=== PATIENT | female | born 1965 | race Caucasian/White ===

== ENCOUNTER 2021-12-12 15:25 | Inpatient (IN) | payer OTHER, SELFPAY ==
[2021-12-12] VITALS (39 sets, daily range): BP systolic 80–102; BP diastolic 14–63; PULSE 84–123; RESP 13–20; TEMP 36.8–37.9; O2SAT 93–100; BMI 16.5
--- NOTE | ~2021-12-12 | XR_ITS ---
EXAMINATION: XR chest 1V portable 12/12/2021 16:09 INDICATION: Chest pain PROCEDURE: 2 view chest COMPARISON: Comparison to multiple prior studies sequentially, with oldest reviewed study dated 03/2019. FINDINGS: The lungs are clear. The cardiomediastinal silhouette is within normal limits. There are no pleural effusions. There is no pneumothorax suspected. IMPRESSION: 1: NO ACUTE CARDIOPULMONARY DISEASE. Reviewed, dictated and finalized at location B. NSIC INVESTIGATOR
--- NOTE | ~2021-12-12 | XR_ITS ---
XR hip RT 2V w AP pelvis DATE: 12/12/2021 17:34 INDICATION: Right hip pain. No known injury. TECHNIQUE: Portable AP pelvis and AP and lateral right hip views COMPARISON: 12/07/2018 AP pelvis and right hip FINDINGS: Limited examination due to nonstandard positioning, with adduction and flexion of the right hip. The pubic symphysis and sacroiliac joints appear intact. No fracture or dislocation, avascular necrosis or bone destruction of the right hip is evident. The j oint spaces appear symmetric and well preserved. IMPRESSION: No apparent fracture; limited examination due to nonstandard positioning Reviewed, dictated and finalized at location A. F PROCUREMENT OFFICER IMPRESSION: No apparent fracture; limited examination due to nonstandard positi oning
[2021-12-12 16:20] LABS: Hematocrit 42.9 % (37.0-47.0); Hemoglobin 14.5 g/dL (12.0-15.0); Mean Corpuscular HGB Conc 33.8 g/dl (32-36); Mean Corpuscular Hemoglobin 30.9 pg (26-34); Mean Corpuscular Volume 91.3 fl (80-100); Mean Platelet Volume 10.1 fl (7.4-10.4); Platelet Count Result 375 k/mm3 (150-375); Red Cell Distribution Width 13.2 % (11.5-14.5)
[2021-12-12 16:29] LABS: INR 1.1; Prothrombin Time 13.6 Seconds (11.1-14.7)
[2021-12-12 16:30] LABS: Partial Thromboplastin Time 30.7 SECONDS (22.3-36.8)
[2021-12-12 16:32] LABS: Lactic Acid Reflex 2.8 mmol/L (0.7-2.1)
[2021-12-12 16:33] LABS: Add Urine Microscopic? YES; Alanine Aminotransferase 30 U/L (4-35); Albumin Level 4.4 g/dL (3.5-5.1); Alkaline Phosphatase 243 U/L (38-126); Anion Gap 6 mmol/L (8-16); Appearance Urine Cloudy (Clear); Aspartate Amino Transferase 37 U/L (14-36); Bilirubin Urine Negative (Negative); Bilirubin,Total 0.7 mg/dL (0.2-1.3); Blood Urea Nitrogen 14 mg/dL (7-17); Blood Urine Negative (Negative); Calcium 9.9 mg/dL (8.4-10.2); Carbon Dioxide 24 mmol/L (22-30); Chloride 108 mmol/L (98-107); Color Urine Yellow (Yellow); Estimated Glomerular Filt Rate > 60; Glucose 139 mg/dL (65-110); Glucose Urine UA Negative (Negative); Ketones Urine Negative (Negative); Leukocyte Esterase Ur 2+ LEU/UL (Negative); Mucus Urine Few /lpf; Nitrate Urine Positive (Negative); Potassium 3.9 mmol/L (3.4-5.0); Protein Urine 1+ mg/dL (Negative); Sodium 138 mmol/L (137-145); Specific Grav Ur 1.017 (1.001-1.035); Squamous Epithelial Cell Urine Few /hpf (Few); Urobilinogen Urine Negative mg/dL (<2.0); WBC Urine >75 /hpf
[2021-12-12] MEDS: SODIUM CHLORIDE 0.9% IV 1,000 ML 999 ML IV CONT (16:53)
--- NOTE | 2021-12-12 16:56 | ED.LOWEXIN ---
HPI - Extremity Injury (Lower) General Chief Complaint: Extremity Injury, Lower Stated Complaint: Hip Pain, bed bound from MS Time Seen by Provider: 12/12/21 15:34 History of Present Illness HPI Narrative: Patient is a 56-year-old female who presents to the ER with possible left hip pain. Patient found to be afebrile. Patient is chronically bedbound. She has MS. She was supposed to go to a halfway today. Patient is oriented x1-2. Cannot give history as to why she is at the hospital. Daughter arrived reports that patient's right leg was flexed up more than typical today and was complaining of pain when they tried to extend it. No known trauma. Related Data Allergies Allergy/AdvReac Type Severity Reaction Status Date / Time codeine Allergy Intermediate SPACED OUT Verified 12/01/18 14:13 guaifenesin Allergy Mild Verified 12/01/18 14:13 pseudoephedrine Allergy Unknown Verified 12/12/21 15:44 triprolidine Allergy Unknown Verified 12/12/21 15:44 Review of Systems Review of Systems: ROS unobtainable: Yes unobtainable due to mental status [facility] Past Medical History Medical History (Updated 12/12/21 @ 17:19 by Rusty Reeves MD) Anxiety Depression Kidney stones Multiple sclerosis Surgical History Surgical History (Updated 12/12/21 @ 16:59 by Rusty Reeves MD) No pertinent past surgical history Social History Social History (Updated 12/12/21 @ 16:59 by Rusty Reeves MD) Smoking status: Current every day smoker Exam Narrative: GENERAL: Chronically ill-appearing, thin, and in no acute distress. HEAD: Normocephalic, atraumatic. EYES: PERRL and EOMI. ENT: Mucous membranes moist. CHEST: Rales noted left mid and lower lung glasgow.. No respiratory distress. HEART: Tachycardic and regular. Normal peripheral pulses. ABDOMEN: Soft, nontender, nondistended. EXTREMITIES: Patient flexing the upper and lower extremities towards her chest. Arms can be extended at the skin left lower extremity. Mild tenderness over the right hip and without swelling/redness/deformity. SKIN: Warm, dry, no rash. NEURO: Alert and oriented x1-2. Course Course Emergency Course: IV ceftriaxone for infection. Admit to hospitalist service. Patient's daughter reports patient has had declining health since August 2021. Would like only comfort based treatments as patient is a DNR. Vital Signs Vital signs: Vital Signs Pulse Rate 116 H 12/12/21 15:32 Respiratory Rate 18 12/12/21 15:32 Pulse Oximetry 94 12/12/21 15:32 Temperature 100.3 F H 12/12/21 15:34 Pulse Rate 106 H 12/12/21 18:22 Respiratory Rate 17 12/12/21 18:22 Blood Pressure 93/58 L 12/12/21 18:22 Pulse Oximetry 100 12/12/21 18:01 MDM - Extremity Injury (Lower) Lab Data Result diagrams: 12/12/21 16:00 12/12/21 16:00 Labs: Lab Results 12/12/21 12/12/21 12/12/21 Range/Units 15:59 16:00 16:00 WBC 21.0 H (4.5-10.0) K/mm3 RBC 4.70 (4.2-5.4) M/mm3 Hgb 14.5 (12.0-15.0) g/dL Hct 42.9 (37.0-47.0) % MCV 91.3 (80-100) fl MCH 30.9 (26-34) pg MCHC 33.8 (32-36) g/dl RDW 13.2 (11.5-14.5) % Plt Count 375 (150-375) k/mm3 MPV 10.1 (7.4-10.4) fl Immature Gran % (Auto) Not Reportable Neut % (Auto) Not Reportable Lymph % (Auto) Not Reportable Cedar % (Auto) Not Reportable Eos % (Auto) Not Reportable Baso % (Auto) Not Reportable Lymph # (Auto) Not Reportable Cedar # (Auto) Not Reportable Eos # (Auto) Not Reportable Baso # (Auto) Not Reportable Abs Immat Gran (auto) Not Reportable Absolute Neuts (auto) Not Reportable Absolute Nucleated RBC Not Reportable Total Counted 100 Neutrophils % (Manual) 67 (46-73) % Band Neutrophils % 25 H (0-6) % Monocytes % (Manual) 2 L (3-9) % Metamyelocytes % 3 % Myelocytes % 3 % Nucleated RBC % Not Reportable Abs Neuts (Manual) 19.32 H
[2021-12-12 17:06] LABS: Band Neutrophils Percent 25 % (0-6); Metamyelocytes Percent 3 %; Monocytes Absolute Manual 0.42 K/mm3 (0.1-0.90); Monocytes Percent Manual 2 % (3-9); Myelocytes Percent 3 %; Neutrophils Absolute Manual 19.32 K/mm3 (1.7-7.2); Neutrophils Percent Manual 67 % (46-73); Platelet Estimate Adequate (Adequate); Total Cells Counted 100
[2021-12-12 17:07] LABS: Smudge Cells FEW
--- NOTE | 2021-12-12 17:32 | PC.NURSE ---
community outreach coordinator ordered pt room tray @ [phone]
[2021-12-12] MEDS: LACTATED RINGERS 1,000 ML 999 ML IV CONT (17:50)
[2021-12-12 19:17] LABS: Reflex Lactic Acid Yes or No Add Lactic
[2021-12-12] MEDS: SODIUM CHLORIDE 0.9% IV 1,000 ML 125 ML IV CONT (20:22)
--- NOTE | 2021-12-12 20:44 | PM.IMHP ---
H&P: HPI History of Present Illness Date/Time: 12/12/21 20:44 this is a 56-year-old female patient with a history of MS and is typically bedbound. The patient came in to the emergency room with complaints of left hip pain. The patient was supposed to be placed in a retirement today. She is answering some questions without difficulty per the daughters at the bedside. The daughter states that the patient is typically contracted some but is more contracted today than usual. The patient has no known trauma. Her white count is listed as 21.0. The patient has 25% band neutrophils. Her lactic was 2.8 repeat is 3.3. AST 37 alkaline phosphatase 243. C reactive protein 3.0. The patient was found to be positive for UTI. Hip and pelvis x-ray no apparent fracture limited examination due to nonstandard positioning. Chest x-ray was read as no acute Cardiopulmonary disease. The patient was given 3 L of fluid in the emergency room as the Rocephin. Urine cultures are pending. The patient is being admitted to observation status on the date of service of 12/12/2021. Chief Complaint: Weakness Review of Systems Review of Systems: The patient was answering some questions but was not able answer all them and the daughter was at the bedside answering questions as well too. ROS unobtainable: Yes unobtainable due to mental status [facility] Past Medical History Medical History (Updated 12/12/21 @ 23:21 by Shayla Mccallum NP) Anxiety Depression Kidney stones Multiple sclerosis Surgical History Surgical History No pertinent past surgical history Family History Family History Father Dementia Heart disease Social History Social History (Updated 12/12/21 @ 23:16 by Shayla Mccallum NP) Social History: The patient has 5 children. And lives with her but it sounds like she was supposed to go to a retirement today. The patient is typically bed lb and is on disability. 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 Her daughter saira castaneda is her power of watermaster for healthcare. patient is listed as a current smoker Code status DNR Smoking status: Current every day smoker Meds Home Medications and Allergies Home Medications Medication Instructions Recorded Confirmed Type amoxicillin 875 mg PO Q12H 12/12/21 History cholecalciferol (vitamin D3) 1,250 mcg PO WEEKLY 12/12/21 History fingolimod [Gilenya] 0.5 mg PO DAILY 12/12/21 History megestrol 400 mg PO DAILY 12/12/21 History mirtazapine 30 mg PO HS 12/12/21 History Allergies Allergy/AdvReac Type Severity Reaction Status Date / Time codeine Allergy Intermediate SPACED OUT Verified 12/01/18 14:13 guaifenesin Allergy Mild Verified 12/01/18 14:13 pseudoephedrine Allergy Unknown Verified 12/12/21 15:44 triprolidine Allergy Unknown Verified 12/12/21 15:44 Vital Signs Vital Signs - 24 hr 12/12/21 15:32 12/12/21 15:33 12/12/21 15:34 Temperature 37.9 C H Pulse Rate 116 H 115 H 114 H Respiratory Rate 18 18 18 Blood Pressure 102/48 L 102/48 L Pulse Oximetry 94 94 94 12/12/21 15:45 12/12/21 15:46 12/12/21 16:00 Temperature Pulse Rate 114 H 112 H 123 H Respiratory Rate 18 17 19 Blood Pressure 101/15 L 85/19 L Pulse Oximetry 12/12/21 16:01 12/12/21 16:15 12/12/21 16:16 Temperature Pulse Rate 117 H 110 H 110 H Respiratory Rate 19 18 18 Blood Pressure 98/14 L Pulse Oximetry 12/12/21 16:30 12/12/21 16:31 12/12/21 16:45 Temperature Pulse Rate 105 H 104 H 104 H Respiratory Rate 15 19 19 Blood Pressure 97/41 L 99/45 L Pulse Oximetry 12/12/21 16:46 12/12/21 17:00 12/12/21 17:01 Temperature Pulse Rate 101 H 103 H 104 H Respiratory Rate 16 18 18 Blood Pressure 94/18 L Pulse Oximetry 12/12/21 17:15 12/12/21 17:16 12/12/21 17:30 Temperature Pulse Rate 108 H 106 H 105 H Respirat
[2021-12-12 22:28] LABS: Lactic Acid 3.3 mmol/L (0.7-2.1)
[2021-12-13] VITALS (19 sets, daily range): BP systolic 81–96; BP diastolic 44–54; PULSE 69–86; RESP 14–20; TEMP 35.6–36.9; O2SAT 94–100
[2021-12-13] MEDS: SODIUM CHLORIDE 0.9% IV 1,000 ML 125 ML IV CONT ×3 (00:07→18:03)
--- NOTE | 2021-12-13 01:45 | PC.NURSE ---
Left message at phone number for Lur[facility] to call back to complete admission.
--- NOTE | 2021-12-13 04:36 | PC.NURSE ---
This patient, Corry Canela, was admitted to IMU Room 200-01. Patient unable oriented to hospital policies and general routines including ID bracelet, bed and alarms, visiting hours, pain management, procedures, bathroom and other care routines, personal items, smoking policy, room service/diet, and visiting hours due to orientation status. Unable to reach family as of yet.
[2021-12-13 05:03] LABS: Basophils Absolute Auto 0.1 K/mm3 (0.0-0.1); Basophils Percent Auto 0.3 % (0.2-1.2); Eosinophils Absolute Auto 0.1 K/mm3 (0-0.3); Eosinophils Percent Auto 0.4 % (0-4.4); Hematocrit 34.4 % (37.0-47.0); Hemoglobin 10.7 g/dL (12.0-15.0); Immature Granulocyte Absolute 0.06 K/mm3 (0.00-0.031); Immature Granulocyte Percent A 0.4 % (0-0.5); Lymphocytes Absolute Auto 1.63 K/mm3 (0.9-3.2); Lymphocytes Percent Auto 11.1 % (18.3-44.2); Mean Corpuscular HGB Conc 31.1 g/dl (32-36); Mean Corpuscular Hemoglobin 30.8 pg (26-34); Mean Corpuscular Volume 99.1 fl (80-100); Mean Platelet Volume 10.2 fl (7.4-10.4); Monocytes Absolute Auto 0.5 K/mm3 (0.1-0.6); Monocytes Percent Auto 3.5 % (2.6-8.5); Neutrophils Absolute Auto 12.4 K/mm3 (1.3-6.7); Neutrophils Percent Auto 84.3 % (45.5-73.1); Platelet Count Result 271 k/mm3 (150-375); Red Blood Count 3.47 M/mm3 (4.2-5.4); Red Cell Distribution Width 13.5 % (11.5-14.5); White Blood Count 14.7 K/mm3 (4.5-10.0)
[2021-12-13 05:10] LABS: Lactate Dehydrogenase 321 U/L (313-618); Magnesium 1.8 mg/dL (1.6-2.3)
[2021-12-13 05:11] LABS: Lactic Acid Reflex 0.7 mmol/L (0.7-2.1)
[2021-12-13 05:54] LABS: Thyroid Stimulating Hormone Reflex 0.862 uIU/mL (0.465-4.68)
[2021-12-13] MEDS: ENOXAPARIN 40 MG/0.4 ML SYRINGE SUB-Q (09:42)
[2021-12-13] MEDS: EUCERIN CREAM 120 GM JAR 1 APPLIC TOPICAL (09:43)
--- NOTE | 2021-12-13 10:17 | PM.IMPN ---
Progress Note: A&P Assessment and Plan (1) UTI (urinary tract infection): Code(s): N39.0 - Urinary tract infection, site not specified Status: Acute Assessment and Plan: the patient was started on Rocephin. Blood and urine cultures are pending. The patient has leukocytosis. (2) Sepsis: Code(s): A41.9 - Sepsis, unspecified organism Status: Acute (3) Multiple sclerosis: Code(s): G35 - Multiple sclerosis Status: Chronic Assessment and Plan: The patient is typically bed bound but the patient is more weak than normal. The family stated that the we are going to put her in a detention today. I did consult skin care instructor and I ordered PT OT. Continue with home medications. (4) Depression: Code(s): F32.A - Depression, unspecified Status: Chronic Assessment and Plan: Continue with home medications. (5) Anxiety: Code(s): F41.9 - Anxiety disorder, unspecified Status: Chronic Assessment and Plan: Continue with home medications. Additional Plan 12/13/21 BP low this am but labs improved RN requested to repeat VS bolus 500cc NS if repeat pressure still low monitor VS cont Rocephin am labs ordered Time Spent With Patient Time with patient: 25 - 35 minutes Subjective Date/time seen: 12/13/21 10:17 pt without complaints oriented x 2 cooperative Exam Narrative: GEN: NAD, AAOx2, cooperative, eating breakfast HEENT: NCAT, MMM, EOMI Neck: no JVD Heart: S1S2 RRR Lungs: symmetric chest rise, no use of accessory muscles Abd: soft, NT, ND Ext: moves all, no cyanosis, no clubbing, no edema Objective Data Vital Signs Vital Signs: Vital Signs - 24 hr 12/12/21 15:32 12/12/21 15:33 12/12/21 15:34 Temperature 100.3 F H Pulse Rate 116 H 115 H 114 H Respiratory Rate 18 18 18 Blood Pressure 102/48 L 102/48 L Pulse Oximetry 94 94 94 12/12/21 15:45 12/12/21 15:46 12/12/21 16:00 Temperature Pulse Rate 114 H 112 H 123 H Respiratory Rate 18 17 19 Blood Pressure 101/15 L 85/19 L Pulse Oximetry 12/12/21 16:01 12/12/21 16:15 12/12/21 16:16 Temperature Pulse Rate 117 H 110 H 110 H Respiratory Rate 19 18 18 Blood Pressure 98/14 L Pulse Oximetry 12/12/21 16:30 12/12/21 16:31 12/12/21 16:45 Temperature Pulse Rate 105 H 104 H 104 H Respiratory Rate 15 19 19 Blood Pressure 97/41 L 99/45 L Pulse Oximetry 12/12/21 16:46 12/12/21 17:00 12/12/21 17:01 Temperature Pulse Rate 101 H 103 H 104 H Respiratory Rate 16 18 18 Blood Pressure 94/18 L Pulse Oximetry 12/12/21 17:15 12/12/21 17:16 12/12/21 17:30 Temperature Pulse Rate 108 H 106 H 105 H Respiratory Rate 18 17 17 Blood Pressure 96/46 L 91/41 L Pulse Oximetry 12/12/21 17:31 12/12/21 17:45 12/12/21 17:46 Temperature Pulse Rate 103 H 106 H 103 H Respiratory Rate 17 20 17 Blood Pressure 92/41 L Pulse Oximetry 100 100 12/12/21 18:00 12/12/21 18:01 12/12/21 18:15 Temperature Pulse Rate 102 H 100 103 H Respiratory Rate 16 17 15 Blood Pressure 90/47 L Pulse Oximetry 99 100 12/12/21 18:16 12/12/21 18:22 12/12/21 18:23 Temperature Pulse Rate 106 H 106 H 103 H Respiratory Rate 17 17 18 Blood Pressure 80/46 L 93/58 L Pulse Oximetry 12/12/21 18:30 12/12/21 18:31 12/12/21 18:45 Temperature Pulse Rate 105 H 102 H 98 Respiratory Rate 19 15 17 Blood Pressure 91/59 L 99/59 L Pulse Oximetry 12/12/21 18:46 12/12/21 19:00 12/12/21 19:01 Temperature Pulse Rate 99 95 98 Respiratory Rate 15 13 16 Blood Pressure 94/55 L Pulse Oximetry 12/12/21 19:15 12/12/21 19:16 12/12/21 20:20 Temperature 99.1 F Pulse Rate 100 99 95 Respiratory Rate 16 16 15 Blood Pressure 100/57 L 94/63 L Pulse Oximetry 93 95 94 12/12/21 21:56 12/12/21 22:24 01/28/22 22:30 Temperature 98.3 F Pulse Rate 89 88 84 Respiratory Rate 17 16 Blood Pressure 93/53 L Pulse Oximet
[2021-12-13] MEDS: SODIUM CHLORIDE 0.9% IV 500 ML IV CONT (11:10)
[2021-12-13] MEDS: HYDROcodone/acetaminophen (*CRX) 5-325 MG TABLET 1 TAB PO (22:53)
[2021-12-14] VITALS (16 sets, daily range): BP systolic 84–110; BP diastolic 45–76; PULSE 52–78; RESP 12–20; TEMP 36.1–37.4; O2SAT 97–100
[2021-12-14] MEDS: SODIUM CHLORIDE 0.9% IV 1,000 ML 125 ML IV CONT ×3 (02:05→17:45)
[2021-12-14 05:25] LABS: Basophils Percent Auto 0.4 % (0.2-1.2); Eosinophils Absolute Auto 0.1 K/mm3 (0-0.3); Eosinophils Percent Auto 2.3 % (0-4.4); Hematocrit 30.7 % (37.0-47.0); Hemoglobin 9.7 g/dL (12.0-15.0); Immature Granulocyte Absolute 0.02 K/mm3 (0.00-0.031); Immature Granulocyte Percent A 0.4 % (0-0.5); Lymphocytes Absolute Auto 2.13 K/mm3 (0.9-3.2); Lymphocytes Percent Auto 38.1 % (18.3-44.2); Mean Corpuscular HGB Conc 31.6 g/dl (32-36); Mean Corpuscular Hemoglobin 30.6 pg (26-34); Mean Corpuscular Volume 96.8 fl (80-100); Mean Platelet Volume 10.8 fl (7.4-10.4); Monocytes Absolute Auto 0.4 K/mm3 (0.1-0.6); Neutrophils Absolute Auto 2.9 K/mm3 (1.3-6.7); Neutrophils Percent Auto 51.8 % (45.5-73.1); Platelet Count Result 221 k/mm3 (150-375); Red Blood Count 3.17 M/mm3 (4.2-5.4); Red Cell Distribution Width 13.6 % (11.5-14.5); White Blood Count 5.6 K/mm3 (4.5-10.0)
[2021-12-14] MEDS: SODIUM CHLORIDE 0.9% IV 500 ML IV CONT ×2 (05:50→12:09)
[2021-12-14 06:19] LABS: Anion Gap 1 mmol/L (8-16); Blood Urea Nitrogen 12 mg/dL (7-17); CRP 11.4 mg/dL (<1.0); Calcium 8.1 mg/dL (8.4-10.2); Carbon Dioxide 23 mmol/L (22-30); Chloride 113 mmol/L (98-107); Estimated CRCL calculation 71 ml/min; Estimated Glomerular Filt Rate > 60; Glucose 78 mg/dL (65-110); Magnesium 1.8 mg/dL (1.6-2.3); Potassium 3.7 mmol/L (3.4-5.0); Sodium 137 mmol/L (137-145)
--- NOTE | 2021-12-14 10:00 | PM.IMPN ---
Progress Note: A&P Assessment and Plan (1) Multiple drug resistant organism (MDRO) culture positive: Code(s): Z16.24 - Resistance to multiple antibiotics Status: Acute (2) Sepsis: Code(s): A41.9 - Sepsis, unspecified organism Status: Acute (3) Anxiety: Code(s): F41.9 - Anxiety disorder, unspecified Status: Chronic (4) Depression: Code(s): F32.A - Depression, unspecified Status: Chronic (5) Multiple sclerosis: Code(s): G35 - Multiple sclerosis Status: Chronic (6) UTI (urinary tract infection): Code(s): N39.0 - Urinary tract infection, site not specified Status: Acute (7) Bacterial infection due to Morganella morganii: Code(s): A49.8 - Other bacterial infections of unspecified site Status: Acute Additional Plan 12/13/21 BP low this am but labs improved RN requested to repeat VS bolus 500cc NS if repeat pressure still low monitor VS cont Rocephin am labs ordered 12/14/21 BP remains low despite 3L NS MAP <65 midodrine low dose started CHEETAH score + fluid responsive cont Rocephin for MDRO M morganii UTI Day 3 no oral medication available will need to complete treatment given pathogenicity and MDRO of bacteria will treat for 5 days to ensure treatment Subjective Date/time seen: 12/14/21 10:00 doing ok RN bedside Cheetah + IVFs ordered Exam Narrative: GEN: NAD, AAOx3, cooperative HEENT: NCAT, MMM, EOMI Neck: no JVD Lungs: symmetric chest rise, no use of accessory muscles Abd: soft, NT, ND Ext: moves all, no cyanosis, no clubbing, no edema Objective Data Vital Signs Vital Signs: Vital Signs - 24 hr 12/13/21 12:00 12/13/21 13:12 12/13/21 14:00 Temperature 98.0 F Pulse Rate 76 75 78 Respiratory Rate 16 Blood Pressure 89/44 L Pulse Oximetry 97 12/13/21 16:00 12/13/21 16:19 12/13/21 18:00 Temperature 98.3 F Pulse Rate 69 73 86 Respiratory Rate 16 Blood Pressure 84/51 L Pulse Oximetry 98 12/13/21 20:00 12/13/21 22:00 12/14/21 00:00 Temperature 98.5 F 98.1 F Pulse Rate 76 78 74 Respiratory Rate 16 14 Blood Pressure 96/52 L 92/52 L Pulse Oximetry 100 100 12/14/21 00:11 12/14/21 02:00 12/14/21 04:00 Temperature 97.0 F L Pulse Rate 69 69 Respiratory Rate 12 Blood Pressure 84/45 L Pulse Oximetry 98 97 12/14/21 06:00 12/14/21 07:29 Temperature 97.5 F L Pulse Rate 71 62 Respiratory Rate 16 Blood Pressure 88/52 L Pulse Oximetry 97 Intake/Output Intake/Output: Intake & Output 12/11/21 12/12/21 12/13/21 12/14/21 23:59 23:59 23:59 23:59 Intake Total 2150 3180 1300 Balance 2150 3180 1300 Meds/Results Medications: Active Medications Generic Name Dose Route Start Last Admin Trade Name Freq PRN Reason Stop Dose Admin Acetaminophen 650 mg 12/12/21 17:10 Acetaminophen 325 Mg Tablet PO Q4H PRN Mild Pain (1-3) or Fever Hydrocodone Bitart/Acetaminophen 1 tab 12/12/21 17:10 12/13/21 22:53 Hydrocodone/Acetaminophen (*Crx) 5-325 Mg Tablet PO 1 tab Q4H PRN Administration Pain Rated 4-6 Enoxaparin Sodium 40 mg 12/13/21 09:00 12/13/21 09:42 Enoxaparin 40 Mg/0.4 Ml Syringe SUB-Q 40 mg DAILY JOCELYN Administration Sodium Chloride 1,000 mls @ 125 mls/hr 12/12/21 17:10 12/14/21 02:05 Normal Saline Iv IV CONT 125 mls/hr .Q8H JOCELYN Administration Ceftriaxone Sodium/Dextrose 1 gm in 50 mls @ 100 mls/hr 12/13/21 18:00 12/13/21 18:30 Rocephin 1 Gm/D5w 50 Ml IVPB Infused QPM JOCELYN Infusion Multi-Ingred Cream/Lotion/Oil/Oint 1 applic 12/13/21 09:00 12/13/21 09:43 Eucerin Cream 120 Gm Jar TOPICAL 1 applic DAILY JOCELYN Administration Ondansetron HCl 4 mg 12/12/21 17:10 Ondansetron Inj 4 Mg/2 Ml Vial IV PUSH Q4H PRN Nausea Radiology Results: ITS Impressions Chest X-Ray 12/12/21 16:17 IMPRESSION: 1: NO ACUTE CARDIOPULMONARY DISEASE. Hip/Pelvis X-Ray
[2021-12-14] MEDS: ENOXAPARIN 40 MG/0.4 ML SYRINGE SUB-Q (10:11)
[2021-12-14] MEDS: EUCERIN CREAM 120 GM JAR 1 APPLIC TOPICAL (10:11)
[2021-12-14] MEDS: MIDODRINE HCL 2.5 MG TABLET PO (17:44)
[2021-12-15] VITALS (17 sets, daily range): BP systolic 92–122; BP diastolic 46–87; PULSE 49–79; RESP 16–20; TEMP 35.6–36.8; O2SAT 97–100; BMI 17.3
[2021-12-15] MEDS: HYDROcodone/acetaminophen (*CRX) 5-325 MG TABLET 1 TAB PO (00:15)
[2021-12-15] MEDS: SODIUM CHLORIDE 0.9% IV 1,000 ML 125 ML IV CONT ×3 (00:18→16:36)
[2021-12-15] MEDS: EUCERIN CREAM 120 GM JAR 1 APPLIC TOPICAL (09:04)
[2021-12-15] MEDS: ENOXAPARIN 40 MG/0.4 ML SYRINGE SUB-Q (09:04)
[2021-12-15] MEDS: MIDODRINE HCL 2.5 MG TABLET PO ×2 (09:04→16:31)
--- NOTE | 2021-12-15 18:28 | PM.IMPN ---
Progress Note: A&P Assessment and Plan (1) Multiple drug resistant organism (MDRO) culture positive: Code(s): Z16.24 - Resistance to multiple antibiotics Status: Acute (2) Sepsis: Code(s): A41.9 - Sepsis, unspecified organism Status: Acute (3) Anxiety: Code(s): F41.9 - Anxiety disorder, unspecified Status: Chronic Assessment and Plan: Continue with home medications. (4) Depression: Code(s): F32.A - Depression, unspecified Status: Chronic Assessment and Plan: Continue with home medications. (5) Multiple sclerosis: Code(s): G35 - Multiple sclerosis Status: Chronic Assessment and Plan: The patient is typically bed bound but the patient is more weak than normal. The family stated that the we are going to put her in a care home today. I did consult care assistant and I ordered PT OT. Continue with home medications. (6) UTI (urinary tract infection): Code(s): N39.0 - Urinary tract infection, site not specified Status: Acute Assessment and Plan: the patient was started on Rocephin. Blood and urine cultures are pending. The patient has leukocytosis. (7) Bacterial infection due to Morganella morganii: Code(s): A49.8 - Other bacterial infections of unspecified site Status: Acute Additional Plan 12/13/21 BP low this am but labs improved RN requested to repeat VS bolus 500cc NS if repeat pressure still low monitor VS cont Rocephin am labs ordered 12/14/21 BP remains low despite 3L NS MAP <65 midodrine low dose started CHEETAH score + fluid responsive cont Rocephin for MDRO M morganii UTI Day 3 no oral medication available will need to complete treatment given pathogenicity and MDRO of bacteria will treat for 7 days to ensure treatment 12/15/21 Patient continues to clinically improve Currently on day 4 of 7 Rocephin treatment 7 day course as patient arrived to the hospital septic hypotensive with complicated multidrug resistant UTI without PO treatment option cont midodrine decrease IVFs to 75cc/ hr PO intake and bp improving anticipate dc of NS possibly tomorrow cont supportive care cont home meds when brought in by daughter Subjective Date/time seen: 12/15/21 18:28 Patient looks significantly improved sitting up in a chair eating today without complaints Spoke with rn case management regarding discharge to shelter facility with midline and ongoing Rocephin to ensure total eradication of multi drug-resistant organism. She states that the shelter facility will be unable to administer Rocephin IV but they would be able to do this I a.m. if this would be appropriate. I advised her that I have not previously sent to patient with IV to IM Rocephin for prolonged treatment course, however, I will defer this to oncoming hospitalist based on their knowledge, preferences, and experiences. Exam Narrative: GEN: NAD, AAOx3, cooperative sitting up in a chair eating her lunch HEENT: NCAT, MMM, EOMI Neck: no JVD Lungs: symmetric chest rise, no use of accessory muscles Abd: soft, NT, ND Ext: moves all, no cyanosis, no clubbing, no edema Objective Data Vital Signs Vital Signs: Vital Signs - 24 hr 12/14/21 20:00 12/14/21 22:00 12/14/21 23:24 Temperature 98.0 F Pulse Rate 71 69 65 Respiratory Rate 20 Blood Pressure 110/76 Pulse Oximetry 97 12/14/21 23:52 12/15/21 00:00 12/15/21 02:00 Temperature 97.9 F Pulse Rate 62 58 L 62 Respiratory Rate 20 Blood Pressure 105/74 Pulse Oximetry 97 12/15/21 03:02 12/15/21 04:00 12/15/21 06:00 Temperature 97.8 F Pulse Rate 62 49 L 57 L Respiratory Rate 18 Blood Pressure 109/76 Pulse Oximetry 97 12/15/21 08:00 12/15/21 08:30 12/15/21 10:00 Temperature 98.3 F Pulse Rate 54 L 61 79 Respiratory Rate 18 Blood Pressure 122/67 Pulse Oximetry 98 12/15/21 12:00 12/15/21 12:46 12/15/21 14:00
[2021-12-15] MEDS: MIRTAZAPINE 30 MG TABLET PO (21:14)
--- NOTE | 2021-12-15 22:54 | PHAR ---
VERIFIED HOME MED: *USE FROM HOME* Fingolimod [Gilenya] 0.5 mg Capsule TAKE ONE CAPSULE BY MOUTH ONCE DAILY
[2021-12-16] VITALS (13 sets, daily range): BP systolic 88–109; BP diastolic 44–95; PULSE 53–70; RESP 16–18; TEMP 35.9–36.6; O2SAT 97–99
[2021-12-16] MEDS: SODIUM CHLORIDE 0.9% IV 1,000 ML 75 ML IV CONT (04:06)
[2021-12-16 05:01] LABS: Basophils Percent Auto 0.5 % (0.2-1.2); Eosinophils Absolute Auto 0.2 K/mm3 (0-0.3); Eosinophils Percent Auto 3.2 % (0-4.4); Hematocrit 35.2 % (37.0-47.0); Hemoglobin 11.2 g/dL (12.0-15.0); Immature Granulocyte Absolute 0.02 K/mm3 (0.00-0.031); Immature Granulocyte Percent A 0.3 % (0-0.5); Lymphocytes Percent Auto 42.1 % (18.3-44.2); Mean Corpuscular HGB Conc 31.8 g/dl (32-36); Mean Corpuscular Hemoglobin 30.6 pg (26-34); Mean Corpuscular Volume 96.2 fl (80-100); Mean Platelet Volume 10.9 fl (7.4-10.4); Monocytes Absolute Auto 0.4 K/mm3 (0.1-0.6); Neutrophils Absolute Auto 2.9 K/mm3 (1.3-6.7); Neutrophils Percent Auto 46.9 % (45.5-73.1); Platelet Count Result 300 k/mm3 (150-375); Red Blood Count 3.66 M/mm3 (4.2-5.4); Red Cell Distribution Width 13.5 % (11.5-14.5); White Blood Count 6.2 K/mm3 (4.5-10.0)
[2021-12-16 05:23] LABS: Alanine Aminotransferase 128 U/L (4-35); Albumin Level 2.7 g/dL (3.5-5.1); Alkaline Phosphatase 238 U/L (38-126); Anion Gap 4 mmol/L (8-16); Aspartate Amino Transferase 102 U/L (14-36); Bilirubin,Total 0.2 mg/dL (0.2-1.3); Blood Urea Nitrogen 7 mg/dL (7-17); Calcium 8.4 mg/dL (8.4-10.2); Carbon Dioxide 24 mmol/L (22-30); Chloride 113 mmol/L (98-107); Estimated CRCL calculation 71 ml/min; Estimated Glomerular Filt Rate > 60; Glucose 115 mg/dL (65-110); Phosphorus 3.6 mg/dL (2.5-4.5); Potassium 3.7 mmol/L (3.4-5.0); Sodium 141 mmol/L (137-145)
[2021-12-16] MEDS: MIDODRINE HCL 2.5 MG TABLET PO (08:31)
[2021-12-16] MEDS: ENOXAPARIN 40 MG/0.4 ML SYRINGE SUB-Q (08:31)
[2021-12-16] MEDS: MEGESTROL ACETATE (*CHEMO) ORAL SUSP 40 MG/ML SYR 400 MG PO (08:32)
[2021-12-16] MEDS: EUCERIN CREAM 120 GM JAR 1 APPLIC TOPICAL (08:34)
--- NOTE | 2021-12-16 11:54 | PCOTNOTE ---
Attempted to see Patient for A.M. treatment session. Patient was very difficult to keep aroused, stated, so sleepy/drowsy. Therapist took BP, supine 88/44, HR 56, O2 98%. RN notified and aware.
[2021-12-16] MEDS: LIDOCAINE HCL 1% LOCAL INJ 2 ML AMPUL 5 ML INFILTRATE (13:35)
--- NOTE | 2021-12-16 15:31 | PM.IMPN ---
Progress Note: A&P Assessment and Plan (1) Multiple drug resistant organism (MDRO) culture positive: Code(s): Z16.24 - Resistance to multiple antibiotics Status: Acute (2) Sepsis: Code(s): A41.9 - Sepsis, unspecified organism Status: Acute (3) Anxiety: Code(s): F41.9 - Anxiety disorder, unspecified Status: Chronic Assessment and Plan: Continue with home medications. (4) Depression: Code(s): F32.A - Depression, unspecified Status: Chronic Assessment and Plan: Continue with home medications. (5) Multiple sclerosis: Code(s): G35 - Multiple sclerosis Status: Chronic Assessment and Plan: The patient is typically bed bound but the patient is more weak than normal. The family stated that the we are going to put her in a mcc today. I did consult care tech and I ordered PT OT. Continue with home medications. (6) UTI (urinary tract infection): Code(s): N39.0 - Urinary tract infection, site not specified Status: Acute Assessment and Plan: the patient was started on Rocephin. Blood and urine cultures are pending. The patient has leukocytosis. (7) Bacterial infection due to Morganella morganii: Code(s): A49.8 - Other bacterial infections of unspecified site Status: Acute Additional Plan 12/13/21 BP low this am but labs improved RN requested to repeat VS bolus 500cc NS if repeat pressure still low monitor VS cont Rocephin am labs ordered 12/14/21 BP remains low despite 3L NS MAP <65 midodrine low dose started CHEETAH score + fluid responsive cont Rocephin for MDRO M morganii UTI Day 3 no oral medication available will need to complete treatment given pathogenicity and MDRO of bacteria will treat for 7 days to ensure treatment 12/15/21 Patient continues to clinically improve Currently on day 4 of 7 Rocephin treatment 7 day course as patient arrived to the hospital septic hypotensive with complicated multidrug resistant UTI without PO treatment option cont midodrine decrease IVFs to 75cc/ hr PO intake and bp improving anticipate dc of NS possibly tomorrow cont supportive care cont home meds when brought in by daughter Subjective Date/time seen: 12/16/21 15:31 S:Patient looks significantly improved sitting up in a chair eating today without complaints Spoke with registered nurse [facility] case manager regarding discharge to [facility] facility with midline and ongoing Rocephin to ensure total eradication of multi drug-resistant organism. Review of Systems Review of Systems: ROS unobtainable: Yes unobtainable due to mental status ENT: Reports Normal hearing present Neurologic: Reports Normal hearing present Exam Narrative: GEN: NAD, AAOx3, cooperative sitting up in a chair eating her lunch HEENT: NCAT, MMM, EOMI Neck: no JVD Lungs: symmetric chest rise, no use of accessory muscles Abd: soft, NT, ND Ext: moves all, no cyanosis, no clubbing, no edema Const: General: cooperative, comfortable, no acute distress, awake, ill appearing and tired appearing Nutritional Appearance: average body habitus and thin Orientation/consciousness: oriented to person Limitations: no limitations HENMT: Head: normal to inspection, No palpable skull fracture present, normocephalic and atraumatic Ears: hearing grossly normal bilaterally General nose exam: Normal external nose present Eyes: EOM: EOMs intact bilaterally Neck: Neck: normal visual inspection Chest: Chest palpation & inspection: normal inspection of the chest Resp: Effort & Inspection: normal respiratory effort Auscultation: clear to auscultation bilaterally Percussion: percussion normal Cardio: Peripheral pulses: Peripheral pulses 2+ throughout GI: Inspection: normal to inspection Auscultation: normal bowel sounds Rectal Exam: deferred Skin: General skin exam: normal color Hair: normal Other: dry patches of skin to the bottom of he
--- NOTE | 2021-12-16 15:31 | PM.DS ---
DS: Admitting Diagnosis Discharge Date 12/16/2021 Admitting Diagnosis (1) UTI (urinary tract infection): Code(s): N39.0 - Urinary tract infection, site not specified Status: Acute Assessment and Plan: the patient was started on Rocephin. Blood and urine cultures are pending. The patient has leukocytosis. (2) Multiple sclerosis: Code(s): G35 - Multiple sclerosis Status: Chronic Assessment and Plan: The patient is typically bed bound but the patient is more weak than normal. The family stated that the we are going to put her in a custodial today. I did consult home care rn and I ordered PT OT. Continue with home medications. (3) Depression: Code(s): F32.A - Depression, unspecified Status: Chronic Assessment and Plan: Continue with home medications. (4) Anxiety: Code(s): F41.9 - Anxiety disorder, unspecified Status: Chronic Assessment and Plan: DS: Discharge Diagnosis Discharge Diagnosis (1) Multiple drug resistant organism (MDRO) culture positive: Code(s): Z16.24 - Resistance to multiple antibiotics Status: Acute (2) Sepsis: Code(s): A41.9 - Sepsis, unspecified organism Status: Acute (3) Anxiety: Code(s): F41.9 - Anxiety disorder, unspecified Status: Chronic Assessment and Plan: Continue with home medications. (4) Depression: Code(s): F32.A - Depression, unspecified Status: Chronic Assessment and Plan: Continue with home medications. (5) Multiple sclerosis: Code(s): G35 - Multiple sclerosis Status: Chronic Assessment and Plan: The patient is typically bed bound but the patient is more weak than normal. The family stated that the we are going to put her in a custodial today. I did consult home care rn and I ordered PT OT. Continue with home medications. (6) UTI (urinary tract infection): Code(s): N39.0 - Urinary tract infection, site not specified Status: Acute Assessment and Plan: the patient was started on Rocephin. Blood and urine cultures are pending. The patient has leukocytosis. (7) Bacterial infection due to Morganella morganii: Code(s): A49.8 - Other bacterial infections of unspecified site Status: Acute DS: Summary Hospital Course Reason for hospitalization: Weakness. Hospital Course: this is a 56-year-old female patient with a history of MS and is typically bedbound. The patient came in to the emergency room with complaints of left hip pain. The patient was supposed to be placed in a custodial today. She is answering some questions without difficulty per the daughters at the bedside. The daughter states that the patient is typically contracted some but is more contracted today than usual. The patient has no known trauma. Her white count is listed as 21.0. The patient has 25% band neutrophils. Her lactic was 2.8 repeat is 3.3. AST 37 alkaline phosphatase 243. C reactive protein 3.0. The patient was found to be positive for UTI. Hip and pelvis x-ray no apparent fracture limited examination due to nonstandard positioning. Chest x-ray was read as no acute Cardiopulmonary disease. The patient was given 3 L of fluid in the emergency room as the Rocephin. Urine cultures are pending. The patient is being admitted to observation status on the date of service of 12/12/2021. On rocephon, Patient continues to clinically improve. She received 5 of 7 Rocephin treatment in the hospital. She was discharged to receive 2 days of IV antibiotics in the custodial. Urine culture grew Morganella morganii sensitive to rocephin. Time Spent with Patient Time attestation: Total time spent providing and/or coordinating discharge services: Exam Narrative: GEN: NAD, AAOx3, cooperative sitting up in a chair eating her lunch HEENT: NCAT, MMM, EOMI Neck: no JVD Lungs: symmetric chest rise, no use of accessor
[2021-12-16 16:00] LABS: EDCOVIDSCREEN Negative (Negative)
== END 2021-12-16 17:35 | DRG 872 ==
LOC: ANHED 17:19 → ANHIMU 18:44
PROVIDERS: Internal Medicine; Nurse Practitioner; Admitting Provider Family Medicine; Emergency Provider Emergency Medicine; PCP Family Medicine; Visit Provider Hospitalist
DX: A41.9 Sepsis, unspecified organism (principal); N39.0 Urinary tract infection, site not specified; Z16.24 Resistance to multiple antibiotics; Z20.822 Contact with and (suspected) exposure to COVID-19; B96.89 Other specified bacterial agents as the cause of diseases classified elsewhere; G35 Multiple sclerosis; F17.200 Nicotine dependence, unspecified, uncomplicated; F32.A Depression, unspecified; F41.9 Anxiety disorder, unspecified; Z66 Do not resuscitate; Z74.01 Bed confinement status; Z79.899 Other long term (current) drug therapy
CPT/HCPCS: 36415; 36569; 71045; 73502; 80048; 80053; 81001; 82728; 83605; 83615; 83735; 84100; 84443; 85025; 85610; 85730; 86140; 87040; 87077; 87086; 87186; 87426; 96361; 96365; 96372; 96375; 97110; 97162; 97165; 97530; 99285; A9270; C1751; C9803; G0378; J0131; J0696; J1650; J7030; J7040; J7120

== ENCOUNTER 2022-05-12 11:39 | Emergency (ER) | payer OTHER, SELFPAY ==
[2022-05-12 11:40] VITALS: BP 120/57; PULSE 73; RESP 20; O2SAT 99
--- NOTE | 2022-05-12 12:24 | ED.GENADULT ---
HPI - General Adult General Chief complaint: Unspecified Stated complaint: altered loc after marijuana use Time Seen by Provider: 05/12/22 12:19 History of Present Illness HPI narrative: 56-year-old female with history of MS requiring her to live in a nursing facility here for evaluation of appearing intoxicated. Patient states that she took 4 hits of a THC pen this morning brought in by family member. Staff evaluated patient and found that she was somewhat intoxicated appearing, and sent her to the emergency department. Patient states that she has used marijuana in the past and states that she always feels this way after using it. She denies any headaches, confusion, shortness of breath, cough, further complaints and states that she is at her baseline. Denies other drug use. Related Data Home Medications Medication Instructions Recorded Confirmed fingolimod 0.5 mg capsule ([employer]) 0.5 mg PO DAILY 12/12/21 12/13/21 megestrol 400 mg/10 mL (10 mL) 400 mg PO DAILY 12/12/21 12/13/21 oral suspension mirtazapine 30 mg tablet 30 mg PO HS 12/12/21 12/13/21 Allergies Allergy/AdvReac Type Severity Reaction Status Date / Time codeine Allergy Intermediate SPACED OUT Verified 05/12/22 11:55 guaifenesin Allergy Mild Unknown Verified 05/12/22 11:55 pseudoephedrine Allergy Unknown Unknown Verified 05/12/22 11:55 triprolidine Allergy Unknown Unknown Verified 05/12/22 11:55 peanut Allergy Unknown Verified 05/12/22 11:55 tree nut Allergy Unknown Verified 05/12/22 11:55 Review of Systems Review of Systems: Gen.: Denies fevers or chills Eyes: Denies eye pain or visual change ENT: Denies congestion Respiratory: Denies shortness of breath or cough CV: Denies chest pain or palpitations GI: Denies abdominal pain nausea, emesis or diarrhea denies burning, urgency, frequency or hematuria Musculoskeletal: Denies back pain or muscle pain Neuro: Denies numbness, tingling, weakness or focal weakness Skin: Denies rash Except as documented, all other systems reviewed and negative [facility] Past Medical History Medical History Anxiety Depression Kidney stones Multiple sclerosis Surgical History Surgical History No pertinent past surgical history Family History Family History (System 02/20/22 @ 09:44 by Dale Morrison) Father Dementia Heart disease Other Bipolar disorder maternal aunt Social History Social History (System 02/20/22 @ 09:44 by Dale Morrison) Social History: The patient has 5 children. And lives with her but it sounds like she was supposed to go to a prison today. The patient is typically bed lb and is on disability. 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 Her daughter saira castaneda is her power of attorney at law for healthcare. patient is listed as a current smoker Code status DNR Smoking packs per day: 1 Smoking cigarettes per day: 20.0 Years smoked: 42 Smoking pack-years: 42.00 Smoking status: Current every day smoker Tobacco type: cigarettes Alcohol intake: never Substance use: current Substance use type: marijuana Spiritual care concerns: No Exam Narrative: APPEARANCE: Alert and oriented x4. Well appearing, no pain in distress, well-nourished. Head: Normocephalic and atraumatic. EYES: PERRLA/EOMI, conjunctivae clear NOSE: No nasal drainage EARS: External ear normal in appearance THROAT: Oropharynx is clear. Mucous membranes are moist. NECK: Supple. No adenopathy, no masses. RESPIRATORY: Airway patent, respirations nonlabored. Clear to auscultation bilaterally, no rales, rhonchi, wheezing. CARDIOVASCULAR: Regular rate and rhythm without murmurs, rubs, or gallops. ABDOMINAL: Normoactive bowel sounds. Soft, nontender, nondistended. No rebound tenderness or guarding. MUSCULOSKELETAL: Extremities are warm and well-perfused. Moves all
[2022-05-12 12:49] VITALS: BP 109/64; PULSE 71; RESP 20; O2SAT 99
== END 2022-05-12 13:10 ==
LOC: ANHED 12:35
PROVIDERS: Emergency Provider Emergency Medicine; PCP Family Medicine
DX: G35 Multiple sclerosis (principal); F41.9 Anxiety disorder, unspecified; F32.A Depression, unspecified; Z87.442 Personal history of urinary calculi; Z66 Do not resuscitate; F17.210 Nicotine dependence, cigarettes, uncomplicated
CPT/HCPCS: 99282

== ENCOUNTER 2022-05-21 21:07 | Observation (INO) | payer OTHER, SELFPAY ==
--- NOTE | ~2022-05-21 | CT_ITS ---
EXAMINATION: CTA chest PE protocol DATE: 05/23/2022 15:25 CDT INDICATION: Known DVT. Pulmonary embolism. Covid positive. TECHNIQUE: Computed tomographic angiography (CTA) of the chest was performed with 100 mL Omnipaque-35 0 intravenous contrast. The dose-length product was 264.08 mGy-cm. Maximum intensity projection 3D-re constructions of the aorta and other arteries were constructed by the technologist on a separate work station. COMPARISON: Venous Doppler dated 05/22/[address] abdomen dated 05/21/2022. FINDINGS: There is a 9 mm left lower lobe nodule, image 86. There is dependent atelectasis. No endobr onchial lesions. There is pulmonary embolism involving multiple left lower lobe segmental and subsegm ental pulmonary arteries as well as the right upper lobe segmental and right lower lobe segmental and subsegmental pulmonary arteries. No thoracic lymphadenopathy. No evidence for aortic aneurysm or dis section. Small hiatal hernia. No endobronchial lesions. IMPRESSION: 1. Bilateral pulmonary embolism, moderate thrombus burden. 2: Peripheral nodular density left lower lobe measuring 9 mm which may represent focal atelectasis/in flammatory change, pulmonary infarction or pulmonary nodule. Recommend follow-up CT in 3 months to as sess for resolution. Reviewed, dictated and finalized at location A. IMPRESSION: 1. Bilateral pulmonary embolism, moderate thrombus burden. 2: Peripheral nodular density left lower lobe measuring 9 mm which may represen t focal atelectasis/inflammatory change, pulmonary infarction or pulmonary nodu le. Recommend follow-up CT in 3 months to assess for resolution.
--- NOTE | ~2022-05-21 | US_ITS ---
EXAMINATION: US pelvic complete DATE: 05/23/2022 11:13 INDICATION: Endometrial fluid TECHNIQUE: Multiple transabdominal sonographic images of the pelvis were obtained. COMPARISON: CT dated 05/21/2022 FINDINGS: The uterus measures 6.5 x 4.9 x 3.6 cm. The endometrial complex measures 2-3 mm in thickness on eith er side of a 2.9 x 1.9 x 3.3 cm anechoic endometrial fluid collection yielding a corrected endometria l complex thickness of 4-6 mm which is at the upper limits of normal for postmenopausal state. The ri ght ovary measures 2.1 x 1.9 x 1.9 cm. The left ovary measures 2.0 x 1.6 x 1.2 cm. Vascular flow iden tified in both ovaries on color Doppler. There is no free fluid in the pelvis. Black catheter in the partially decompressed bladder. IMPRESSION: 1. Borderline thickening of the endometrial complex which measures approximate 4-6 mm after subtracti on of an internal 2.9 x 1.9 x 3.3 cm anechoic endometrial fluid collection. No definitive obstructing lesion identified and would recommend KNIFE FINISHER consultation with consideration of hysteroscopy for fur ther evaluation. Reviewed, dictated and finalized at location A. IMPRESSION: 1. Borderline thickening of the endometrial complex which measures approximate 4-6 mm after subtraction of an internal 2.9 x 1.9 x 3.3 cm anechoic endometrial fluid collection. No definitive obstructing lesion identified and would recomm end KNIFE FINISHER consultation with consideration of hysteroscopy for further evaluati on.
--- NOTE | ~2022-05-21 | CT_ITS ---
EXAMINATION: CT abdomen pelvis w con DATE: 05/21/2022 22:44 INDICATION: Lower abdominal pain TECHNIQUE: Computed tomography (CT) of the abdomen and pelvis was performed with 100 CC Omnipaque 300 intravenous contrast. Automated exposure control and iterative reconstruction technique were employe d. Exam dose: 304.55 mGy-cm total exam DLP. COMPARISON: 10/25/2018 CT abdomen pelvis FINDINGS: There is mild bilateral lower lobe dependent discoid atelectasis. Normal heart size. No pericardial or pleural effusion. Incidentally noted are bilateral lower lobe pulmonary emboli. The liver, gallbladder, bile ducts, spleen, pancreas, pancreatic duct, and adrenal glands and kidneys are unremarkable. No urinary tract calculus or hydroureteronephrosis is evident. There is atherosclerotic calcification but normal caliber of the abdominal aorta. No intraperitoneal or retroperitoneal or pelvic mass lesion or adenopathy or ascites. There is a Black catheter within the evacuated urinary bladder. Bladder wall thickness appears promin ent and there is pericystic fat infiltration suggesting cystitis. Recommend correlation with urinalys is. There is prominent fluid distention of the endometrial cavity, measuring up to 2.4 cm AP dimension in the uterine fundus. Gynecologic consult is recommended to exclude endometrial or uterine cervical ne oplasm.. The adnexal areas are unremarkable. No bowel obstruction or intraperitoneal free air is detected. Normal appendix. [place] umbilical hernia containing fat and unobstructed small bowel. IMPRESSION: Bilateral pulmonary emboli Bladder wall thickening and pericystic fat stranding suggesting cystitis Abnormal fluid accumulation in the endometrial cavity measuring up to 2.4 cm AP dimension similar rec [facility] gynecological consult to exclude endometrial or cervical cancer Dr. Fish telephoned the report on 05/21/2022 at 2258 hours to emergency room physician Dr. Alvarez Reviewed, dictated and finalized at [facility]. Reviewed, dictated and finalized at location A. IMPRESSION: Bilateral pulmonary emboli Bladder wall thickening and pericystic fat stranding suggesting cystitis Abnormal fluid accumulation in the endometrial cavity measuring up to 2.4 cm AP dimension similar recommend gynecological consult to exclude endometrial or ce rvical cancer Dr. Fish telephoned the report on 05/21/2022 at 2258 hours to emergency room phys aly Alvarez
--- NOTE | ~2022-05-21 | US_ITS ---
EXAMINATION:US venous doppler LE BI INDICATION:Calf pain TECHNIQUE: Multiple grayscale, color flow and Doppler images of the right and left lower extremity de ep venous systems were obtained and reviewed. COMPARISON:No prior studies for comparison. FINDINGS: The left common femoral, superficial femoral and popliteal veins demonstrate normal respira tory variation, augmentation and compressibility. Color flow is also seen within the posterior tibia l, peroneal, greater saphenous and profunda veins. There is deep venous thrombosis of the right femoral, popliteal and posterior tibial vein. The remain phill of the right lower extremity veins are patent. IMPRESSION: 1: Deep venous thrombosis of the right femoral, popliteal and posterior tibial vein. Reviewed, dictated and finalized at location A.
[2022-05-21 21:11] VITALS: BP 114/58; PULSE 84; RESP 15; TEMP 36.7; O2SAT 95
[2022-05-21 21:18] VITALS: BP 113/53; PULSE 87; RESP 17
[2022-05-21 21:38] LABS: Basophils Percent Auto 0.2 % (0.2-1.2); Eosinophils Absolute Auto 0.1 K/mm3 (0-0.3); Eosinophils Percent Auto 2.4 % (0-4.4); Hematocrit 36.5 % (37.0-47.0); Hemoglobin 11.4 g/dL (12.0-15.0); Immature Granulocyte Absolute 0.09 K/mm3 (0.00-0.031); Immature Granulocyte Percent A 1.9 % (0-0.5); Lymphocytes Absolute Auto 0.83 K/mm3 (0.9-3.2); Lymphocytes Percent Auto 17.9 % (18.3-44.2); Mean Corpuscular HGB Conc 31.2 g/dl (32-36); Mean Corpuscular Volume 89.7 fl (80-100); Mean Platelet Volume 9.5 fl (7.4-10.4); Monocytes Absolute Auto 0.5 K/mm3 (0.1-0.6); Monocytes Percent Auto 9.9 % (2.6-8.5); Neutrophils Absolute Auto 3.1 K/mm3 (1.3-6.7); Neutrophils Percent Auto 67.7 % (45.5-73.1); Platelet Count Result 305 k/mm3 (150-375); Red Blood Count 4.07 M/mm3 (4.2-5.4); Red Cell Distribution Width 16.6 % (11.5-14.5); White Blood Count 4.6 K/mm3 (4.5-10.0)
[2022-05-21 21:51] LABS: Lactic Acid Reflex 1.4 mmol/L (0.7-2.0)
[2022-05-21 21:52] LABS: Alanine Aminotransferase 20 U/L (6-35); Albumin Level 3.7 g/dL (3.5-5.1); Alkaline Phosphatase 204 U/L (38-126); Anion Gap 7 mmol/L (8-16); Aspartate Amino Transferase 29 U/L (14-36); Bilirubin,Total 0.1 mg/dL (0.2-1.3); Blood Urea Nitrogen 18 mg/dL (7-17); Calcium 8.9 mg/dL (8.4-10.2); Carbon Dioxide 24 mmol/L (22-30); Chloride 107 mmol/L (98-107); Estimated Glomerular Filt Rate > 60; Glucose 134 mg/dL (65-110); Lipase 148 U/L (23-300); Sodium 138 mmol/L (137-145)
[2022-05-21 22:14] LABS: Appearance Urine Cloudy (Clear); Bilirubin Urine Negative (Negative); Blood Urine Negative (Negative); Color Urine Yellow (Yellow); Glucose Urine UA Negative (Negative); Ketones Urine Negative (Negative); Leukocyte Esterase Ur 2+ LEU/UL (Negative); Nitrate Urine Positive (Negative); Protein Urine 2+ mg/dL (Negative); Specific Grav Ur 1.015 (1.001-1.035); Urobilinogen Urine 0.2 mg/dL (<2.0); pH Urine 8.5 (5.0-9.0)
[2022-05-21 22:24] LABS: Add Urine Microscopic? YES; Amorphous Sediment Urine Few; Mucus Urine Few /lpf; RBC Urine 21-50 /hpf (0-2); WBC Urine >75 /hpf
[2022-05-21] MEDS: SODIUM CHLORIDE 0.9% IV 1,000 ML 999 ML IV CONT (22:56)
[2022-05-21 23:24] LABS: Prothrombin Time 12.3 Seconds (11.1-14.7)
[2022-05-21 23:25] LABS: Partial Thromboplastin Time 28.2 SECONDS (22.3-36.8)
--- NOTE | 2022-05-21 23:25 | ED.GENADULT ---
HPI - General Adult General Chief complaint: Abdominal Pain Stated complaint: abd pain & botello cath issues Time Seen by Provider: 05/21/22 21:08 Source: RN notes reviewed History of Present Illness HPI narrative: Patient presents emergency department from [facility] via EMS for decreased urine output. Patient has a chronic Botello catheter and per daughter has had decreased urine drainage for the past week. Patient also has been complaining of some lower abdominal pain with this decreased drainage. Patient is unsure when the last time Botello catheter was changed. States she has a history of MS and does not have a current neurologist. She denies any fevers or chills chest pain shortness of breath denies any nausea or vomiting. States that the urine at that has been draining has been dark in color states she does have a history of frequent UTIs as well as kidney stones Related Data Home Medications Medication Instructions Recorded Confirmed fingolimod 0.5 mg capsule ([employer]) 0.5 mg PO DAILY 12/12/21 12/13/21 megestrol 400 mg/10 mL (10 mL) 400 mg PO DAILY 12/12/21 12/13/21 oral suspension mirtazapine 30 mg tablet 30 mg PO HS 12/12/21 12/13/21 Allergies Allergy/AdvReac Type Severity Reaction Status Date / Time codeine Allergy Intermediate SPACED OUT Verified 05/12/22 11:55 guaifenesin Allergy Mild Unknown Verified 05/12/22 11:55 pseudoephedrine Allergy Unknown Unknown Verified 05/12/22 11:55 triprolidine Allergy Unknown Unknown Verified 05/12/22 11:55 peanut Allergy Unknown Verified 05/12/22 11:55 tree nut Allergy Unknown Verified 05/12/22 11:55 Review of Systems Review of Systems: Gen.: Denies fevers or chills ENT: Denies congestion Respiratory: Denies shortness of breath or cough CV: Denies chest pain or palpitations GI: Ports lower abdominal pain denies nausea, emesis or diarrhea see HPI Musculoskeletal: Denies back pain or muscle pain Neuro: Reports chronic weakness from multiple sclerosis Skin: Denies rash Except as documented, all other systems reviewed and negative [facility] Past Medical History Medical History Anxiety Depression Kidney stones Multiple sclerosis Surgical History Surgical History No pertinent past surgical history Family History Family History (System 02/20/22 @ 09:44 by Dale Morrison) Father Dementia Heart disease Other Bipolar disorder maternal aunt Social History Social History Social History: The patient has 5 children. And lives with her but it sounds like she was supposed to go to a mcc today. The patient is typically bed lb and is on disability. 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 Her daughter saira castaneda is her power of accountancy professor for healthcare. patient is listed as a current smoker Code status DNR Smoking packs per day: 1 Smoking cigarettes per day: 20.0 Years smoked: 42 Smoking pack-years: 42.00 Smoking status: Current every day smoker Tobacco type: cigarettes Alcohol intake: never Substance use: current Substance use type: marijuana Spiritual care concerns: No Exam Narrative: APPEARANCE: No acute distress, nontoxic, resting in bed EYES: EOMI HEENT: Normocephalic, atraumatic, OMM RESPIRATORY: No respiratory distress Clear to auscultation bilaterally with no rhonchi wheezing or rales. CARDIOVASCULAR: Regular rate and rhythm without murmurs rubs or gallops. ABDOMINAL: Soft, nondistended tender palpation right lower quadrant left lower quadrant no rebound or guarding : Chronic indwelling Botello catheter present with minimal output MUSCULOSKELETAl: No clubbing, cyanosis or edema. 3+ edema of the right lower extremity dorsalis pedis pulse 2+ 2+ edema of the left lower extremity NEURO: Awake and alert. Following commands, speech normal, chroni
--- NOTE | 2022-05-21 23:51 | PC.NURSE ---
called lab to add on trop 1 baseline for second attempt, talked to Maggie @[id number] - XO
[2022-05-22] VITALS (8 sets, daily range): BP systolic 108–145; BP diastolic 58–76; PULSE 77–94; RESP 16–18; TEMP 36.7–36.8; O2SAT 97–98; BMI 25.0
--- NOTE | 2022-05-22 00:01 | ECG_ITS ---
Measurements Intervals [place] Rate: 78 P: 37 [place]: 133 QRS: 53 QRSD: 88 T: 20 QT: 363 QTc: 415 Interpretive Statements SINUS RHYTHM BORDERLINE ST-T WAVE ABNORMALITY- ANTEROLAT/INF LEADS BORDERLINE ECG Electronically Signed On 05-22-2022 7:49:13 CDT by Wander Ken D.O.
[2022-05-22 00:04] LABS: D Dimer 3.69 ug/mL (<0.48)
[2022-05-22 00:11] LABS: Troponin I < 0.012 ng/mL (0.000-0.034)
[2022-05-22 00:47] LABS: SARS-CoV-2 RNA PCR Positive
[2022-05-22] MEDS: ENOXAPARIN 80 MG/0.8 ML SYRINGE 66 MG SUB-Q (01:18)
--- NOTE | 2022-05-22 01:31 | PC.NURSE ---
0125-Rn called daughter, Lurdes, per pt request to give update about labs, COVID +, and CTA. notified that visitors would not be allowed on the floor. 0126-report called to TRISHA Julien
--- NOTE | 2022-05-22 02:06 | ADMGEN ---
This patient, Corry Canela, was admitted to Medical Room 346-01. Patient/family oriented to hospital policies and general routines including ID bracelet, bed and alarms, visiting hours, pain management, procedures, bathroom and other care routines, personal items, smoking policy, room service/diet, and visiting hours. Information on how to activate the Rapid Response Team has been discussed. Patient/Family are encouraged to report perceived risks to care and to ask questions if they do not understand what they are told or what they should do.
[2022-05-22] MEDS: SODIUM CHLORIDE 0.9% IV 1,000 ML 80 ML IV CONT (03:13)
[2022-05-22] MEDS: ERGOCALCIFEROL 50,000 UNIT CAPSULE 50000 UNITS PO (08:44)
[2022-05-22] MEDS: DOCUSATE SODIUM 100 MG CAPSULE PO ×2 (08:44→21:15)
--- NOTE | 2022-05-22 11:46 | PC.NURSE ---
Spoke with Dr Bailon re: ER consult order for EMPLOYEE OPERATIONS EXAMINER. states he is aware of CT abdm results. He prefers to see patient when she gets out of the hospital.
--- NOTE | 2022-05-22 12:49 | PM.IMHP ---
H&P: HPI History of Present Illness Date/Time: 05/22/22 12:49 Chief Complaint: Abdominal pain, low urine in botello Narrative: Corry Canela is a 56 yo male with history of multiple sclerosis, depression and anxiety. She presented to the ED, from [facility] via EMS, for decreased urine output and abdominal pain for the past week. She has a chronic botello catheter for urinary retention and is unsure when it was last changed. She also reports associated shortness of breath at rest for several weeks. Additionally, she reports c/o BLE swelling, right worse than left, with associated leg pain. Reportedly, she was increased on her lasix due to leg swelling. She is wheelchair bound from her MS. She denies c/o fever, chills, cough sputum, hemoptysis, nausea, vomiting, appetite changes, flank pain, headache, sore throat, loss of taste or smell. In the ED, her vitals were stable and she was afebrile. Lab work is significant for d-dimer 3.69 and UA with 2+ leukocytes, positive nitrites and >75 WBCs. Her CBC and CMP was otherwise unremarkable. CT abd/pelvis was obtained, which demonstrated bilateral PEs, bladder wall thickening, pericystic fat stranding, 2.4 cm fluid collection within the endometrium, and umbilical hernia containing fat and unobstructed small bowel. Her COVID19 PCR test was positive. She reports no known sick contacts or travel, however, she does reside in [facility] as already stated. She has been received the 2-dose COVID19 vaccine, but did not receive a booster due to her MS. She was treated with Rocephin 1 gram IV, 1L NS fluids and Lovenox 1 mg/kg Q12 hours. Review of Systems Review of Systems: All systems reviewed & are unremarkable except as noted in HPI and below PMFSH Past Medical History Medical History Anxiety Depression Kidney stones Multiple sclerosis Surgical History Surgical History No pertinent past surgical history Family History Family History Father Dementia Heart disease Other Bipolar disorder maternal aunt Social History Social History Social History: The patient has 5 children. And lives with her but it sounds like she was supposed to go to a retirement today. The patient is typically bed lb and is on disability. 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 Her daughter saira castaneda is her power of hot dipper for healthcare. patient is listed as a current smoker Code status DNR Smoking packs per day: 1 Smoking cigarettes per day: 20.0 Years smoked: 42 Smoking pack-years: 42.00 Smoking status: Current every day smoker Tobacco type: cigarettes Alcohol intake: never Substance use: never Substance use type: marijuana Spiritual care concerns: No Meds Home Medications and Allergies Home Medications Medication Instructions Recorded Confirmed Type fingolimod 0.5 mg capsule ([employer]) 0.5 mg PO DAILY 12/12/21 05/22/22 History albuterol sulfate 90 mcg/actuation 2 puff inhalation QID PRN 05/22/22 05/22/22 History aerosol inhaler Shortness Of Breath Or Wheezing diphenhydramine HCl 25 mg capsule 25 mg PO TID PRN Itching 05/22/22 05/22/22 History (Benadryl) docusate sodium 100 mg capsule 100 mg PO BID 05/22/22 05/22/22 History (Colace) ergocalciferol (vitamin D2) 1,250 1,250 mcg PO WEEKLY 05/22/22 05/22/22 History mcg (50,000 unit) capsule furosemide 40 mg tablet 40 mg PO DAILY 05/22/22 05/22/22 History meloxicam 15 mg tablet 15 mg PO DAILY 05/22/22 05/22/22 History potassium chloride 10 mEq 10 meq PO DAILY 05/22/22 05/22/22 History capsule,extended release Allergies Allergy/AdvReac Type Severity Reaction Status Date / Time guaifenesin Allergy Mild Unknown Verified 05/12/22 11:55 pseudoephedrine Allergy Unknown Unknown Verifie
[2022-05-22] MEDS: ENOXAPARIN 80 MG/0.8 ML SYRINGE 65 MG SUB-Q (13:57)
--- NOTE | 2022-05-22 20:12 | PC.NURSE ---
called to inquire about pt personal wheelchair. Patients states that wheelchair was transferred here along with her. [facility] was called to verify its location. On staff, TRISHA Torres, confirmed that wheelchair is at the facility in patients room. made aware.
[2022-05-23] VITALS (7 sets, daily range): BP systolic 122–133; BP diastolic 55–68; PULSE 81–93; RESP 16–18; TEMP 35.8–36.6; O2SAT 16–96
[2022-05-23] MEDS: ENOXAPARIN 80 MG/0.8 ML SYRINGE 65 MG SUB-Q ×2 (01:26→13:25)
[2022-05-23 05:59] LABS: Basophils Percent Auto 0.3 % (0.2-1.2); Eosinophils Percent Auto 0.3 % (0-4.4); Hematocrit 35.7 % (37.0-47.0); Hemoglobin 11.7 g/dL (12.0-15.0); Immature Granulocyte Absolute 0.06 K/mm3 (0.00-0.031); Immature Granulocyte Percent A 0.9 % (0-0.5); Lymphocytes Absolute Auto 0.82 K/mm3 (0.9-3.2); Mean Corpuscular HGB Conc 32.8 g/dl (32-36); Mean Corpuscular Hemoglobin 28.3 pg (26-34); Mean Corpuscular Volume 86.4 fl (80-100); Mean Platelet Volume 9.4 fl (7.4-10.4); Monocytes Absolute Auto 0.5 K/mm3 (0.1-0.6); Neutrophils Absolute Auto 5.4 K/mm3 (1.3-6.7); Neutrophils Percent Auto 79.5 % (45.5-73.1); Platelet Count Result 321 k/mm3 (150-375); Red Blood Count 4.13 M/mm3 (4.2-5.4); Red Cell Distribution Width 16.2 % (11.5-14.5); White Blood Count 6.8 K/mm3 (4.5-10.0)
[2022-05-23 06:18] LABS: Anion Gap 7 mmol/L (8-16); Blood Urea Nitrogen 8 mg/dL (7-17); CRP 1.2 mg/dL (<1.0); Calcium 9.1 mg/dL (8.4-10.2); Carbon Dioxide 22 mmol/L (22-30); Chloride 107 mmol/L (98-107); Estimated CRCL calculation 81 ml/min; Estimated Glomerular Filt Rate > 60; Glucose 117 mg/dL (65-110); Potassium 4.1 mmol/L (3.4-5.0); Sodium 136 mmol/L (137-145)
[2022-05-23 09:57] LABS: Carcinoembryonic Antigen 2.5 ng/mL (0.0-3.0)
--- NOTE | 2022-05-23 10:14 | PM.IMPN ---
Progress Note: A&P Assessment and Plan (1) Pulmonary embolism: Code(s): I26.99 - Other pulmonary embolism without acute cor pulmonale Status: Acute Assessment and Plan: Bilateral PEs noted on CT scan, Patient is immobile and COVID19+. Continue therapeutic lovenox 1 mg/kg BID Transition to DOAC prior to discharge. She will likely need long-term therapy given bilateral PEs and immobility. Care coordination consulted for Xarelto pricing. Patient is from [facility], but reports she plans to go home at some point. LE venous doppler with DVT R femoral, popliteal and posterior tibialis Monitor H/H and platelets. CTA chest for PEs- moderate thrombus burden with segmental & subsegmental LLL, RUL segmental, and RLL segmental and subsegmental pulmonary arteries. Incidental 9 mm LLL peripheral nodule noted. Repeat CT in 3 months recommended. (2) COVID-19: Code(s): U07.1 - COVID-19 Status: Acute Assessment and Plan: COVID19 PCR+. H/O of prior vaccine administration but no booster. She c/o shortness of breath but this is more likely secondary to PEs. No supplemental O2 needs at this time. Place in COVID19 isolation precautions. Monitor respiratory status. No indication for Remdesivir and systemic steroids since she has adequate O2 sats on room air at this time On Rocephin for UTI. No COVID19 specific antibiotics needed at this time. (3) UTI (urinary tract infection): Qualifiers: Encounter type: initial encounter Indwelling urinary catheter type: indwelling urethral catheter Urinary tract infection type: catheter-associated UTI Qualified Code(s): T83.511A - Infection and inflammatory reaction due to indwelling urethral catheter, initial encounter; N39.0 - Urinary tract infection, site not specified Code(s): N39.0 - Urinary tract infection, site not specified Status: Acute Assessment and Plan: UA +nitrites, 2+ leukocytes and >75 WBC. She has a chronic botello catheter with c/o lower abdominal pain on ED presentation. Continue Rocephin 1 gram IV Q24 hours. Day 3 of antibiotics Transition to oral antibiotics pending urine culture results. She will need 10-14 days of abx for complicated UTI (4) Fluid in endometrial cavity: Code(s): N85.9 - Noninflammatory disorder of uterus, unspecified Status: Acute Assessment and Plan: Noted on CT scan. OBGYN consulted and reports will see outpatient for further evaluation. No vaginal bleeding or abnormal discharge. LMP in 40s . She has not had a pelvic exam since that time. Check CEA, CA-125 and Pelvic US shows endometrial thickening 4-6 mm. Patient needs OBGYN follow up. (5) Multiple sclerosis: Code(s): G35 - Multiple sclerosis Status: Chronic Assessment and Plan: Continue Gilenya at home dose. We discussed establishing a relationship with a Neurologist to assist with management. Wheelchair bound. Fall precautions. Plan Disposition: Return to SNF Estimated LOS: 2 days CODE STATUS: DNR/DNI Time Spent With Patient Time with patient: 15 - 25 minutes Subjective Date/time seen: 05/23/22 10:14 Patient found sitting up in bed. She denies c/o shortness of breath, hemoptysis, chest pain, palpitations or LE paresthesia. SpO2 stable on room air. Review of Systems Review of Systems: All systems reviewed & are unremarkable except as noted in HPI and below Exam Narrative: General: No acute distress.? Frail adult female sitting up in bed. Mental Status/Psych: Awake, alert and oriented to person and place with clear speech. Neutral mood and flat affect. Pleasant and cooperate. Skin: Fair, warm, dry and intact without rashes or lesions. No open wounds. Fair turgor.? HEENT: Normocephalic. Conjunctivae are clear. Sclera is non-icteric. EOM intact. PERRL. Grossly normal hearing. Oral mucosa pink and dry. Tongue midline. Oropharynx within normal limi
[2022-05-23] MEDS: SODIUM CHLORIDE 0.9% IV 1,000 ML 80 ML IV CONT (10:18)
[2022-05-23] MEDS: DOCUSATE SODIUM 100 MG CAPSULE PO (21:18)
[2022-05-24] VITALS: PULSE 89
[2022-05-24] MEDS: RIVAROXABAN 15 MG TABLET PO ×2 (00:51→09:13)
[2022-05-24 04:00] VITALS: PULSE 77
[2022-05-24 05:25] VITALS: BP 113/48; PULSE 82; RESP 20; TEMP 36.8; O2SAT 96
[2022-05-24 06:00] LABS: Basophils Percent Auto 0.3 % (0.2-1.2); Eosinophils Absolute Auto 0.1 K/mm3 (0-0.3); Hematocrit 38.2 % (37.0-47.0); Immature Granulocyte Absolute 0.05 K/mm3 (0.00-0.031); Immature Granulocyte Percent A 0.8 % (0-0.5); Lymphocytes Absolute Auto 1.15 K/mm3 (0.9-3.2); Lymphocytes Percent Auto 18.7 % (18.3-44.2); Mean Corpuscular HGB Conc 31.4 g/dl (32-36); Mean Corpuscular Hemoglobin 28.5 pg (26-34); Mean Corpuscular Volume 90.7 fl (80-100); Mean Platelet Volume 9.1 fl (7.4-10.4); Monocytes Absolute Auto 0.5 K/mm3 (0.1-0.6); Monocytes Percent Auto 8.6 % (2.6-8.5); Neutrophils Absolute Auto 4.4 K/mm3 (1.3-6.7); Neutrophils Percent Auto 70.6 % (45.5-73.1); Platelet Count Result 308 k/mm3 (150-375); Red Blood Count 4.21 M/mm3 (4.2-5.4); Red Cell Distribution Width 16.4 % (11.5-14.5); White Blood Count 6.2 K/mm3 (4.5-10.0)
[2022-05-24 06:11] LABS: Anion Gap 5 mmol/L (8-16); Blood Urea Nitrogen 9 mg/dL (7-17); Calcium 9.1 mg/dL (8.4-10.2); Carbon Dioxide 25 mmol/L (22-30); Chloride 107 mmol/L (98-107); Estimated CRCL calculation 60 ml/min; Estimated Glomerular Filt Rate > 60; Glucose 101 mg/dL (65-110); Potassium 4.1 mmol/L (3.4-5.0); Sodium 137 mmol/L (137-145)
[2022-05-24 08:05] VITALS: PULSE 80
[2022-05-24] MEDS: DOCUSATE SODIUM 100 MG CAPSULE PO (09:13)
[2022-05-24] MEDS: SACCHAROMYCES BOULARDII 250 MG CAPSULE PO (09:13)
[2022-05-24] MEDS: CEFDINIR 300 MG CAPSULE PO (09:13)
--- NOTE | 2022-05-24 10:55 | PM.DS ---
DS: Admitting Diagnosis Discharge Date 05/24/2022 1307 Admitting Diagnosis Bilateral pulmonary embolism COVID19 positive Acute cystitis Endometrial fluid DS: Discharge Diagnosis Discharge Diagnosis (1) Pulmonary embolism: Code(s): I26.99 - Other pulmonary embolism without acute cor pulmonale Status: Acute Assessment and Plan: Bilateral PEs noted on CT scan, Patient is immobile and COVID19+. Treated with lovenox 1 mg/kg BID starting 05/21/22. Transitioned to Xarelto 15 mg BID x 21 days on 05/24/22. Start Xarelto 15 mg with supper following previous dosing on 06/13/22. LE venous doppler with DVT R femoral, popliteal and posterior tibialis CTA chest for PEs- moderate thrombus burden with segmental & subsegmental LLL, RUL segmental, and RLL segmental and subsegmental pulmonary arteries. Incidental 9 mm LLL peripheral nodule noted. Repeat CT in 3 months recommended. No s/s acute bleeding. SpO2>90% on room air. (2) COVID-19: Code(s): U07.1 - COVID-19 Status: Acute Assessment and Plan: COVID19 PCR+. H/O of prior vaccine administration but no booster. She c/o shortness of breath but this is more likely secondary to PEs. No supplemental O2 needs at this time. Place in COVID19 isolation precautions. No indication for Remdesivir systemic steroids, or antibiotics (3) UTI (urinary tract infection): Qualifiers: Encounter type: initial encounter Indwelling urinary catheter type: indwelling urethral catheter Urinary tract infection type: catheter-associated UTI Qualified Code(s): T83.511A - Infection and inflammatory reaction due to indwelling urethral catheter, initial encounter; N39.0 - Urinary tract infection, site not specified Code(s): N39.0 - Urinary tract infection, site not specified Status: Acute Assessment and Plan: UA +nitrites, 2+ leukocytes and >75 WBC. She has a chronic botello catheter with c/o lower abdominal pain on ED presentation. Botello catheter was changed with immediate return of urine. Old catheter reportedly incorrectly placed, incorrectly labeled (labeled 30Fr, but was actually 10Fr) and required good pericare. CT abdomen & pelvis shows bladder wall thickening and concerning for cystitis. Started on Rocephin 1 gram IV Q24 hours on 05/21/22 -05/23/22, transitioned to cefdinir 300 mg BID on 05/24/22 to complete 10 day course (stop 05/30/22) for complicated UTI. (4) Fluid in endometrial cavity: Code(s): N85.9 - Noninflammatory disorder of uterus, unspecified Status: Acute Assessment and Plan: Noted on CT scan 2.4 cm AP dimension in the uterine fundus. Pelvic US shows 2.9 x 1.9 x 3.3 cm anechoic endometrial fluid collection with corrected endometrial complex thickness 4-6 mm. OBGYN consulted and will see outpatient for further evaluation. No vaginal bleeding or abnormal discharge. CEA 2.5, CA-125 pending Outpatient OBGYN follow up. Daughter will call Wednesday for appointment. (5) Multiple sclerosis: Code(s): G35 - Multiple sclerosis Status: Chronic Assessment and Plan: Continue Gilenya at home dose. No reported drug interaction with Xarelto. Wheelchair bound. DS: Summary Hospital Course Reason for hospitalization: Low urine output Hospital Course: Corry Canela is a 56 yo male with history of multiple sclerosis, depression and anxiety. She presented to the ED, from [facility] via EMS, for decreased urine output and abdominal pain for one week prior to admission. She has a chronic botello catheter for urinary retention and is unsure when it was last changed. Of note, it was changed in the ED on 05/21/22. She also reports associated shortness of breath at rest for several weeks. Additionally, she reports c/o BLE swelling, right worse than left, with associated leg pain. Reportedly, she was increased on her lasix due to leg swelling. She is wheelchair bound from her MS. She denies c/o fever, c
[2022-05-24 12:04] VITALS: PULSE 95
[2022-05-24 14:00] VITALS: BP 105/36; PULSE 92; RESP 18; TEMP 35.7; O2SAT 97
[2022-05-26 03:20] LABS: CA-125 14 U/mL (<35)
== END 2022-05-24 16:25 ==
LOC: ANHED 05-22 01:19 → ANH3MED 05-22 01:54
PROVIDERS: Nurse Practitioner Family; Admitting Provider Internal Medicine; Emergency Provider Emergency Medicine; PCP Family Medicine; Visit Provider Internal Medicine
DX: U07.1 COVID-19 (principal); T83.511A Infection and inflammatory reaction due to indwelling urethral catheter, initial encounter; Y84.6 Urinary catheterization as the cause of abnormal reaction of the patient, or of later complication, without mention of misadventure at the time of the procedure; N39.0 Urinary tract infection, site not specified; I26.99 Other pulmonary embolism without acute cor pulmonale; I82.411 Acute embolism and thrombosis of right femoral vein; I82.431 Acute embolism and thrombosis of right popliteal vein; I82.441 Acute embolism and thrombosis of right tibial vein; N85.9 Noninflammatory disorder of uterus, unspecified; R06.02 Shortness of breath; G35 Multiple sclerosis; F32.A Depression, unspecified; F41.9 Anxiety disorder, unspecified; F17.210 Nicotine dependence, cigarettes, uncomplicated; F12.90 Cannabis use, unspecified, uncomplicated
CPT/HCPCS: 36415; 71275; 74177; 76856; 80048; 80053; 81001; 82378; 83605; 83690; 84484; 85025; 85380; 85610; 85730; 86140; 86304; 87077; 87086; 87186; 93005; 93970; 96361; 96365; 96366; 96372; 96376; 99285; A9270; C9803; G0378; J0696; J1650; J7030; Q9967; U0003; U0005

== ENCOUNTER 2022-09-15 23:46 | Observation (INO) | payer OTHER, SELFPAY ==
--- NOTE | ~2022-09-15 | XR_ITS ---
EXAMINATION: XR chest 2V DATE: 09/16/2022 00:19 INDICATION: Weakness. TECHNIQUE: Frontal and lateral views of the chest were obtained. COMPARISON: Chest single view 12/12/2021, chest CT 05/23/2022 FINDINGS: There is no pneumonia, pleural effusion, or pneumothorax. The heart size is normal. IMPRESSION: 1. No acute cardiopulmonary disease. Reviewed, dictated and finalized at location A.
[2022-09-15 23:49] VITALS: BP 102/59; PULSE 95; RESP 14; TEMP 36.4; O2SAT 98
--- NOTE | 2022-09-15 23:49 | ECG_ITS ---
Measurements Intervals [place] Rate: 93 P: 83 MA: 147 QRS: 52 QRSD: 89 T: 243 QT: 369 QTc: 460 Interpretive Statements SINUS RHYTHM ST-T WAVE ABNORMALITY IN ANTEROLAT/INF LEADS- CONSIDER ISCHEMIA BASELINE ARTIFACT- I, II, III, AVR, AVL, AVF ABNORMAL ECG COMPARED TO ECG 05/22/2022 00:01:09 ST-T WAVE ABNORMALITY IN ANTEROLAT/INF LEADS- CONSIDER ISCHEMIA NOW PRESENT Electronically Signed On 09-16-2022 6:53:50 CDT by Wander Ken D.O.
[2022-09-16] VITALS (24 sets, daily range): BP systolic 96–118; BP diastolic 41–72; PULSE 76–92; RESP 12–22; TEMP 36.1–36.9; O2SAT 94–100; BMI 24.3
[2022-09-16 00:05] LABS: Basophils Percent Auto 0.2 % (0.2-1.2); Eosinophils Percent Auto 0.6 % (0-4.4); Hemoglobin 13.1 g/dL (12.0-15.0); Immature Granulocyte Absolute 0.02 K/mm3 (0.00-0.031); Immature Granulocyte Percent A 0.3 % (0-0.5); Lymphocytes Absolute Auto 0.68 K/mm3 (0.9-3.2); Lymphocytes Percent Auto 10.4 % (18.3-44.2); Mean Corpuscular Hemoglobin 27.2 pg (26-34); Mean Corpuscular Volume 85.1 fl (80-100); Mean Platelet Volume 9.6 fl (7.4-10.4); Monocytes Absolute Auto 0.6 K/mm3 (0.1-0.6); Monocytes Percent Auto 8.4 % (2.6-8.5); Neutrophils Absolute Auto 5.2 K/mm3 (1.3-6.7); Neutrophils Percent Auto 80.1 % (45.5-73.1); Platelet Count Result 380 k/mm3 (150-375); Red Blood Count 4.82 M/mm3 (4.2-5.4); White Blood Count 6.5 K/mm3 (4.5-10.0)
[2022-09-16 00:31] LABS: Alanine Aminotransferase 47 U/L (6-35); Albumin Level 4.4 g/dL (3.5-5.1); Alkaline Phosphatase 309 U/L (38-126); Anion Gap 14 mmol/L (8-16); Aspartate Amino Transferase 63 U/L (14-36); Bilirubin,Total 0.6 mg/dL (0.2-1.3); Blood Urea Nitrogen 24 mg/dL (7-17); Calcium 9.6 mg/dL (8.4-10.2); Carbon Dioxide 37 mmol/L (22-30); Chloride 86 mmol/L (98-107); Estimated Glomerular Filt Rate > 60; Glucose 120 mg/dL (65-110); Potassium 2.3 mmol/L (3.4-5.0); Sodium 137 mmol/L (137-145)
[2022-09-16] MEDS: POTASSIUM CHLORIDE INJ 40 MEQ in SODIUM CHLORIDE 0.9% IV 500 ML 130 MEQ IVPB ×2 (01:00→10:58)
[2022-09-16] MEDS: POTASSIUM CHLORIDE 20 MEQ TABLET 40 MEQ PO ×2 (01:00→18:44)
--- NOTE | 2022-09-16 01:18 | ED.RECABL ---
HPI - Recheck/Abnormal Lab/Rx General Chief Complaint: Recheck/Abnormal Lab/Rx Stated Complaint: abd normal labs Time Seen by Provider: 09/16/22 00:42 History of Present Illness HPI narrative: Patient is a 56-year-old female who presents ER with abnormal outpatient labs. Is found patient was hypokalemic. Recheck your shows potassium of 2.3. Patient is supposed to be on potassium replacement at home and also takes Lasix. She denies any muscle weakness or cramping. No loss of consciousness or falls. No additional concerns. Related Data Home Medications Medication Instructions Recorded Confirmed fingolimod 0.5 mg capsule ([employer]) 0.5 mg PO DAILY 12/12/21 09/16/22 albuterol sulfate 90 mcg/actuation 2 puff inhalation QID PRN 05/22/22 09/16/22 aerosol inhaler Shortness Of Breath Or Wheezing diphenhydramine HCl 25 mg capsule 25 mg PO TID PRN Itching 05/22/22 09/16/22 (Benadryl) docusate sodium 100 mg capsule 100 mg PO BID 05/22/22 09/16/22 (Colace) ergocalciferol (vitamin D2) 1,250 1,250 mcg PO WEEKLY 05/22/22 09/16/22 mcg (50,000 unit) capsule furosemide 40 mg tablet 40 mg PO DAILY 05/22/22 09/16/22 potassium chloride 10 mEq 20 meq PO DAILY 05/22/22 09/16/22 capsule,extended release metolazone 2.5 mg tablet 2.5 mg PO DAILY 09/16/22 09/16/22 Allergies Allergy/AdvReac Type Severity Reaction Status Date / Time guaifenesin Allergy Mild Unknown Verified 05/12/22 11:55 pseudoephedrine Allergy Unknown Unknown Verified 05/12/22 11:55 triprolidine Allergy Unknown Unknown Verified 05/12/22 11:55 peanut Allergy Unknown Verified 05/12/22 11:55 tree nut Allergy Unknown Verified 05/12/22 11:55 codeine AdvReac Intermediate SPACED OUT Verified 05/22/22 02:38 Review of Systems Review of Systems: ROS unobtainable: Yes unobtainable due to mental status Constitutional: Constitutional: Denies chills and Denies fever(s) Cardiovascular: Cardiovascular: Denies chest pain and Denies rapid heart rate Respiratory: Respiratory: Denies cough, Denies dyspnea and Denies wheezing Gastrointestinal: Gastrointestinal: Denies abdominal pain, Denies nausea and Denies vomiting PMFSH Past Medical History Medical History Anxiety Depression Kidney stones Multiple sclerosis Surgical History Surgical History No pertinent past surgical history Family History Family History Father Dementia Heart disease Other Bipolar disorder maternal aunt Social History Social History Social History: The patient has 5 children. And lives with her but it sounds like she was supposed to go to a custodial today. The patient is typically bed lb and is on disability. 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 Her daughter saira castaneda is her power of sports attorney for healthcare. patient is listed as a current smoker Code status DNR Smoking packs per day: 1 Smoking cigarettes per day: 20.0 Years smoked: 42 Smoking pack-years: 42.00 Smoking status: Former smoker Tobacco type: cigarettes Alcohol intake: never Substance use: former Substance use type: marijuana Has the Lack of Transportation Kept You From Medical Appointments or From Getting Medications?: No Within the Past 12 Months, Were You Worried Whether Your Food Would Run Out Before You Got Money to Buy More?: Never True What is Your Housing Situation Today?: I Have Housing Are You Worried That in the Next 2 Months, You May Not Have Your Own Housing to Live In?: No Do You Have Trouble Paying Your Heating Or Electricity Bill?: No Do You Have Trouble Paying For Medicines?: No Are You Currently Unemployed and Looking for Work?: No Highest Level of Education Completed: High School Diploma/GED Do You Have Trouble With Childcare
--- NOTE | 2022-09-16 03:07 | PC.NURSE ---
Assumed pt care from TRISHA Meyers
[2022-09-16 03:16] LABS: Add Urine Microscopic? YES; Appearance Urine Slightly Cloudy (Clear); Bilirubin Urine Negative (Negative); Blood Urine Trace-intact (Negative); Color Urine Yellow (Yellow); Glucose Urine UA Negative (Negative); Ketones Urine Negative (Negative); Leukocyte Esterase Ur 2+ LEU/UL (Negative); Nitrate Urine Positive (Negative); Protein Urine Negative (Negative); Urobilinogen Urine 0.2 mg/dL (<2.0); pH Urine 6.5 (5.0-9.0)
[2022-09-16 03:29] LABS: Mucus Urine Rare /lpf; Squamous Epithelial Cell Urine Many /hpf (Few); WBC Urine >75 /hpf
--- NOTE | 2022-09-16 04:09 | PM.IMHP ---
H&P: HPI History of Present Illness Date/Time: 09/16/22 04:09 Chief Complaint: ABNORMAL LAB WORK Narrative: This is a 56-year-old female with past medical history significant for anxiety, depression, MS. patient resides at assisted living facility she was brought to the emergency room after she had abnormal lab work with a low potassium level. Patient denies any nausea, vomiting, diarrhea, abdominal pain, chest pain, shortness of breath, leg swelling, fevers, rigors, chills. States that she has been in her usual state of health, no dizziness, no lightheadedness, no syncope, no near syncope. preliminary workup was significant for a repeat potassium level at 2.3 chloride 86 bicarb 37. patient received KCl in the emergency room she has been admitted for further evaluation management and treatment. EKG was reported as: SINUS RHYTHM ST DEVIATION AND MODERATE T-WAVE ABNORMALITY, CONSIDER ANTEROLATERAL ISCHEMIA [-0.1+ mV T WAVE IN V3-V6] ST DEVIATION AND MODERATE T-WAVE ABNORMALITY, CONSIDER INFERIOR ISCHEMIA [-0.1+ mV T WAVE IN II/aVF] COMPARED TO ECG 05/22/2022 00:01:09 NO SIGNIFICANT CHANGES Review of Systems Review of Systems: abnormal lab work. Constitutional: Constitutional: Denies chills, Denies fatigue, Denies fever(s), Denies malaise, Denies poor appetite and Denies weakness Eyes: Eyes: Denies change in vision ENT: Denies dysphagia, Denies vertigo, Denies dizziness and Denies odynophagia Cardiovascular: Cardiovascular: Denies chest pain, Denies irregular heart rhythm, Denies leg ulcers, Denies leg edema, Denies lightheadedness and Denies palpitations Respiratory: Respiratory: Denies chest congestion and Denies cough Gastrointestinal: Gastrointestinal: Denies abdominal pain, Denies dyspepsia, Denies heartburn, Denies diarrhea, Denies nausea and Denies vomiting Genitourinary: Genitourinary: Denies dysuria Musculoskeletal: Musculoskeletal: Denies joint swelling Integumentary/Breasts: Skin/Breast: Denies rash Neurologic: Denies focal weakness and Denies Sensory deficit (Neuro) Psychiatric: Psychiatric: Reports no additional psychiatric complaints and Reports as per HPI Endocrine: Endocrine: Denies cold intolerance, Denies flushing, Denies heat intolerance, Denies polyphagia, Denies polydipsia and Denies palpitations Hematologic/Lymphatic: Hematologic/Lymphatic: Reports no additional hematologic/lymphatic complaints and Reports as per HPI Allergic/Immunologic: Allergic/Immunologic: Reports no additional allergic/immunologic complaints and Reports as per HPI PMFSH Past Medical History Medical History Anxiety Depression Kidney stones Multiple sclerosis Surgical History Surgical History No pertinent past surgical history Family History Family History Father Dementia Heart disease Other Bipolar disorder maternal aunt Social History Social History Social History: The patient has 5 children. And lives with her but it sounds like she was supposed to go to a fpc today. The patient is typically bed lb and is on disability. 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 Her daughter saira castaneda is her power of personal injury attorney for healthcare. patient is listed as a current smoker Code status DNR Smoking packs per day: 1 Smoking cigarettes per day: 20.0 Years smoked: 42 Smoking pack-years: 42.00 Smoking status: Former smoker Tobacco type: cigarettes Alcohol intake: never Substance use: former Substance use type: marijuana Has the Lack of Transportation Kept You From Medical Appointments or From Getting Medications?: No Within the Past 12 Months, Were You Worried Whether Your Food Would Run Out Before You Got Money to Buy More?: Never True What is
[2022-09-16 04:17] LABS: SARS-CoV-2 RNA PCR Negative
[2022-09-16 06:01] LABS: Anion Gap 15 mmol/L (8-16); Blood Urea Nitrogen 20 mg/dL (7-17); Calcium 9.3 mg/dL (8.4-10.2); Carbon Dioxide 36 mmol/L (22-30); Chloride 90 mmol/L (98-107); Estimated CRCL calculation 60 ml/min; Estimated Glomerular Filt Rate > 60; Glucose 135 mg/dL (65-110); Potassium 2.9 mmol/L (3.4-5.0); Sodium 141 mmol/L (137-145)
--- NOTE | 2022-09-16 13:16 | PM.IMPN ---
Progress Note: A&P Assessment and Plan (1) Acute hypokalemia: Code(s): E87.6 - Hypokalemia Status: Acute Assessment and Plan: replace as needed holding Lasix holding metolazone continue to monitor (2) Multiple sclerosis: Code(s): G35 - Multiple sclerosis Status: Chronic Assessment and Plan: appears to be in remission continue to monitor (3) UTI (urinary tract infection): Code(s): N39.0 - Urinary tract infection, site not specified Status: Acute Assessment and Plan: continue ceftriaxone cultures in progress Subjective Date/time seen: 09/16/22 13:16 Interval history: This is a 56-year-old female with past medical history significant for anxiety, depression,? MS. patient resides at assisted living facility she was brought to the emergency room after she had abnormal lab work with a low potassium level.? Patient denies any nausea, vomiting, diarrhea, abdominal pain, chest pain, shortness of breath, leg swelling, fevers, rigors, chills.? States that she has been in her usual state of health, no dizziness, no lightheadedness, no syncope, no near syncope. preliminary workup was significant for a repeat potassium level at 2.3 chloride 86 bicarb 37. patient received KCl in the emergency room she has been admitted for further evaluation management and treatment. ? EKG was reported as: SINUS RHYTHM ST DEVIATION AND MODERATE T-WAVE ABNORMALITY, CONSIDER ANTEROLATERAL ISCHEMIA [-0.1+ mV T WAVE IN V3-V6] ST DEVIATION AND MODERATE T-WAVE ABNORMALITY, CONSIDER INFERIOR ISCHEMIA [-0.1+ mV T WAVE IN II/aVF] COMPARED TO ECG 05/22/2022 00:01:09 NO SIGNIFICANT CHANGES 09/16/2022: NO NEW COMPALINTS. NO FEVER, CHILLS. SOB, CEHST PAIN. SHE DENIES ANY URINARY SYMPTOMS. Review of Systems Review of Systems: All systems reviewed & are unremarkable except as noted in HPI and below Exam Narrative: GENERAL: Chronically ill-appearing, well-nourished, and in no acute distress. HEAD: Normocephalic, atraumatic. EYES: PERRL and EOMI. CHEST: Clear to auscultation.? No respiratory distress. HEART: Regular rate and rhythm.? Normal peripheral pulses. ABDOMEN: Soft, nontender, nondistended. EXTREMITIES: Normal range of motion.? No edema. SKIN: Warm, dry, no rash. NEURO: Alert and oriented X3, lower extermity weakness PSYCH: Normal mood and affect. Objective Data Vital Signs Vital Signs: Vital Signs - 24 hr 09/15/22 23:49 09/16/22 00:53 09/16/22 01:30 Temperature 97.6 F Pulse Rate 95 85 80 Respiratory Rate 14 22 H 13 Blood Pressure 102/59 L 96/58 L Pulse Oximetry 98 99 100 Oxygen Delivery Room Air Room Air 09/16/22 01:31 09/16/22 01:45 09/16/22 01:46 Temperature Pulse Rate 80 81 82 Respiratory Rate 14 12 13 Blood Pressure 112/67 118/68 Pulse Oximetry 100 100 100 Oxygen Delivery 09/16/22 02:00 09/16/22 02:01 09/16/22 02:15 Temperature Pulse Rate 81 79 79 Respiratory Rate 14 14 14 Blood Pressure 104/50 L Pulse Oximetry Oxygen Delivery 09/16/22 02:16 09/16/22 02:30 09/16/22 02:31 Temperature 98.3 F Pulse Rate 79 85 81 Respiratory Rate 13 14 13 Blood Pressure 104/55 L 105/59 L Pulse Oximetry 100 Oxygen Delivery 09/16/22 03:01 09/16/22 03:16 09/16/22 03:29 Temperature Pulse Rate 80 76 77 Respiratory Rate 13 13 12 Blood Pressure 107/41 L 105/46 L 105/46 L Pulse Oximetry Oxygen Delivery 09/16/22 04:03 09/16/22 03:55 09/16/22 04:00 Temperature 97.8 F Pulse Rate 80 79 Respiratory Rate 16 Blood Pressure 110/68 Pulse Oximetry 99 Oxygen Delivery Room Air 09/16/22 08:00 09/16/22 10:42 Temperature 96.9 F L Pulse Rate 87 Respiratory Rate 14 Blood Pressure 98/70 L Pulse Oximetry 100 Oxygen Delivery Room Air Intake/Output Intake/Output: Intake & Output 09/13/22 09/14/22 09/15/22 09/16/22 23:59 23:59 23:59 23:59 Intake Total 1010 Output Total 100 Balance 910 Meds/Res
--- NOTE | 2022-09-16 13:24 | PC.NURSE ---
On 09/16/22, the student, [Areli Ruano], provided care and completed [facility] documentation on this patient. I have reviewed the student's documentation and agree with the findings.
[2022-09-16 17:42] LABS: Potassium 3.2 mmol/L (3.4-5.0)
[2022-09-16] MEDS: diphenhydrAMINE HCl CAP 25 MG CAPSULE PO (22:38)
[2022-09-17] VITALS (11 sets, daily range): BP systolic 95–112; BP diastolic 44–72; PULSE 68–79; RESP 12–18; TEMP 35.8–36.6; O2SAT 97–100
[2022-09-17 06:06] LABS: Basophils Percent Auto 0.2 % (0.2-1.2); Eosinophils Percent Auto 0.5 % (0-4.4); Hematocrit 37.6 % (37.0-47.0); Hemoglobin 11.6 g/dL (12.0-15.0); Immature Granulocyte Absolute 0.03 K/mm3 (0.00-0.031); Immature Granulocyte Percent A 0.7 % (0-0.5); Lymphocytes Absolute Auto 0.78 K/mm3 (0.9-3.2); Lymphocytes Percent Auto 18.8 % (18.3-44.2); Mean Corpuscular HGB Conc 30.9 g/dl (32-36); Mean Corpuscular Hemoglobin 26.7 pg (26-34); Mean Corpuscular Volume 86.4 fl (80-100); Mean Platelet Volume 10.1 fl (7.4-10.4); Monocytes Absolute Auto 0.5 K/mm3 (0.1-0.6); Monocytes Percent Auto 11.4 % (2.6-8.5); Neutrophils Absolute Auto 2.8 K/mm3 (1.3-6.7); Neutrophils Percent Auto 68.4 % (45.5-73.1); Platelet Count Result 306 k/mm3 (150-375); Red Blood Count 4.35 M/mm3 (4.2-5.4); Red Cell Distribution Width 15.1 % (11.5-14.5); White Blood Count 4.1 K/mm3 (4.5-10.0)
[2022-09-17 06:16] LABS: Alanine Aminotransferase 34 U/L (6-35); Albumin Level 3.8 g/dL (3.5-5.1); Alkaline Phosphatase 242 U/L (38-126); Anion Gap 7 mmol/L (8-16); Aspartate Amino Transferase 39 U/L (14-36); Bilirubin,Total 0.3 mg/dL (0.2-1.3); Blood Urea Nitrogen 16 mg/dL (7-17); Carbon Dioxide 33 mmol/L (22-30); Chloride 98 mmol/L (98-107); Estimated CRCL calculation 69 ml/min; Estimated Glomerular Filt Rate > 60; Glucose 105 mg/dL (65-110); Magnesium 1.9 mg/dL (1.6-2.3); Potassium 3.7 mmol/L (3.4-5.0); Sodium 138 mmol/L (137-145)
[2022-09-17] MEDS: ENOXAPARIN 40 MG/0.4 ML SYRINGE SUB-Q (09:39)
--- NOTE | 2022-09-17 13:12 | PM.IMPN ---
Progress Note: A&P Assessment and Plan (1) Acute hypokalemia: Code(s): E87.6 - Hypokalemia Status: Acute Assessment and Plan: replace as needed holding Lasix holding metolazone continue to monitor Potassium normalized today (2) Multiple sclerosis: Code(s): G35 - Multiple sclerosis Status: Chronic Assessment and Plan: On treatment continue to monitor (3) UTI (urinary tract infection): Code(s): N39.0 - Urinary tract infection, site not specified Status: Acute Assessment and Plan: continue ceftriaxone discussed with microbiology. Urine culture is growing Gram-negative bacilli 100,000 colonies. Not identified yet that and have since to be back until tomorrow. Continue ceftriaxone and await the sensitivity for discharge planning Subjective Date/time seen: 09/17/22 13:12 Interval history: This is a 56-year-old female with past medical history significant for anxiety, depression,? MS. patient resides at assisted living facility she was brought to the emergency room after she had abnormal lab work with a low potassium level.? Patient denies any nausea, vomiting, diarrhea, abdominal pain, chest pain, shortness of breath, leg swelling, fevers, rigors, chills.? States that she has been in her usual state of health, no dizziness, no lightheadedness, no syncope, no near syncope. preliminary workup was significant for a repeat potassium level at 2.3 chloride 86 bicarb 37. patient received KCl in the emergency room she has been admitted for further evaluation management and treatment. ? EKG was reported as: SINUS RHYTHM ST DEVIATION AND MODERATE T-WAVE ABNORMALITY, CONSIDER ANTEROLATERAL ISCHEMIA [-0.1+ mV T WAVE IN V3-V6] ST DEVIATION AND MODERATE T-WAVE ABNORMALITY, CONSIDER INFERIOR ISCHEMIA [-0.1+ mV T WAVE IN II/aVF] COMPARED TO ECG 05/22/2022 00:01:09 NO SIGNIFICANT CHANGES 09/16/2022: NO NEW COMPALINTS. NO FEVER, CHILLS. SOB, CEHST PAIN. SHE DENIES ANY URINARY SYMPTOMS. 09/17/2022: No overnight events. Wants to go back home. Denies any chest pain or shortness of breath. Denies any abdominal pain nausea vomiting or diarrhea. Review of Systems Review of Systems: All systems reviewed & are unremarkable except as noted in HPI and below Exam Narrative: GENERAL: Chronically ill-appearing, well-nourished, and in no acute distress. HEAD: Normocephalic, atraumatic. EYES: PERRL and EOMI. CHEST: Clear to auscultation.? No respiratory distress. HEART: Regular rate and rhythm.? Normal peripheral pulses. ABDOMEN: Soft, nontender, nondistended. EXTREMITIES: Normal range of motion.? No edema. SKIN: Warm, dry, no rash. NEURO: Alert and oriented X3, lower extermity weakness PSYCH: Normal mood and affect. Objective Data Vital Signs Vital Signs: Vital Signs - 24 hr 09/16/22 13:20 09/16/22 15:34 09/16/22 16:00 Temperature 97.1 F L Pulse Rate 92 92 Respiratory Rate 14 Blood Pressure 104/72 Pulse Oximetry 100 94 Oxygen Delivery Room Air 09/16/22 18:30 09/16/22 20:00 09/16/22 20:30 Temperature 97.7 F 98.5 F Pulse Rate 92 87 Respiratory Rate 16 16 Blood Pressure 103/51 L 104/45 L Pulse Oximetry 99 97 Oxygen Delivery Room Air 09/16/22 20:00 09/17/22 00:00 09/17/22 04:00 Temperature Pulse Rate 88 76 68 Respiratory Rate Blood Pressure Pulse Oximetry Oxygen Delivery 09/17/22 05:42 09/17/22 09:30 09/17/22 10:54 Temperature 97.8 F Pulse Rate 71 Respiratory Rate 12 Blood Pressure 95/44 L Pulse Oximetry 97 Oxygen Delivery Room Air Room Air 09/17/22 08:00 Temperature Pulse Rate 71 Respiratory Rate Blood Pressure Pulse Oximetry Oxygen Delivery Intake/Output Intake/Output: Intake & Output 09/14/22 09/15/22 09/16/22 09/17/22 23:59 23:59 23:59 23:59 Intake Total 1250 830 Output Total 100 Balance 1150 830 Meds/Results Medications: Active Medications Generic Name Dose Rout
--- NOTE | 2022-09-17 14:49 | PC.NURSE ---
On 09/17/22, the student, [Marly Love], provided care and completed [facility] documentation on this patient. I have reviewed the student's documentation and agree with the findings.
[2022-09-17] MEDS: diphenhydrAMINE HCl CAP 25 MG CAPSULE PO (20:55)
[2022-09-18] VITALS (7 sets, daily range): BP systolic 102–111; BP diastolic 48–56; PULSE 68–84; RESP 16–18; TEMP 36–36.6; O2SAT 97–100
[2022-09-18 05:49] LABS: Basophils Percent Auto 0.2 % (0.2-1.2); Eosinophils Absolute Auto 0.1 K/mm3 (0-0.3); Hematocrit 37.5 % (37.0-47.0); Hemoglobin 11.9 g/dL (12.0-15.0); Immature Granulocyte Absolute 0.04 K/mm3 (0.00-0.031); Immature Granulocyte Percent A 0.8 % (0-0.5); Mean Corpuscular HGB Conc 31.7 g/dl (32-36); Mean Corpuscular Hemoglobin 26.7 pg (26-34); Mean Corpuscular Volume 84.1 fl (80-100); Mean Platelet Volume 9.7 fl (7.4-10.4); Monocytes Absolute Auto 0.5 K/mm3 (0.1-0.6); Monocytes Percent Auto 9.2 % (2.6-8.5); Neutrophils Absolute Auto 3.6 K/mm3 (1.3-6.7); Neutrophils Percent Auto 70.8 % (45.5-73.1); Platelet Count Result 322 k/mm3 (150-375); Red Blood Count 4.46 M/mm3 (4.2-5.4); Red Cell Distribution Width 14.8 % (11.5-14.5)
[2022-09-18 06:02] LABS: Alanine Aminotransferase 33 U/L (6-35); Albumin Level 3.9 g/dL (3.5-5.1); Alkaline Phosphatase 236 U/L (38-126); Anion Gap 14 mmol/L (8-16); Aspartate Amino Transferase 39 U/L (14-36); Bilirubin,Total 0.2 mg/dL (0.2-1.3); Blood Urea Nitrogen 11 mg/dL (7-17); Calcium 8.8 mg/dL (8.4-10.2); Carbon Dioxide 27 mmol/L (22-30); Chloride 95 mmol/L (98-107); Estimated CRCL calculation 81 ml/min; Estimated Glomerular Filt Rate > 60; Glucose 112 mg/dL (65-110); Magnesium 1.9 mg/dL (1.6-2.3); Potassium 3.7 mmol/L (3.4-5.0); Sodium 136 mmol/L (137-145)
[2022-09-18] MEDS: ENOXAPARIN 40 MG/0.4 ML SYRINGE SUB-Q (08:25)
[2022-09-18] MEDS: ERTAPENEM SODIUM 0.5 GM in SODIUM CHLORIDE 0.9% IV 50 ML IVPB (11:46)
[2022-09-18 13:13] LABS: EDCOVIDSCREEN Negative (Negative)
--- NOTE | 2022-09-18 13:15 | PC.NURSE ---
On 09/18/22, the student, [Marly Love], provided care and completed [facility] documentation on this patient. I have reviewed the student's documentation and agree with the findings.
--- NOTE | 2022-09-18 14:10 | PM.DS ---
DS: Admitting Diagnosis Discharge Date 09/18/2022 Admitting Diagnosis hypokalemia DS: Discharge Diagnosis Discharge Diagnosis (1) Acute hypokalemia: Code(s): E87.6 - Hypokalemia Status: Acute (2) Multiple sclerosis: Code(s): G35 - Multiple sclerosis Status: Chronic (3) UTI (urinary tract infection): Code(s): N39.0 - Urinary tract infection, site not specified Status: Acute DS: Summary Hospital Course Hospital Course: # acute hypokalemia: ?replace as needed ?holding Lasix And metolazone. Upon speaking with the daughter looks like she has been on this medication since the diagnosis of DVT for her leg swelling. ? Potassium normalized with replacement and holding Lasix and metolazone without requiring any supplementation. Hold Lasix metolazone at discharge as leg swelling likely related to venous insufficiency then volume overload. Compression stockings ordered for discharge # multiple sclerosis: ? On treatment ?continue to monitor # urinary tract infection: Initially treated with ceftriaxone. Urine culture grew Gram-negative bacilli 100,000 colonies. It came back as E coli ESBL. Will switch to Bactrim which sensitive for 7 days course. 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 Unsure if it was stopped. Order rate at discharge further management on Xarelto per PCP Time Spent with Patient Time attestation: Total time spent providing and/or coordinating discharge services: 45 minutes Exam Narrative: GENERAL: Chronically ill-appearing, well-nourished, and in no acute distress. HEAD: Normocephalic, atraumatic. EYES: PERRL and EOMI. CHEST: Clear to auscultation.? No respiratory distress. HEART: Regular rate and rhythm.? Normal peripheral pulses. ABDOMEN: Soft, nontender, nondistended. EXTREMITIES: Normal range of motion.? No edema. SKIN: Warm, dry, no rash. NEURO: Alert and oriented X3, lower extermity weakness PSYCH: Normal mood and affect. DS: Data Data Completed and Pending Labs on day of discharge: Labs from last 24 hours 09/18/22 09/18/22 09/18/22 12:54 05:23 05:23 WBC 5.0 RBC 4.46 Hgb 11.9 L Hct 37.5 MCV 84.1 MCH 26.7 MCHC 31.7 L RDW 14.8 H Plt Count 322 MPV 9.7 Immature Gran % (Auto) 0.8 H Neut % (Auto) 70.8 Lymph % (Auto) 18.0 L Nye % (Auto) 9.2 H Eos % (Auto) 1.0 Baso % (Auto) 0.2 Lymph # (Auto) 0.90 Nye # (Auto) 0.5 Eos # (Auto) 0.1 Baso # (Auto) 0.0 Abs Immat Gran (auto) 0.04 H Absolute Neuts (auto) 3.6 Absolute Nucleated RBC 0.0 Nucleated RBC % 0.0 Sodium 136 L Potassium 3.7 Chloride 95 L Carbon Dioxide 27 Anion Gap 14 BUN 11 D Creatinine 0.50 L Estim Creat Clear Calc 81 Estimated GFR > 60 Glucose 112 H Calcium 8.8 Magnesium 1.9 Total Bilirubin 0.2 AST 39 H ALT 33 Alkaline Phosphatase 236 H Total Protein 7.0 Albumin 3.9 SARS-CoV-2 IgG/IgM Ag?Rapid Negative Imaging Radiologist's impression: ITS Impressions Chest X-Ray 09/16/22 06:52 IMPRESSION: 1. No acute cardiopulmonary disease. Discharge Plan Discharge Attending physician on discharge: Bari Badillo Discharging Clinician: Bari Badillo Anticipated Discharge Date/Time: 09/18/22 11:49 Patient Disposition[facility] Activity: as tolerated Diet: regular Discharge Instructions: compression socks bilateral lower extremities knee high/thigh high please verify if she is supposed to be on xarelto. fu with PCP in 1 week. call for appointment Patient Instructions: Antibiotic Form Stand Alone Forms: General Discharge Information, Fdc Discharge Follow-up/Referrals: Jose,MD Ajith [Primary Care Provider] - 1 Week Discharge Medications: New sulfamethoxazole-trimethoprim [Faraz
--- NOTE | 2022-10-14 13:42 | PC.NURSE ---
LATE ENTRY This note is being entered to document information to the patient's record. The following information was omitted on [09/16/22], by [Dr. Reeves]. OSMAN for straight cath for urine collection.
== END 2022-09-18 19:17 ==
LOC: ANHED 09-16 02:16 → ANH2MED 09-16 03:03
PROVIDERS: Admitting Provider Internal Medicine; Emergency Provider Emergency Medicine; PCP Internal Medicine; Visit Provider Internal Medicine
DX: E87.6 Hypokalemia (principal); G35 Multiple sclerosis; N39.0 Urinary tract infection, site not specified; B96.29 Other Escherichia coli [E. coli] as the cause of diseases classified elsewhere; F41.9 Anxiety disorder, unspecified; F32.A Depression, unspecified; Z20.822 Contact with and (suspected) exposure to COVID-19; R94.31 Abnormal electrocardiogram [ECG] [EKG]; Z96.0 Presence of urogenital implants; Z79.1 Long term (current) use of non-steroidal anti-inflammatories (NSAID); Z79.51 Long term (current) use of inhaled steroids; Z79.899 Other long term (current) drug therapy; Z87.442 Personal history of urinary calculi; Z87.891 Personal history of nicotine dependence
CPT/HCPCS: 36415; 51701; 71046; 80048; 80053; 81001; 83735; 84132; 85025; 87077; 87086; 87186; 87426; 93005; 96365; 96366; 96367; 96368; 96372; 96376; 99285; A9270; C9803; G0378; J0696; J1335; J1650; J3480; J7040; U0003; U0005

== ENCOUNTER 2024-03-31 19:37 | Emergency (ER) | payer OTHER, SELFPAY ==
[2024-03-31] VITALS (16 sets, daily range): BP systolic 95–132; BP diastolic 45–81; PULSE 72–98; RESP 12–20; TEMP 36.8; O2SAT 93–97
--- NOTE | ~2024-03-31 | XR_ITS ---
EXAMINATION: XR chest 1V portable DATE: 03/31/2024 19:51 INDICATION: Fever. TECHNIQUE: A single frontal view of the chest was obtained. COMPARISON: Chest 2 views 09/16/2022 FINDINGS: There is mild atelectasis at left lung base. No pleural effusion or pneumothorax. The heart size is normal. IMPRESSION: 1. Mild atelectasis at left lung base. Reviewed, dictated and finalized at location E.
--- NOTE | 2024-03-31 19:42 | ED.FEVER ---
HPI - Fever General Chief Complaint: Fever <Ann Guevara MD - Last Filed: 03/31/24 22:03> Stated Complaint: fever, general weakness <Ann Guevara MD - Last Filed: 03/31/24 22:03> Time Seen by Provider: 03/31/24 19:40 <Ann Guevara MD - Last Filed: 03/31/24 22:03> Source: patient and EMS <Ann Guevara MD - Last Filed: 03/31/24 22:03> Mode of arrival: EMS <Ann Guevara MD - Last Filed: 03/31/24 22:03> Limitations: clinical condition <Ann Guevara MD - Last Filed: 03/31/24 22:03> History of Present Illness HPI Narrative: 58 YEARS OLD WHITE FEMALE WHO HISTORY WAS MS, CAME BY AMBULANCE FROM [facility] WITH HEAD AND NASAL CONGESTION STARTED YESTERDAY, TODAY RUNNING FEVER. PATIENT RECEIVED TYLENOL 2 HOURS PRIOR TO ARRIVAL TO THE EMERGENCY ROOM. PATIENT IS ASYMPTOMATIC SHE DENIES ANY NASAL CONGESTION, COUGHING, SNEEZING, SORE THROAT, ABDOMINAL PAIN, CHEST PAIN, SHORTNESS OF BREATH OR BACK PAIN. PATIENT STARTED COUGHING DURING MY EXAMINATION, SHE REPORTED THAT BEEN COUGHING LIKE THIS OFTEN ON FOR YEARS FOR NO SPECIFIC REASON. <Ann Guevara MD - Last Filed: 03/31/24 22:03> Related Data Home Medications: Home Medications Medication Instructions Recorded Confirmed fingolimod 0.5 mg capsule (Gilenya) 0.5 mg PO DAILY 12/12/21 09/16/22 albuterol sulfate 90 mcg/actuation 2 puff inhalation QID PRN 05/22/22 09/16/22 aerosol inhaler Shortness Of Breath Or Wheezing diphenhydramine HCl 25 mg capsule 25 mg PO TID PRN Itching 05/22/22 09/16/22 (Benadryl) docusate sodium 100 mg capsule 100 mg PO BID 05/22/22 09/16/22 (Colace) ergocalciferol (vitamin D2) 1,250 1,250 mcg PO WEEKLY 05/22/22 09/16/22 mcg (50,000 unit) capsule <Ann Guevara MD - Last Filed: 03/31/24 22:03> Allergies/Adverse Reactions: Allergies Allergy/AdvReac Type Severity Reaction Status Date / Time guaifenesin Allergy Mild Unknown Verified 05/12/22 11:55 pseudoephedrine Allergy Unknown Unknown Verified 05/12/22 11:55 triprolidine Allergy Unknown Unknown Verified 05/12/22 11:55 peanut Allergy Unknown Verified 05/12/22 11:55 tree nut Allergy Unknown Verified 05/12/22 11:55 codeine AdvReac Intermediate SPACED OUT Verified 05/22/22 02:38 <Ann Guevara MD - Last Filed: 03/31/24 22:03> Review of Systems Review of Systems: All systems reviewed & are unremarkable except as noted in HPI and below <Ann Guevara MD - Last Filed: 03/31/24 22:03> PMFSH Past Medical History Medical History: Medical History Anxiety Depression Kidney stones Multiple sclerosis <Ann Guevara MD - Last Filed: 03/31/24 22:03> Surgical History Surgical History: Surgical History No pertinent past surgical history <Ann Guevara MD - Last Filed: 03/31/24 22:03> Family History Family History: Family History Father Dementia Heart disease Other Bipolar disorder maternal aunt <Ann Guevara MD - Last Filed: 03/31/24 22:03> Social History Social History: Social History Social History: The patient has 5 children. And lives with her but it sounds like she was supposed to go to a detention today. The patient is typically bed lb and is on disability. 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 Her daughter saira castaneda is her power of real estate associate attorney for healthcare. patient is listed as a current smoker Code status DNR Smoking packs per day: 1 Smoking cigarettes per day: 20.0 Years smoked: 42 Smoking pack-years: 42.00 Smoking status: Former smoker Tobacco type: cigarettes Alcohol intake: never Substance use: former Substance use type: marijuana Lack of Transportation: No Lack of Food: Never True Current Housing: I Have Housing Concerned Abou
[2024-03-31] MEDS: SODIUM CHLORIDE 0.9% IV 1,000 ML 999 ML IV CONT (19:46)
[2024-03-31 20:41] LABS: Eosinophils Percent Auto 0.3 % (0-4.4); Hemoglobin 11.2 g/dL (12.0-15.0); Immature Granulocyte Absolute 0.02 K/mm3 (0.00-0.031); Immature Granulocyte Percent A 0.6 % (0-0.5); Lymphocytes Absolute Auto 0.28 K/mm3 (0.9-3.2); Lymphocytes Percent Auto 8.5 % (18.3-44.2); Mean Corpuscular HGB Conc 31.1 g/dl (32-36); Mean Corpuscular Hemoglobin 26.1 pg (26-34); Mean Corpuscular Volume 83.9 fl (80-100); Mean Platelet Volume 9.5 fl (7.4-10.4); Monocytes Absolute Auto 0.4 K/mm3 (0.1-0.6); Monocytes Percent Auto 11.8 % (2.6-8.5); Neutrophils Absolute Auto 2.6 K/mm3 (1.3-6.7); Neutrophils Percent Auto 78.8 % (45.5-73.1); Platelet Count Result 257 k/mm3 (150-375); Red Blood Count 4.29 M/mm3 (4.2-5.4); Red Cell Distribution Width 14.8 % (11.5-14.5); White Blood Count 3.3 K/mm3 (4.5-10.0)
[2024-03-31 20:51] LABS: INR 2.5; Prothrombin Time 28.9 Seconds (11.1-14.7)
[2024-03-31 20:52] LABS: Lactic Acid Reflex 0.7 mmol/L (0.7-2.0)
[2024-03-31 20:52] LABS: Partial Thromboplastin Time 61.8 Seconds (22.3-36.8)
[2024-03-31 20:53] LABS: Alanine Aminotransferase 21 U/L (6-35); Alkaline Phosphatase 283 U/L (38-126); Anion Gap 7 mmol/L (4-12); Aspartate Amino Transferase 34 U/L (14-36); Bilirubin,Total 0.6 mg/dL (0.2-1.3); Blood Urea Nitrogen 11 mg/dL (7-17); CRP 4.2 mg/dL (<1.0); Calcium 8.8 mg/dL (8.4-10.2); Carbon Dioxide 22 mmol/L (22-30); Chloride 105 mmol/L (98-107); Estimated CRCL calculation 67 ml/min; Estimated Glomerular Filt Rate > 60; Glucose 106 mg/dL (65-110); Sodium 134 mmol/L (137-145)
[2024-03-31 21:23] LABS: Influenza A QL RT-PCR Negative (Negative); Influenza B QL RT-PCR Negative (Negative); RSV RNA, RT-PCR Negative (Negative); SARS-CoV-2 RNA PCR Negative (Negative)
[2024-03-31 23:32] LABS: Appearance Urine Turbid (Clear); Bacteria Urine 4+ /hpf; Bilirubin Urine Negative (Negative); Blood Urine 2+ (Negative); Color Urine Yellow (Yellow); Glucose Urine UA Negative (Negative); Ketones Urine Negative (Negative); Leukocyte Esterase Ur 3+ LEU/UL (Negative); Need Manual Microscopic Reviewed; Nitrate Urine Positive (Negative); Protein Urine 1+ mg/dL (Negative); Specific Grav Ur 1.014 (1.001-1.035); Squamous Epithelial Cell Urine Occasional /hpf (Few); Urobilinogen Urine 0.2 mg/dL (<2.0); WBC Urine >100 /hpf (0-3); pH Urine 5.5 (5.0-9.0)
[2024-03-31 23:33] LABS: Add Urine Microscopic? YES
[2024-04-01 00:02] VITALS: BP 112/54; PULSE 72; RESP 14; O2SAT 97
[2024-04-01 00:17] VITALS: BP 112/53; PULSE 72; RESP 14; TEMP 37.3; O2SAT 97
[2024-04-01 00:47] VITALS: BP 113/49; PULSE 73; RESP 16; O2SAT 97
== END 2024-04-01 00:59 ==
PROVIDERS: Emergency Provider Emergency Medicine; PCP Internal Medicine
DX: N39.0 Urinary tract infection, site not specified (principal); F41.8 Other specified anxiety disorders; G35 Multiple sclerosis; Z87.891 Personal history of nicotine dependence
CPT/HCPCS: 36415; 71045; 80053; 81001; 83605; 85025; 85610; 85730; 86140; 87040; 87077; 87086; 87088; 87186; 87637; 96361; 96365; 99284; J0696; J7030

== ENCOUNTER 2024-05-08 08:29 | Inpatient (IN) | payer OTHER, SELFPAY ==
[2024-05-08] VITALS (82 sets, daily range): BP systolic 48–156; BP diastolic 18–94; PULSE 105–148; RESP 14–31; TEMP 34.6–38; O2SAT 85–100
--- NOTE | 2024-05-08 | ECHO_ITS ---
Patient Info Name: Corry Canela Age: 58 years : 1965 Gender: Female Ht: 60 in Wt: 157 lbs BSA: 1.76 m2 HR: 111 bpm BP: 91 / 43 mmHg Heart Rhythm: Tachycardia Technical Quality: Fair Exam Date: 05/08/2024 2:58 PM Exam Location: Echo Lab Patient Status: Inpatient Admit Date: 05/08/2024 Staff Ordering Physician: Cullen Herzog MD Rn First Assistant: Billie Chung RDCS Attending Provider: Ernesto Arias MD Exam Type: CA echo doppler color flow Study Info Indications - Cardiac arrest Complete two-dimensional, color flow and Doppler transthoracic echocardiogram is performed. Summary 1. Complete two-dimensional, color flow and Doppler transthoracic echocardiogram is performed. 2. Normal left and right ventricular size and systolic function. 3. Mild tricuspid insufficiency velocities indicate estimated RV systolic pressure of 42 mmHg. 4. No significant valvular dysfunction. Left Ventricle Left ventricular chamber dimension is normal. Left ventricular systolic function is normal, estimated at 65-70%. The left ventricular diastolic function is grade I diastolic dysfunction. Right Ventricle Right ventricular chamber dimension is normal. Left Atria Left atrial chamber dimension is normal. Right Atria Right atrial chamber dimension is normal. Aortic Valve The aortic valve is normal. Pulmonic Valve The pulmonic valve is normal. Mitral Valve The mitral valve has normal leaflets. Tricuspid Valve The tricuspid valve leaflets are normal. There is mild tricuspid valve regurgitation. Mild pulmonary hypertension, estimated pulmonary arterial systolic pressure is 43 mmHg. Pericardium/Pleural The pericardium appears normal. Aorta The prox ascending aorta size is normal. Left Ventricular Outflow Tract Name Value Normal LVOT 2D LVOT Diameter 2.0 cm LVOT Doppler LVOT Peak Gradient 3 mmHg LVOT Mean Gradient 2 mmHg LVOT VTI 14 cm LVOT VTI/AV VTI Ratio 0.6 LVOT Stroke Volume 41 ml LVOT CO 4.4 l/min LVOT CI 2.5 l/min/m2 Pulmonic Valve Name Value Normal RVOT Doppler RVOT Peak Gradient 1 mmHg PV Doppler PV Peak Gradient 5 mmHg Mitral Valve Name Value Normal MV Doppler MV Decel Cotton 552 cm/s2 MV PHT 38 ms MV Area (PHT) 5.8 cm2 4.0-5.0 MV Diastolic Function --------
--- NOTE | ~2024-05-08 | XR_ITS ---
EXAMINATION: XR chest ET placement DATE: 05/08/2024 10:47 INDICATION: Intubation. TECHNIQUE: A single frontal view of the chest was obtained. COMPARISON: Chest single view 03/31/2024 FINDINGS: There is a diffuse reticulonodular pattern in the lungs. No pleural effusion or pneumothora x. The heart size is normal. The endotracheal tube tip is 4.7 cm above the mayda. The nasogastric tu be tip is beyond the inferior margin of the radiograph, but at least to the stomach. IMPRESSION: 1. Diffuse reticulonodular pattern in the lungs, consistent with pneumonia. Reviewed, dictated and finalized at location A.
--- NOTE | ~2024-05-08 | XR_ITS ---
Portable chest x-ray Comparison: 05/09/2024 Clinical History: Respiratory failure Findings: Endotracheal tube and NG tube are in satisfactory use. Extensive hazy pulmonary disease bi laterally is significantly worsened from prior exam. Probable small left pleural effusion and left lo wer lobe atelectatic change. Minimal right pleural effusion. Cardiomediastinal silhouette is stable. Bones and soft tissues are unremarkable. Impression: Significant worsening bilateral airspace disease is compatible with worsening pulmonary edema, with m inimal pleural effusions and left lower lobe atelectatic change. Support tubes, as above. Reviewed, dictated and finalized at location M. Impression: Significant worsening bilateral airspace disease is compatible with worsening p ulmonary edema, with minimal pleural effusions and left lower lobe atelectatic change. Support tubes, as above.
--- NOTE | ~2024-05-08 | CT_ITS ---
EXAMINATION: CTA chest PE abdomen pel DATE: 05/08/2024 10:34 INDICATION: Respiratory distress. Cardiac arrest. Cardiopulmonary resuscitation. TECHNIQUE: Computed tomography angiography (CTA) of the chest was performed with 75 mL Omnipaque-350 intravenous contrast timed to evaluate the pulmonary arteries. Coronal maximum intensity projection 3 D-reconstructions were created by the technologist. Computed tomography (CT) of the abdomen and pelvi s was performed with intravenous contrast. Automated exposure control and iterative reconstruction te chnique were employed. The dose-length product was 1204.51 mGy-cm. COMPARISON: Chest CT 05/23/2022 FINDINGS: CTA chest: The lungs demonstrate dependent airspace opacities. There are tree-in-bud opacities and ce ntrilobular nodules in all lobes with a posterior lung predominance. No pleural effusion. The heart s ize is normal. No pericardial effusion. There is mild bilateral hilar lymphadenopathy, likely reactiv e. There is no pulmonary embolus. There are fractures of right fourth and fifth ribs anteriorly. Ther e are fractures of left fourth and fifth ribs anteriorly. There is mild thoracic spondylosis. The end otracheal tube tip is in expected position. CT abdomen and pelvis: The liver, gallbladder, spleen, pancreas, adrenal glands, and kidneys are norm al. A Balck catheter is in the vagina. The appendix is normal. There are no dilated loops of bowel. T here are no pathologically enlarged lymph nodes. There is no free intraperitoneal fluid. There is mil d lumbar spondylosis. The nasogastric tube tip is in the stomach. IMPRESSION: 1. No pulmonary embolus. 2. Widespread bilateral pneumonia. 3. Fractures of the bilateral fourth and fifth ribs. 4. Black catheter in abnormal position in the vagina. Reviewed, dictated and finalized at location A.
--- NOTE | ~2024-05-08 | CT_ITS ---
EXAMINATION: CT brain wo con DATE: 05/08/2024 10:31 INDICATION: Cardiac arrest. TECHNIQUE: Computed tomography (CT) of the head was performed without intravenous contrast. The mA wa s adjusted according to patient size. Iterative reconstruction technique was employed. The dose-lengt h product was 681.00 mGy-cm. COMPARISON: Head CT 01/02/2019 FINDINGS: There is brain volume loss. There are scattered areas of low attenuation in the cerebral wh ite matter. There is no intracranial hemorrhage, acute infarction, or abnormal intracranial mass lesi on. The ventricles are normal in size. There is mucosal thickening in the paranasal sinuses. The mast oid air cells are normal. IMPRESSION: 1. Stable moderate nonspecific cerebral white matter disease, which likely represents chronic small v essel ischemic disease. Reviewed, dictated and finalized at location A. IMPRESSION: 1. Stable moderate nonspecific cerebral white matter disease, which likely repr esents chronic small vessel ischemic disease.
--- NOTE | ~2024-05-08 | XR_ITS ---
Portable chest x-ray Comparison: 05/08/2024 Clinical History: Respiratory failure Findings: Endotracheal tube and NG tube are in place. There is hazy right basilar airspace disease. Cardiomediastinal silhouette is stable. Bones and soft tissues are unremarkable. Impression: Hazy right basilar airspace disease. Correlate for pneumonia. Support tubes, as above. Reviewed, dictated and finalized at location . Impression: Hazy right basilar airspace disease. Correlate for pneumonia. Support tubes, as above.
--- NOTE | ~2024-05-08 | CT_ITS ---
EXAMINATION: CT chest abdomen pelvis wo con DATE: 05/09/2024 08:55 INDICATION: Lactic acidosis TECHNIQUE: Computed tomography (CT) of the chest, abdomen, and pelvis was performed without intraveno us contrast. Automated exposure control and iterative reconstruction technique were employed. The dos e-length product was 996.90 mGy-cm. COMPARISON: 05/08/2024 FINDINGS: CHEST CT: Endotracheal tube tip 1.3 cm above the mayda. There is narrowing of the more caudal trachea and main stem bronchi with concave posterior margins likely related to expiratory phase of imaging. Groundglas s and tree-in-bud opacities along side more dependent consolidation in the bilateral lower lobes and with mild patchy dependent consolidation the bilateral upper lobes consistent with pneumonia. No defi nitive pleural effusion. Heart size is normal. No pericardial effusion. Thoracic aorta is normal in c aliber. No pathologically enlarged thoracic lymphadenopathy. Moderate thoracic spondylosis. ABDOMEN/PELVIS CT: Nasogastric tube tip in the distal body the stomach. There is contrast enhancement of the bilateral k idneys with excreted contrast in the bilateral renal collecting systems, ureters and in the bladder r elated to contrast enhanced study from one day prior which suggests renal insufficiency. There is new moderate bilateral perinephric stranding. Heterogeneous increased density within the dilated gallbla dder without pericholecystic inflammatory stranding which suggests presence of underlying gallbladder sludge or cholelithiasis. Liver, spleen, pancreas and bilateral adrenal glands are normal. 1.6 x 1.1 cm rim calcified aneurysm along the splenic artery. Bowels including the appendix are normal. No abn ormal bowel wall thickening or obstruction. Black catheter within the partially decompressed contrast containing bladder. The uterus and bilateral adnexa are unremarkable. No free intraperitoneal gas or fluid. No pathologically enlarged abdominal or pelvic lymphadenopathy. Mild degenerative skeletal ch anges in the lumbar spine and pelvis. IMPRESSION: 1. Consolidation groundglass and tree-in-bud opacities in the bilateral dependent lungs persist with endobronchial spread of disease most likely either pneumonia or aspiration. 2. Bilateral renal nephrograms with significant residual intravenous contrast from contrast enhanced CT from over 22 hours prior suggesting renal insufficiency. There is also new moderate nonspecific bi lateral perinephric stranding. 3. Heterogeneous pattern of vicariously excreted contrast in the otherwise normal-appearing gallbladd er suggesting underlying gallbladder sludge or gallstones. 4. 1.6 x 1.1 cm rim calcified splenic artery aneurysm. Reviewed, dictated and finalized at location B. IMPRESSION: 1. Consolidation groundglass and tree-in-bud opacities in the bilateral depende nt lungs persist with endobronchial spread of disease most likely either pneumo rosaura or aspiration. 2. Bilateral renal nephrograms with significant residual intravenous contrast f rom contrast enhanced CT from over 22 hours prior suggesting renal insufficienc y. There is also new moderate nonspecific bilateral perinephric stranding. 3. Heterogeneous pattern of vicariously excreted contrast in the otherwise norm al-appearing gallbladder suggesting underlying gallbladder sludge or gallstones . 4. 1.6 x 1.1 cm rim calcified splenic artery aneurysm.
--- NOTE | ~2024-05-08 | XR_ITS ---
EXAMINATION: XR abdomen gastric tube insert DATE: 05/08/2024 10:47 INDICATION: Nasogastric tube placement. TECHNIQUE: A supine view of the abdomen was obtained. COMPARISON: None. FINDINGS: The lower abdomen is excluded. There are no dilated loops of bowel. The nasogastric tube ti p is in the stomach. IMPRESSION: 1. Nasogastric tube tip in the stomach. Reviewed, dictated and finalized at location A.
--- NOTE | ~2024-05-08 | CT_ITS ---
EXAMINATION: CT brain wo con DATE: 05/09/2024 08:55 INDICATION: Altered mental status TECHNIQUE: Computed tomography (CT) of the head was performed without intravenous contrast. Sagittal and coronal reconstructions were performed. The mA was adjusted according to patient size. Iterative reconstruction technique was employed. The dose-length product was 681.00 mGy-cm. COMPARISON: head CT dated 05/08/2024 FINDINGS: There is increased density along the dura and increased density within the temporal bones of the left and right lateral ventricles,. Interpretation of which is compensated by residual intravenous contra st from the contrast enhanced CT one day prior with contrast enhancement clearly seen at the bilatera l kidneys on the immediately subsequent CT of the chest, abdomen or pelvis. Favor that much of this i s related to contrast. There is however a region of increased density along the right side of the ten torium where there is now increased density but increased thickening which is more suspicious for sub dural hemorrhage. In addition there are few foci of increased density along the gyri in the right tem poral occipital region suspicious for subarachnoid hemorrhage. There is diffuse cerebral edema with e ffacement of the previously diffusely mildly enlarged sulci as well as some decrease in size of the p reviously diffuse mildly enlarged ventricles. There is effacement of the basal cisterns as well as br ainstem herniation with effacement of the CSF at the foramen magnum and level of the ring of C1. Ther e is mild decrease in the degree of walters-white matter differentiation in the bilateral anterior front al and temporal lobes. Orbits are normal. Mastoid air cells and middle ear cavities are clear. There is moderate mucosal thickening scattered throughout the paranasal sinuses. IMPRESSION: 1. Marked diffuse cerebral edema of indeterminate etiology with decrease in size of the ventricles, e ffacement of the sulci basal cisterns and brainstem herniation with effacement of CSF at the level of the foramen magnum and ring of C1. 2. Suggestion of a few foci of subarachnoid hemorrhage at the right temporal occipital region and sma ll subdural hematoma along the right side of the tentorium. Interpretation is however resulting incre ased density of the vessels, dura and choroid plexus in the ventricles. This and the diffuse cerebral edema with brainstem herniation were discussed with Dr. Vazquez at 9:02 AM. Reviewed, dictated and finalized at location B. IMPRESSION: 1. Marked diffuse cerebral edema of indeterminate etiology with decrease in siz e of the ventricles, effacement of the sulci basal cisterns and brainstem herni ation with effacement of CSF at the level of the foramen magnum and ring of C1. 2. Suggestion of a few foci of subarachnoid hemorrhage at the right temporal oc cipital region and small subdural hematoma along the right side of the tentoriu m. Interpretation is however resulting increased density of the vessels, dura a nd choroid plexus in the ventricles. This and the diffuse cerebral edema with b rainstem herniation were discussed with Dr. Vazquez at 9:02 AM.
--- NOTE | 2024-05-08 08:30 | PC.NURSE ---
1MG EPI GIVEN L TIB IO
--- NOTE | 2024-05-08 08:31 | PC.NURSE ---
PEA ON MONITOR, NO PALPABLE PULSE OR DOPPLER PULSE NOTED. DR CORRIGAN INTUBATED WITH 7.5ETT 21@LIP. +BREATH SOUNDS AND COLOR CHANGE NOTED
--- NOTE | 2024-05-08 08:33 | PC.NURSE ---
#2 EPI GIVEN IO
[2024-05-08] MEDS: SODIUM CHLORIDE 0.9% IV 1,000 ML 999 ML IV CONT ×4 (08:34→10:11)
--- NOTE | 2024-05-08 08:34 | PC.NURSE ---
NA HCO3 1AMP GIVEN 20G L WRIST INITIATED NS 1L WIDE OPEN
--- NOTE | 2024-05-08 08:35 | PC.NURSE ---
PEA WITH NO PULSE DURING FEMORAL CHECK
--- NOTE | 2024-05-08 08:36 | PC.NURSE ---
1AMP EPI GIVEN IVP
--- NOTE | 2024-05-08 08:37 | PC.NURSE ---
+CARDIAC WALL MOTION NOTED WHEN DR CORRIGAN CHECKED
--- NOTE | 2024-05-08 08:39 | PC.NURSE ---
1AMP EPI GIVEN IVP
--- NOTE | 2024-05-08 08:40 | PC.NURSE ---
PEA NOTED. +CARDIAC WALL MOTION
--- NOTE | 2024-05-08 08:41 | PC.NURSE ---
PT SHOCKED PER DR CORRIGAN
--- NOTE | 2024-05-08 08:42 | PC.NURSE ---
ROSC OBTAINED. SPONTANEOUS FEMORAL PULSE PALPATED AND +CARDIAC WALL MOTION NOTED
[2024-05-08] MEDS: NOREPINEPHRINE 8 MG/D5W 250 ML 8 MG/250 ML BAG 28.13 MG IV CONT (08:49)
--- NOTE | 2024-05-08 09:28 | ED.GENADULT ---
HPI - General Adult General Chief complaint: Cardiac Arrest/CPR Stated complaint: CARDIAC ARREST History of Present Illness HPI narrative: 58-year-old female presented to the emergency department and cardiac arrest. Patient was recently at [facility] and diagnosed with RSV. Patient's oxygen was stable while at [facility]. Patient was discharged back to her long-term. Patient states the long-term due to complications from MS. Patient began having worsening hypoxia today and ultimately EMS was called. While in route to the emergency department patient had cardiac arrest and CPR was started. Related Data Home Medications Medication Instructions Recorded Confirmed fingolimod 0.5 mg capsule (GilenFraudMetrix) 0.5 mg PO DAILY 12/12/21 05/08/24 albuterol sulfate 90 mcg/actuation 2 puff inhalation Q6H PRN 05/22/22 05/08/24 aerosol inhaler Shortness Of Breath Or Wheezing diphenhydramine HCl 25 mg capsule 25 mg PO Q4H PRN Itching 05/22/22 05/08/24 (Benadryl) docusate sodium 100 mg capsule 100 mg PO BID 05/22/22 05/08/24 (Colace) ergocalciferol (vitamin D2) 1,250 1,250 mcg PO WEEKLY 05/22/22 05/08/24 mcg (50,000 unit) capsule atorvastatin 20 mg tablet 20 mg PO HS 05/08/24 05/08/24 benzonatate 200 mg capsule 200 mg PO TID PRN Cough 05/08/24 05/08/24 cetirizine 10 mg capsule 10 mg PO DAILY 05/08/24 05/08/24 gabapentin 100 mg capsule 100 mg PO BID PRN nerve pain 05/08/24 05/08/24 melatonin 5 mg tablet 5 mg PO HS 05/08/24 05/08/24 trazodone 50 mg tablet 50 mg PO HS 05/08/24 05/08/24 Allergies Allergy/AdvReac Type Severity Reaction Status Date / Time guaifenesin Allergy Mild Unknown Verified 05/08/24 09:25 pseudoephedrine Allergy Unknown Unknown Verified 05/08/24 09:25 triprolidine Allergy Unknown Unknown Verified 05/08/24 09:25 peanut Allergy Unknown Verified 05/08/24 09:25 tree nut Allergy Unknown Verified 05/08/24 09:25 codeine AdvReac Intermediate SPACED OUT Verified 05/08/24 09:25 Review of Systems Review of Systems: All systems reviewed & are unremarkable except as noted in HPI and below PMFSH Past Medical History Medical History Anxiety Depression Kidney stones Multiple sclerosis Surgical History Surgical History No pertinent past surgical history Family History Family History Father Dementia Heart disease Other Bipolar disorder maternal aunt Social History Social History Social History: The patient has 5 children. She lives at a long-term. The patient is bed and WC bound. Her daughter saira castaneda is her power of commercial attorney for healthcare. Code status Full Smoking packs per day: 1 Smoking cigarettes per day: 20.0 Years smoked: 42 Smoking pack-years: 42.00 Smoking status: Former smoker Alcohol intake: never Substance use: former Substance use type: marijuana Lack of Transportation: No Lack of Food: Never True Current Housing: I Have Housing Concerned About Future Housing: No Difficulty Paying Gas/Electric Bills: No Difficulty Paying for Meds: No Currently Unemployed: No Education: High School Diploma/GED Difficulty w/ Childcare or Family Care: No Spiritual care concerns: No Exam Narrative: APPEARANCE: Full arrest HEAD: normocephalic, atraumatic. EYES: Fixed NOSE: Normal no drainage EARS:TMS clear with good light reflex. THROAT: Pharynx clear, no exudate. NECK: Supple. No adenopathy, no masses. RESPIRATORY: Ventilated lung sounds CARDIOVASCULAR: Regular rate and rhythm without murmurs rubs or gallops. ABDOMINAL: Soft, nontender, nondistended, normal bowel sounds MUSCULOSKELETAL: No spontaneous movement, lower extremity edema NEURO: Unresponsive SKIN: Warm, dry. Normal Color Course Course Emergenc
[2024-05-08 09:33] LABS: Hematocrit 42.8 % (37.0-47.0); Hemoglobin 12.4 g/dL (12.0-15.0); Mean Corpuscular Hemoglobin 25.9 pg (26-34); Mean Corpuscular Volume 89.4 fl (80-100); Mean Platelet Volume 11.3 fl (7.4-10.4); Platelet Count Result 296 k/mm3 (150-375); Red Blood Count 4.79 M/mm3 (4.2-5.4); Red Cell Distribution Width 16.5 % (11.5-14.5); White Blood Count 12.1 K/mm3 (4.5-10.0)
[2024-05-08 09:36] LABS: Prothrombin Time 52.5 Seconds (11.1-14.7)
[2024-05-08 09:38] LABS: Partial Thromboplastin Time 68.1 Seconds (22.3-36.8)
[2024-05-08 09:40] LABS: Lactic Acid Reflex 11.9 mmol/L (0.7-2.0)
[2024-05-08 09:46] LABS: INR 5.8
[2024-05-08 09:48] LABS: Alanine Aminotransferase 286 U/L (6-35); Albumin Level 3.5 g/dL (3.5-5.1); Alkaline Phosphatase 151 U/L (38-126); Anion Gap 20 mmol/L (4-12); Bilirubin,Total 0.7 mg/dL (0.2-1.3); Blood Urea Nitrogen 51 mg/dL (7-17); Carbon Dioxide 16 mmol/L (22-30); Chloride 117 mmol/L (98-107); Estimated Glomerular Filt Rate 20; Glucose 129 mg/dL (65-110); Potassium 4.3 mmol/L (3.4-5.0); Sodium 153 mmol/L (137-145)
--- NOTE | 2024-05-08 09:50 | PCRCNOTE ---
RT attempted to obtain ABG. Flash was shown but blood stopped pumping. RT attempted multiple times. Dr. Lev jerome.
[2024-05-08 09:54] LABS: Troponin I 0.082 ng/mL (0.000-0.034)
[2024-05-08 09:55] LABS: Band Neutrophils Percent 7 % (0-6); Basophils Absolute Manual 0.12 K/mm3 (0.0-0.1); Basophils Percent Manual 1 % (0-1); Eosinophils Absolute Manual 0.12 K/mm3 (0.02-0.50); Eosinophils Percent Manual 1 % (0-4); Large Platelets Present; Lymphocytes Absolute Manual 4.35 K/mm3 (1.1-4.5); Monocytes Absolute Manual 0.84 K/mm3 (0.1-0.90); Monocytes Percent Manual 7 % (3-9); Neutrophils Absolute Manual 6.65 K/mm3 (1.7-7.2); Neutrophils Percent Manual 48 % (46-73); Platelet Estimate Adequate (Adequate); Total Cells Counted 100
[2024-05-08 09:56] LABS: Atypical Lymphocytes Present; Giant Platelets Present; Schistocytes None Seen
--- NOTE | 2024-05-08 10:04 | PCRCNOTE ---
ABG late due to patient is a hard stick.
[2024-05-08 10:06] LABS: Aspartate Amino Transferase 981 U/L (14-36)
[2024-05-08 10:07] LABS: Alveolar/Arterial O2 Gradient 315.4 mmHg; Base Excess ABG -15.9 mEq/l (+/-2.0); Carboxyhemoglobin 0.3 % THb (0-2.0); Fractional Inspired Oxygen 100 %; HCO3 ABG 12.6 mEq/l (22.0-26.0); Methemoglobin ABG 0.5 %THb (0-1.5); Oxygen Content ABG 15.4 %vol (16.0-22.0); Oxygen Saturation ABG 99.6 % (95.0-100.0); Oxyhemoglobin 98.6 % THb (90.0-100.0); PCO2 ABG 39.7 mmHg (35.0-45.0); PO2 ABG 357.9 mmHg (80.0-100.0); PO2 FiO2 Ratio Arterial Blood 3.58 %; Reduced Hemoglobin 0.6 %THb (0-5.0); Total Hemoglobin 10.4 g/dL (12.0-18.0)
[2024-05-08 10:08] LABS: Arterial Blood Gas PEEP 5 cmH2O; Arterial Blood Gas Tidal Volume 400 ml; Arterial Blood Gas Vent Mode CMV; Arterial Blood Gas Ventilator rate 14 /MIN; Device VENTILATOR; Modified Allen's Test Pass; Site Drawn RIGHT RADIAL; pH ABG 7.118 (7.350-7.450)
[2024-05-08] MEDS: ACETAMINOPHEN 650 MG SUPPOSITORY RECTAL (10:48)
[2024-05-08] MEDS: SODIUM BICARBONATE 8.4% 50 MEQ/50 ML SYRINGE IV PUSH ×3 (10:50→20:52)
[2024-05-08 11:39] LABS: MRSA (PCR) NOT DETECTED (NOT DETECTE)
--- NOTE | 2024-05-08 11:44 | WPDCNINT ---
Assessment and Plan Assessment and plan (1) Cardiac arrest: Code(s): I46.9 - Cardiac arrest, cause unspecified Status: Acute Assessment and Plan: PE a cardiac arrest likely appears to be respiratory in etiology as patient was hypoxic and short of breath prior to the event. Required 5 rounds of CPR and epinephrine x 5 for ROSC Information obtained from ED physician as EMS report not available CTA negative for PE Check echo Supportive care including treatment for sepsis shock and acidosis as above Moderate TTM for encephalopathy (2) Acute respiratory failure: Code(s): J96.00 - Acute respiratory failure, unspecified whether with hypoxia or hypercapnia Status: Acute Assessment and Plan: Acute Respiratory failure secondary to cardiac arrest and ammonia which is likely aspiration CT scan negative for PE ABG and vent settings reviewed Patient given bicarb and repeat ABG ordered Continue full mechanical ventilation support to prevent hypoxemia/hypercarbia and end organ damage. (3) Shock: Code(s): R57.9 - Shock, unspecified Status: Acute Assessment and Plan: Likely multifactorial shock secondary to sepsis and possible cardiogenic component after cardiac arrest Patient appears to have bilateral lower lobe pneumonia on the CT scan which could be aspiration. Urinalysis also pending as patient has history of UTIs. Continue Levophed titration IV fluids with bicarb Start vasopressin infusion and stress dose hydrocortisone Blood sputum and urine cultures Empiric vancomycin and meropenem Patient has received 3 IV fluid bolus Monitor lactic acid level (4) Acute kidney injury: Code(s): N17.9 - Acute kidney failure, unspecified Status: Acute Assessment and Plan: Likely secondary to sepsis and shock Check CK and urine electrolytes CT abdomen does not show any kidney stone obstruction or hydronephrosis Monitor urine output electrolytes and creatinine IV bicarb for metabolic acidosis Black catheter was replaced after review of CT scan (5) Upper GI bleed: Code(s): K92.2 - Gastrointestinal hemorrhage, unspecified Status: Acute Assessment and Plan: Bloody suction from gastric tube Could be aspirated blood versus upper GI bleed IV Protonix q.12 hours Monitor hemoglobin Hold anticoagulation Treat coagulopathy (6) Encephalopathy: Code(s): G93.40 - Encephalopathy, unspecified Status: Acute Assessment and Plan: ? Anoxic brain injury Head CT negative Moderate TTM with goal temperature less than 36 C in light of shock, PEA arrest, coagulopathy, upper GI bleed Hold sedatives for now Check TSH (7) Pneumonia: Code(s): J18.9 - Pneumonia, unspecified organism Status: Acute Assessment and Plan: See above (8) Sepsis: Code(s): A41.9 - Sepsis, unspecified organism Status: Resolved Assessment and Plan: See above (9) Elevated troponin: Code(s): R79.89 - Other specified abnormal findings of blood chemistry Status: Acute Assessment and Plan: Likely secondary to sepsis, cardiac arrest, CPR Check EKG (10) Elevated liver enzymes: Code(s): R74.8 - Abnormal levels of other serum enzymes Status: Acute Assessment and Plan: Likely secondary to shock Monitor LFTs CT scan of abdomen pelvis reviewed (11) Metabolic acidosis: Code(s): E87.20 - Acidosis, unspecified Status: Acute Assessment and Plan: Patient received 2 amps of IV push bicarb in the ER IV fluids with bicarb Repeat ABG ordered (12) History of pulmonary embolism: Code(s): Z86.711 - Personal history of pulmonary embolism Status: Acute Assessment and Plan: Patient on Xarelto had intermediate and currently appears coagulopathic. Hold further anticoagulation at this time CTA negative for PE (13) Rib fractures: Code(s): S22.49XA - Multiple fractures of ribs, unspeci
[2024-05-08 11:46] LABS: Influenza A QL RT-PCR Negative (Negative); Influenza B QL RT-PCR Negative (Negative); RSV RNA, RT-PCR Positive (Negative); SARS-CoV-2 RNA PCR Negative (Negative)
--- NOTE | 2024-05-08 11:46 | PC.NURSE ---
0849: Norepinephrine started at 15mcg/min per EDP 0851: Norepinephrine titrated to 20mcg/min per EDP 0857: Norepinephrine titrated to 22mcg/min 0920: Norepinephrine titrated to 26mcg/min per EDP 0930: Norepinephrine titrated to 30mcg/min per EDP
--- NOTE | 2024-05-08 11:54 | ECG_ITS ---
Test Date: 2024-05-08 09:14:55 Measurements Intervals [place] Rate: 131 P: 50 ND: 120 QRS: 24 QRSD: 89 T: -73 QT: 245 QTc: 363 Interpretive Statements SINUS TACH[address] DEVIATION AND MODERATE T-WAVE ABNORMALITY, CONSIDER ANTEROLATERAL ISCHEMIA [-0.1+ mV T WAVE IN V3-V6] ST DEVIATION AND MODERATE T-WAVE ABNORMALITY, CONSIDER INFERIOR ISCHEMIA [-0.1+ mV T WAVE IN II/aVF] ABNORMAL ECG No previous ECG available for comparison Electronically Signed On 05-08-2024 15:52:20 CDT by Jeffy Childress M.D.
[2024-05-08 11:55] LABS: Alveolar/Arterial O2 Gradient 171.9 mmHg; Base Excess ABG -12.7 mEq/l (+/-2.0); Fractional Inspired Oxygen 40 %; HCO3 ABG 14.6 mEq/l (22.0-26.0); Oxygen Content ABG 14.6 %vol (16.0-22.0); Oxygen Saturation ABG 89.8 % (95.0-100.0); Oxyhemoglobin 88.4 % THb (90.0-100.0); PCO2 ABG 38.5 mmHg (35.0-45.0); PO2 FiO2 Ratio Arterial Blood 1.73 %; Total Hemoglobin 11.7 g/dL (12.0-18.0)
[2024-05-08 11:57] LABS: Arterial Blood Gas PEEP 5 cmH2O; Arterial Blood Gas Tidal Volume 400 ml; Arterial Blood Gas Vent Mode CMV; Arterial Blood Gas Ventilator rate 14 /MIN; Device VENTILATOR; Modified Allen's Test Pass; Site Drawn RIGHT RADIAL; pH ABG 7.196 (7.350-7.450)
[2024-05-08 12:07] LABS: Procalcitonin 2.2 ng/mL
[2024-05-08 12:13] LABS: Fibrinogen 732 mg/dl (215-510)
--- NOTE | 2024-05-08 12:13 | PCCCNOTE ---
Pt arrived to ER with EMS performing CPR. No family present. Pt from [facility]. Call placed to [facility] and they stated they have called and spoke with dtr Lurdes. Call placed to Lurdes and she was in route to [place]. Lurdes arrived with brother. She and her brother declined need for wood finisher services at this time. ER provider spoke with family to update on condition. Additional family to arrive including pt's mother.
--- NOTE | 2024-05-08 12:25 | ADMGEN ---
This patient, Corry Canela, was admitted to Intensive Care Unit-3. Patient/family oriented to hospital policies and general routines including ID bracelet, bed and alarms, visiting hours, pain management, procedures, bathroom and other care routines, personal items, smoking policy, room service/diet, and visiting hours. Information on how to activate the Rapid Response Team has been discussed. Patient/Family are encouraged to report perceived risks to care and to ask questions if they do not understand what they are told or what they should do.
[2024-05-08 12:28] LABS: Reflex Lactic Acid Yes or No Add Lactic
[2024-05-08 12:28] LABS: Creatinine Urine 32.5 mg/dL
[2024-05-08 12:31] LABS: Appearance Urine Turbid (Clear); Bacteria Urine 1+ /hpf; Bilirubin Urine Negative (Negative); Blood Urine 3+ (Negative); Color Urine Dark Yellow (Yellow); Glucose Urine UA 1+ mg/dL (Negative); Ketones Urine Negative (Negative); Leukocyte Esterase Ur Trace LEU/UL (Negative); Mucus Urine Present /lpf; Need Manual Microscopic Reviewed; Nitrate Urine Negative (Negative); Non Pathogenic Casts >20; Protein Urine 4+ mg/dL (Negative); RBC Urine 51-100 /hpf (0-2); Sodium Urine Random 53 meq/L; Squamous Epithelial Cell Urine Occasional /hpf (Few); WBC Urine 51-100 /hpf (0-3); pH Urine 7.5 (5.0-9.0)
[2024-05-08 12:31] LABS: Creatine Kinase 6414 U/L (30-135)
[2024-05-08 12:57] LABS: Ammonia < 9 umol/L (9-30)
[2024-05-08 12:59] LABS: Specific Grav Ur 1.038 (1.001-1.035)
[2024-05-08] MEDS: VASOPRESSIN INJ 100 UNITS in DEXTROSE 5% 95 ML IV CONT (13:00)
[2024-05-08 13:01] LABS: Add Urine Microscopic? YES
--- NOTE | 2024-05-08 13:05 | WPDPROCEDUR ---
Procedures Central Line Placement Right Femoral: Central Line Date: 05/08/24 Central Line Time: 12:30 Discussed w/ the patient/family/POA,the placement of a central venous catheter, including its clinical necessity/indication & associated potential risks, benifits and alternatives.: Yes The patient/family/POA understand(s) and acknowledge(s) the need to proceed with central venous catheter insertion as an important element of the patient's clinical management.: Yes Consent: I have discussed with the patient and/or surrogate, the non-emergent placement of a central venous catheter, including its clinical necessity/indication and associated potential risks and complications. The patient and/or surrogate understand(s) and acknowledge(s) the need to proceed with central venous catheter insertion as an important element of the patient's clinical management. Time Out Performed: Yes Patient Position: supine Patient placed on monitor/pulse ox: Yes Provider Prep: mask, sterile gown, sterile gloves, Max. sterile barrier precautions, cap and hand hygiene with conventional soap/water or alcohol based hand rub Central line prep: Povidone-Iodine 1% Sterile US Technique with sterile gel/sterile probe covers: Yes Central line lumen inserted: triple Length (cm): 16 Depth of Insertion (cm): 16 Post Procedure: sutured in place, good blood return, all ports aspirated, flushed, capped, transparent dressing and aseptic technique maintained throughout procedure Patient tolerated procedure: well Complications: none
--- NOTE | 2024-05-08 13:12 | PM.CNCAR ---
Assessment and Plan Assessment and plan (1) Cardiac arrest: Code(s): I46.9 - Cardiac arrest, cause unspecified Status: Acute (2) Encephalopathy: Code(s): G93.40 - Encephalopathy, unspecified Status: Acute Plan This is a 58-year-old woman who apparently has acute cardio respiratory arrest because of severe pneumonia apparently was elsewhere recently with a diagnosis of RSV. Her initial arrest rhythm of pulseless electrical activity is ominous. She will be supported aggressively with pressors and hypothermia protocol. Prognosis in this setting appears to be quite poor. At this point there is no role for or reason for emergency coronary angiography as I do not believe this was primarily a cardiac event Jeffy Childress MD [facility] History of Present Illness History of Present Illness Consult date/time: 05/08/24 13:12 Reason For Visit: Cardiac Arrest Pneumonia Narrative: This is a 58-year-old woman I am seeing at the request of the hospitalist because of cardiac arrest in the field for which she has been resuscitated and admitted to the ICU. She is unknown to me prior to this consultation and the history is obtained by reviewing her chart patient is unresponsive and on mechanical ventilator support obviously incapable of providing any additional history. Apparently she has a debilitated patient with multiple sclerosis and lives in a jail. She was apparently recently hospitalized elsewhere with pneumonia with RSV virus according to the staff. She was reporting respiratory difficulty and was transported here by ambulance this morning. Apparently during transport he arrested with pulseless electrical activity. I do not have any rhythm strips or EKGs of that event for my review directly. She was resuscitated according to ACLS protocol obviously intubated and brought to the emergency room. Immediately after resuscitation her EKG shows is marked sinus tachycardia with diffuse ST segment depression. The laboratory data shows significant lactic acidosis and renal insufficiency with a creatinine of 2.5 which looks like was previously normal. She is hypotensive with systolic blood pressure in the high 70s despite pressors. She is not sedated and unresponsive hypothermia protocol is about to be started. CT of the chest demonstrates diffuse bilateral pneumonia Review of Systems Review of Systems: ROS unobtainable: Yes unobtainable due to endotracheal tube and unobtainable due to mental status PMFSH Past Medical History Medical History Anxiety Depression Kidney stones Multiple sclerosis Surgical History Surgical History No pertinent past surgical history Family History Family History Father Dementia Heart disease Other Bipolar disorder maternal aunt Social History Social History Social History: The patient has 5 children. And lives with her but it sounds like she was supposed to go to a jail today. The patient is typically bed lb and is on disability. 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 Her daughter saira castaneda is her power of all source intelligence for healthcare. patient is listed as a current smoker Code status DNR Smoking packs per day: 1 Smoking cigarettes per day: 20.0 Years smoked: 42 Smoking pack-years: 42.00 Smoking status: Former smoker Alcohol intake: never Substance use: former Substance use type: marijuana Lack of Transportation: No Lack of Food: Never True Current Housing: I Have Housing Concerned About Future Housing: No Difficulty Paying Gas/Electric Bills: No Difficulty Paying for Meds: No Currently Unemployed: No Education: High School Diploma/GED Difficulty w/ Childcare or Family Care: No Spiritual care concerns: No
[2024-05-08] MEDS: SODIUM BICARBONATE 8.4% 150 MEQ in WATER, STERILE FOR INJECTION 950 ML 100 MEQ IV CONT ×2 (13:35→23:58)
[2024-05-08] MEDS: HYDROCORTISONE SODIUM SUCCINATE 100 MG/2 ML VIAL IV PUSH ×2 (13:35→20:54)
[2024-05-08 13:40] LABS: Hematocrit 39.5 % (37.0-47.0); Hemoglobin 11.6 g/dL (12.0-15.0); Mean Corpuscular HGB Conc 29.4 g/dl (32-36); Mean Corpuscular Hemoglobin 25.7 pg (26-34); Mean Corpuscular Volume 87.4 fl (80-100); Mean Platelet Volume 11.1 fl (7.4-10.4); Platelet Count Result 252 k/mm3 (150-375); Red Blood Count 4.52 M/mm3 (4.2-5.4); Red Cell Distribution Width 16.5 % (11.5-14.5); White Blood Count 16.4 K/mm3 (4.5-10.0)
[2024-05-08 13:50] LABS: Anion Gap 17 mmol/L (4-12); Blood Urea Nitrogen 44 mg/dL (7-17); Calcium 6.7 mg/dL (8.4-10.2); Carbon Dioxide 14 mmol/L (22-30); Chloride 118 mmol/L (98-107); Estimated CRCL calculation 20 ml/min; Estimated Glomerular Filt Rate 21; Glucose 89 mg/dL (65-110); Sodium 149 mmol/L (137-145)
[2024-05-08 13:57] LABS: Lactic Acid Reflex 8.4 mmol/L (0.7-2.0)
[2024-05-08 14:07] LABS: Troponin I 0.547 ng/mL (0.000-0.034)
[2024-05-08] MEDS: MEROPENEM 500 MG/NS 100 ML 500 MG/100 ML BAG 200 MG IVPB ×2 (14:43→19:59)
--- NOTE | 2024-05-08 15:03 | PM.IMHP ---
H&P: HPI History of Present Illness Date/Time: 05/08/24 15:03 Chief Complaint: Cardiac arrest Narrative: 58yo female with MS with weakness and is bedbound, hx of PE, anxiety and depression brought in from the half-way for cardiac arrest. Patient intubated so unable to provide hx. Dtr (POA) in the room to provide some hx. Patient was feeling ill recently and presented to an outside hospital ([facility]) on 05/04 where she was diagnosed with RSV. CXR was clear and remained on room air. She was able to return to the half-way. Over the next fdew days, she developed fevers and increasing shortness of breath. Today, she developed hypoxia with SOB and EMS was contacted. In route, patient had a cardiac arrest in the ambulance. She was down for about 15-20 minutes. She received bicarb and 5 rounds of epinephrine before ROSC was obtained. She was intubated. CT brain showing no acute findings. CTA Ch/A/P showing no PE but widespread bilateral PNA. Rib fractures noted. Black in vagina. WBC 12K, INR 5.8, sodium 153, Chl 117, bicarb 16 with AG 20, BUN 51 and Cr 2.5. She has normal renal function at baseline. Lactic acid 11.9. TCK 6400. AST/ALT elevated. RSV positive here. MRSA negative. UA noted and reflexed to a UCx. She has hx of ESBL UTI. BCx collected. She ws given IV fluid, IV abx and started on pressors. She was admitted to the ICU for further care. She was started on temperature guided cooling. Review of Systems Review of Systems: ROS unobtainable: Yes unobtainable due to mental status PMFSH Past Medical History Medical History Anxiety Depression Kidney stones Multiple sclerosis Surgical History Surgical History No pertinent past surgical history Family History Family History Father Dementia Heart disease Other Bipolar disorder maternal aunt Social History Social History Social History: The patient has 5 children. She lives at a half-way. The patient is bed and WC bound. Her daughter saira castaneda is her power of insurance defense attorney for healthcare. Code status Full Smoking packs per day: 1 Smoking cigarettes per day: 20.0 Years smoked: 42 Smoking pack-years: 42.00 Smoking status: Former smoker Alcohol intake: never Substance use: former Substance use type: marijuana Lack of Transportation: No Lack of Food: Never True Current Housing: I Have Housing Concerned About Future Housing: No Difficulty Paying Gas/Electric Bills: No Difficulty Paying for Meds: No Currently Unemployed: No Education: High School Diploma/GED Difficulty w/ Childcare or Family Care: No Spiritual care concerns: No Meds Home Medications and Allergies Home Medications Medication Instructions Recorded Confirmed Type fingolimod 0.5 mg capsule (Gilenya) 0.5 mg PO DAILY 12/12/21 05/08/24 History albuterol sulfate 90 mcg/actuation 2 puff inhalation Q6H PRN 05/22/22 05/08/24 History aerosol inhaler Shortness Of Breath Or Wheezing diphenhydramine HCl 25 mg capsule 25 mg PO Q4H PRN Itching 05/22/22 05/08/24 History (Benadryl) docusate sodium 100 mg capsule 100 mg PO BID 05/22/22 05/08/24 History (Colace) ergocalciferol (vitamin D2) 1,250 1,250 mcg PO WEEKLY 05/22/22 05/08/24 History mcg (50,000 unit) capsule acetaminophen 325 mg tablet 650 mg PO Q4-6H PRN fever or pain 05/24/22 05/08/24 Rx #30 tabs rivaroxaban 20 mg tablet (Xarelto) 20 mg PO QPM #30 tabs 09/18/22 05/08/24 Rx atorvastatin 20 mg tablet 20 mg PO HS 05/08/24 05/08/24 History benzonatate 200 mg capsule 200 mg PO TID PRN Cough 05/08/24 05/08/24 History cetirizine 10 mg capsule 10 mg PO DAILY 05/08/24 05/08/24 History gabapentin 100 mg capsule 100 mg PO BID PRN nerve pain 05/08/24 05/08/24 History melatoni
[2024-05-08] MEDS: CALCIUM GLUC 2,000 MG/NS 100ML 2,000 MG/100 ML BAG 100 MG IVPB ×2 (15:13→21:05)
[2024-05-08] MEDS: VANCOMYCIN 1,750 MG/NS 500 ML BAG 250 MG IVPB (15:27)
[2024-05-08] MEDS: CENTRAL LINE FLUSH 10 ML IV PUSH ×2 (15:30→20:52)
[2024-05-08] MEDS: NOREPINEPHRINE 8 MG/D5W 250 ML 8 MG/250 ML BAG 56.25 MG IV CONT (16:10)
[2024-05-08] MEDS: PANTOPRAZOLE SODIUM IV 40 MG VIAL IV PUSH (20:00)
[2024-05-08 20:18] LABS: Glucose Point of Care 163 mg/dl (65-105)
[2024-05-08 20:43] LABS: Troponin I 0.588 ng/mL (0.000-0.034)
[2024-05-08] MEDS: NOREPINEPHRINE 8 MG/D5W 250 ML 8 MG/250 ML BAG 43.13 MG IV CONT (21:01)
[2024-05-08 23:05] LABS: Hematocrit 36.6 % (37.0-47.0); Hemoglobin 11.1 g/dL (12.0-15.0); Mean Corpuscular HGB Conc 30.3 g/dl (32-36); Mean Corpuscular Hemoglobin 25.9 pg (26-34); Mean Corpuscular Volume 85.3 fl (80-100); Mean Platelet Volume 11.2 fl (7.4-10.4); Platelet Count Result 195 k/mm3 (150-375); Red Blood Count 4.29 M/mm3 (4.2-5.4); Red Cell Distribution Width 16.5 % (11.5-14.5); White Blood Count 13.8 K/mm3 (4.5-10.0)
[2024-05-08 23:58] LABS: Glucose Point of Care 211 mg/dl (65-105)
[2024-05-09] VITALS (128 sets, daily range): BP systolic 53–150; BP diastolic 26–99; PULSE 80–127; RESP 14; TEMP 34.1–37.4; O2SAT 89–100
[2024-05-09] MEDS: NOREPINEPHRINE 8 MG/D5W 250 ML 8 MG/250 ML BAG 35.63 MG IV CONT (02:33)
[2024-05-09 04:38] LABS: Basophils Absolute Auto 0.1 K/mm3 (0.0-0.1); Basophils Percent Auto 0.7 % (0.2-1.2); Eosinophils Absolute Auto 0.5 K/mm3 (0-0.3); Hematocrit 36.1 % (37.0-47.0); Hemoglobin 11.1 g/dL (12.0-15.0); Immature Granulocyte Absolute 0.36 K/mm3 (0.00-0.031); Immature Granulocyte Percent A 2.8 % (0-0.5); Lymphocytes Absolute Auto 0.36 K/mm3 (0.9-3.2); Lymphocytes Percent Auto 2.8 % (18.3-44.2); Mean Corpuscular HGB Conc 30.7 g/dl (32-36); Mean Corpuscular Hemoglobin 25.8 pg (26-34); Mean Corpuscular Volume 83.8 fl (80-100); Mean Platelet Volume 11.3 fl (7.4-10.4); Monocytes Absolute Auto 0.6 K/mm3 (0.1-0.6); Monocytes Percent Auto 4.5 % (2.6-8.5); Neutrophils Absolute Auto 11.1 K/mm3 (1.3-6.7); Neutrophils Percent Auto 85.2 % (45.5-73.1); Platelet Count Result 188 k/mm3 (150-375); Red Blood Count 4.31 M/mm3 (4.2-5.4); Red Cell Distribution Width 16.3 % (11.5-14.5)
[2024-05-09 04:49] LABS: Prothrombin Time 76.2 Seconds (11.1-14.7)
[2024-05-09 05:00] LABS: Alanine Aminotransferase 590 U/L (6-35); Albumin Level 2.7 g/dL (3.5-5.1); Alkaline Phosphatase 160 U/L (38-126); Anion Gap 8 mmol/L (4-12); Bilirubin,Total 1.8 mg/dL (0.2-1.3); Blood Urea Nitrogen 57 mg/dL (7-17); Calcium 7.2 mg/dL (8.4-10.2); Carbon Dioxide 28 mmol/L (22-30); Chloride 107 mmol/L (98-107); Estimated CRCL calculation 20 ml/min; Estimated Glomerular Filt Rate 21; Glucose 271 mg/dL (65-110); Magnesium 2.1 mg/dL (1.6-2.3); Potassium 3.3 mmol/L (3.4-5.0); Sodium 143 mmol/L (137-145)
[2024-05-09 05:01] LABS: Alveolar/Arterial O2 Gradient 172.5 mmHg; Base Excess ABG 4.4 mEq/l (+/-2.0); Carboxyhemoglobin 0.1 % THb (0-2.0); Fractional Inspired Oxygen 50 %; HCO3 ABG 30.2 mEq/l (22.0-26.0); Oxygen Saturation ABG 98.5 % (95.0-100.0); Oxyhemoglobin 98.5 % THb (90.0-100.0); PCO2 ABG 50.4 mmHg (35.0-45.0); PO2 ABG 127.3 mmHg (80.0-100.0); PO2 FiO2 Ratio Arterial Blood 2.55 %; Reduced Hemoglobin 1.4 %THb (0-5.0); Total Hemoglobin 12.1 g/dL (12.0-18.0); pH ABG 7.396 (7.350-7.450)
[2024-05-09 05:02] LABS: Arterial Blood Gas Ventilator rate 14 /MIN; Device VENTILATOR; Modified Allen's Test Pass; Site Drawn RIGHT RADIAL
[2024-05-09 05:03] LABS: Arterial Blood Gas PEEP 5 cmH2O; Arterial Blood Gas Tidal Volume 400 ml; Arterial Blood Gas Vent Mode CMV
[2024-05-09 05:04] LABS: INR 9.5
[2024-05-09 05:16] LABS: Anisocytosis 1+; Ovalocytes 1+; Platelet Estimate Adequate (Adequate)
[2024-05-09 05:17] LABS: Burr Cells 2+; Schistocytes Rare
--- NOTE | 2024-05-09 05:22 | PC.NURSE ---
Laurie at [facility] called and made aware of patient maintained on a ventilator after PEA cardiac arrest. [facility] aware that patient is RSV positive and was admitted yesterday, currently undergoing targeted temperature management. Reference number [id number].
[2024-05-09] MEDS: HYDROCORTISONE SODIUM SUCCINATE 100 MG/2 ML VIAL IV PUSH ×3 (05:30→21:52)
[2024-05-09] MEDS: CENTRAL LINE FLUSH 10 ML IV PUSH ×3 (05:31→22:00)
[2024-05-09 05:40] LABS: Fibrinogen 479 mg/dl (215-510); Partial Thromboplastin Time 65.8 Seconds (22.3-36.8)
[2024-05-09 05:41] LABS: D Dimer > 20.00 ug/mL (<0.48)
[2024-05-09 05:49] LABS: Creatine Kinase 10933 U/L (30-135)
[2024-05-09 05:52] LABS: Aspartate Amino Transferase 2683 U/L (14-36)
--- NOTE | 2024-05-09 06:31 | PC.NURSE ---
Patient's Meng called for an update on . is not listed as contact for receiving information and daughter, Lurdes (POA), has requested that updates not be given to him. RN told that he was not listed to receive information and that he needed to contact patient's daughter for any updates. Patient's became very agitated and asking where patient's daughter was; RN again told to contact daughter. continued to yell at RN and hung up.
--- NOTE | 2024-05-09 06:34 | PC.NURSE ---
MTS notified of patient condition. Ludy from [facility] arrived and asked about possibility of family making end of life decisions and patient prognosis. Ludy stated to contact [facility] or herself ([phone]) if family discusses withdrawal and running tests to determine brain . Will continue to monitor.
[2024-05-09 08:08] LABS: Glucose Point of Care 274 mg/dl (65-105)
[2024-05-09] MEDS: POTASSIUM CHLORIDE 20 MEQ PACKET (FOR LIQUID) 40 MEQ FEED TUBE (08:10)
[2024-05-09] MEDS: PHYTONADIONE ADULT INJ 10 MG in DEXTROSE 5% IN WATER 50 ML 100 MG IVPB (08:10)
[2024-05-09] MEDS: PANTOPRAZOLE SODIUM IV 40 MG VIAL IV PUSH ×2 (08:10→20:08)
--- NOTE | 2024-05-09 08:28 | WPDINTPN ---
Progress Note: A&P Assessment and Plan (1) Cardiac arrest: Code(s): I46.9 - Cardiac arrest, cause unspecified Status: Acute Assessment and Plan: PE a cardiac arrest likely appears to be respiratory in etiology as patient was hypoxic and short of breath prior to the event. Required 5 rounds of CPR and epinephrine x 5 for ROSC Information obtained from ED physician as EMS report not available CTA negative for PE Supportive care including treatment for sepsis, shock and acidosis as above Moderate TTM for encephalopathy Echo Summary 1. Complete two-dimensional, color flow and Doppler transthoracic echocardiogram is performed. 2. Normal left and right ventricular size and systolic function. 3. Mild tricuspid insufficiency velocities indicate estimated RV systolic pressure of 42 mmHg. 4. No significant valvular dysfunction. (2) Acute respiratory failure: Code(s): J96.00 - Acute respiratory failure, unspecified whether with hypoxia or hypercapnia Status: Acute Assessment and Plan: Acute Respiratory failure secondary to cardiac arrest and ammonia which is likely aspiration CT scan negative for PE ABG and vent settings reviewed Patient given bicarb for metabolic acidosis Continue full mechanical ventilation support to prevent hypoxemia/hypercarbia and end organ damage. (3) Shock: Code(s): R57.9 - Shock, unspecified Status: Acute Assessment and Plan: Likely multifactorial shock secondary to sepsis and possible cardiogenic component after cardiac arrest Patient appears to have bilateral lower lobe pneumonia on the CT scan which could be aspiration. Urinalysis suggest the patient has UTI. Continue Levophed titration, vasopressin infusion and stress dose hydrocortisone DC IV fluids with bicarb Blood sputum and urine cultures sent pending Continue Empiric vancomycin and meropenem Patient has received 3 IV fluid bolus Monitor lactic acid level which is still elevated (4) Acute kidney injury: Code(s): N17.9 - Acute kidney failure, unspecified Status: Acute Assessment and Plan: Likely secondary to sepsis and shock Patient also has rhabdomyolysis CT abdomen does not show any kidney stone obstruction or hydronephrosis Monitor urine output electrolytes and creatinine Discontinue IV bicarb for metabolic acidosis and switch to LR at a conservative rate Black catheter was replaced after review of CT scan Consult nephrology (5) Upper GI bleed: Code(s): K92.2 - Gastrointestinal hemorrhage, unspecified Status: Acute Assessment and Plan: Bloody suction from gastric tube Could be aspirated blood versus upper GI bleed IV Protonix q.12 hours Monitor hemoglobin which has been stable Hold anticoagulation Treat coagulopathy (6) Encephalopathy: Code(s): G93.40 - Encephalopathy, unspecified Status: Acute Assessment and Plan: Patient appears to have Anoxic brain injury Head CT negative on presentation Patient was started Moderate TTM with goal temperature less than 36 C in light of shock, PEA arrest, coagulopathy, upper GI bleed Patient has not received any sedatives since her cardiac arrest Normal ammonia and TSH Exam as above patient is unresponsive to pain, does not have spontaneous respiratory effort or cough and gag on today's exam Will consult neurology, Check EEG and repeat head CT (7) Pneumonia: Code(s): J18.9 - Pneumonia, unspecified organism Status: Acute Assessment and Plan: See above (8) Sepsis: Code(s): A41.9 - Sepsis, unspecified organism Status: Resolved Assessment and Plan: See above (9) Elevated troponin: Code(s): R79.89 - Other specified abnormal findings of blood chemistry Status: Acute Assessment and Plan: Likely secondary to sepsis, cardiac arrest, CPR EKG reviewed Cardiology following (10) Elevated liver enzymes: Code(s): R74.8 - Abnormal levels o
--- NOTE | 2024-05-09 09:34 | P.PNCROSS_ITS ---
Event Note Event Note Event Note: Head CT obtained and discussed with radiologist IMPRESSION: 1. Marked diffuse cerebral edema of indeterminate etiology with decrease in size of the ventricles, effacement of the sulci basal cisterns and brainstem herniation with effacement of CSF at the level of the foramen magnum and ring of C1. 2. Suggestion of a few foci of subarachnoid hemorrhage at the right temporal occipital region and small subdural hematoma along the right side of the tentorium. Interpretation is however resulting increased density of the vessels, dura and choroid plexus in the ventricles. This and the diffuse cerebral edema with brainstem herniation were discussed with Dr. Vazquez at 9:02 AM. I met with patient's daughter, mother, sister and another family member in presence of patient's nurse Tomasa and health intensive care anaesthetist Odilia. I discussed CT scan results and current situation. I explained the patient's prognosis is now poor and will likely not survive. I explained to them that we will rewarm patient to evaluate her for but neurological criteria since patient is not showing any signs of neurological activity. We also discussed further resuscitation effort in case patient has another cardiac arrest and patient's daughter who is patient's POA decided the patient be made DNR at this time. She is going to talk to her other siblings before making any further decisions regarding whether to proceed with palliative care or wait until brain testing is performed. Neurology has been consulted an EEG is also ordered.
[2024-05-09] MEDS: INSULIN ASPART (*BKC) 100 UNITS/ML SUB-Q ×5 (09:39→23:27)
[2024-05-09] MEDS: MEROPENEM 500 MG/NS 100 ML 500 MG/100 ML BAG 200 MG IVPB ×2 (09:40→20:06)
[2024-05-09] MEDS: LACTATED RINGERS 1,000 ML 75 ML IV CONT ×2 (09:41→23:41)
[2024-05-09] MEDS: NOREPINEPHRINE 8 MG/D5W 250 ML 8 MG/250 ML BAG 56.25 MG IV CONT ×3 (09:50→19:21)
[2024-05-09] MEDS: EPINEPHrine INJ 1 MG in DEXTROSE 5% IN WATER 250 ML 15.06 MG IV CONT (10:03)
--- NOTE | 2024-05-09 10:17 | P.PNCROSS_ITS ---
Event Note Event Note Event Note: Spoke to patient's Brandon Canela by phone and provided him with patient 's information. I updated him with patient's presentation and course in the hospital and result of CT scan done this morning along with her neurological exam. I Explained him that Corry is critically ill and likely will not survive. I answered all his questions and he states that he will try to visit her later this afternoon
--- NOTE | 2024-05-09 10:56 | WPDNEURCNPN ---
Assessment and Plan Assessment and plan (1) Cardiac arrest: Code(s): I46.9 - Cardiac arrest, cause unspecified Status: Acute (2) Encephalopathy: Code(s): G93.40 - Encephalopathy, unspecified Status: Acute Plan Cardiopulmonary arrest with multiple other comorbid conditions awaiting the EEG but in the meantime treatment is being continued as such Consult date: 05/09/24 HPI: Corry Canela is a 58 year old female admitted to the hospital through the emergency room for the cardiac arrest. She patient had been recently sn [facility] where he was diagnosed to have RSV and was discharged in stable condition back to his shelter where he has been residing with the ongoing diagnosis of multiple sclerosis on the day of admission to the ER he began having worsening hypoxia and was ultimately brought to the hospital again. He has been taking multiple medications particular to include fingolimod 0.5mg capsule daily for the demyelinating disease, and albuterol sulfate inhaler accordingly he is reportedly allergic to multiple medications as outlined. His previous follow-up also includes diagnosis of anxiety with depression in addition to multiple sclerosis as mentioned above. He has smoked for 42 years smoking pack years of 42 but at present is a former smoker and does not drink alcohol at the time of visit to the ER his vital signs included normal temp 98.1? 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 were consulted his CBC was with t leukocytosis CMP was abnormal with CK of 6414 AST 981 ALT 286, x-ray chest with pneumonia, CTA of the chest with no pulmonary embolus but consistent bilateral widespread pneumonia CT of the head with diffuse cerebral edema including decreased size of the ventricles effacement of the sulci and basal cisterns and also brainstem herniation with effacement of CSF at the level of the foramen magnum and C1 ring also suggestion of few foci of subarachnoid hemorrhage in the right temporal occipital region and small subdural hematoma along the right side of the tentorium. Neuro consultation has been obtained to evaluate the neurological status photographic processor has already discussed with the family about the poor prognosis and the possibility of the cerebral and for that reason EEG has been ordered. [facility] Past Medical History Medical History Anxiety Depression Kidney stones Multiple sclerosis Surgical History Surgical History No pertinent past surgical history Family History Family History Father Dementia Heart disease Other Bipolar disorder maternal aunt Social History Social History Social History: The patient has 5 children. She lives at a shelter. The patient is bed and WC bound. Her daughter saira castaneda is her power of civil rights attorney for healthcare. Code status Full Smoking packs per day: 1 Smoking cigarettes per day: 20.0 Years smoked: 42 Smoking pack-years: 42.00 Smoking status: Former smoker Alcohol intake: never Substance use: former Substance use type: marijuana Lack of Transportation: No Lack of Food: Never True Current Housing: I Have Housing Concerned About Future Housing: No Difficulty Paying Gas/Electric Bills: No Difficulty Paying for Meds: No Currently Unemployed: No Education: High School Diploma/GED Difficulty w/ Childcare or Family Care: No Spiritual care concerns: No Meds Home Medications and Allergies Home Medications Medication Instructions Recorded Confirmed Type fingolimod 0.5 mg capsule ([employer]) 0.5 mg PO DAILY 12/12/21 05/08/24 History albuterol sulfate 90 mcg/actuation 2 puff inhalation Q6H PRN 05/22/22 05/08/24 History aero
--- NOTE | 2024-05-09 11:48 | PCFNICU ---
ICU Rounding Note: Pt current nutrition is NPO. Last recorded weight is 71.4 kg. Bowel Motility: No BM reported at this time. Labs Reviewed: Glu 271, GFR 21, BUN 57, Cr 2.4,Alb 2.7, Hct 36.1, Hgb 11.1 Meds Noted: Protonix, LR, Levophed, Vasopressin, Epinephrine. Skin: WNL Additional Notes: Patient current with mechanical vent. Spoke with Straw Boss and nursing today, prognosing is poor. Patient made DNR. Straw Boss is in discussions with family regarding plan of care. No nutrition today. Following daily in ICU rounds.
[2024-05-09] MEDS: ALBUMIN HUMAN 25% 25 GM/100 ML 100 ML IVPB ×3 (11:55→23:25)
[2024-05-09 12:03] LABS: Glucose Point of Care 283 mg/dl (65-105)
[2024-05-09 13:12] LABS: INR 4.7; Prothrombin Time 44.5 Seconds (11.1-14.7)
[2024-05-09 14:20] LABS: Hematocrit 31.4 % (37.0-47.0); Hemoglobin 9.5 g/dL (12.0-15.0); Mean Corpuscular HGB Conc 30.3 g/dl (32-36); Mean Corpuscular Hemoglobin 25.7 pg (26-34); Mean Corpuscular Volume 85.1 fl (80-100); Mean Platelet Volume 11.3 fl (7.4-10.4); Platelet Count Result 178 k/mm3 (150-375); Red Blood Count 3.69 M/mm3 (4.2-5.4); White Blood Count 13.7 K/mm3 (4.5-10.0)
[2024-05-09 14:38] LABS: Lactic Acid Reflex 4.7 mmol/L (0.7-2.0)
[2024-05-09 14:41] LABS: Alanine Aminotransferase 450 U/L (6-35); Albumin Level 3.4 g/dL (3.5-5.1); Alkaline Phosphatase 128 U/L (38-126); Anion Gap 10 mmol/L (4-12); Bilirubin,Total 1.8 mg/dL (0.2-1.3); Blood Urea Nitrogen 57 mg/dL (7-17); Carbon Dioxide 31 mmol/L (22-30); Chloride 101 mmol/L (98-107); Estimated CRCL calculation 19 ml/min; Estimated Glomerular Filt Rate 19; Glucose 331 mg/dL (65-110); Phosphorus 5.8 mg/dL (2.5-4.5); Potassium 3.5 mmol/L (3.4-5.0); Sodium 142 mmol/L (137-145)
[2024-05-09 15:19] LABS: Aspartate Amino Transferase 1650 U/L (14-36)
[2024-05-09] MEDS: POTASSIUM CHLORIDE 20 MEQ PACKET (FOR LIQUID) FEED TUBE (15:26)
[2024-05-09 16:03] LABS: Glucose Point of Care 302 mg/dl (65-105)
[2024-05-09] MEDS: EPINEPHrine INJ 1 MG in DEXTROSE 5% IN WATER 250 ML 30.12 MG IV CONT (17:00)
[2024-05-09 17:17] LABS: Reflex Lactic Acid Yes or No Add Lactic
--- NOTE | 2024-05-09 17:43 | PM.IMPN ---
Progress Note: A&P Assessment and Plan (1) Cerebral edema due to anoxia: Code(s): G93.6 - Cerebral edema; R09.02 - Hypoxemia Status: Acute Assessment and Plan: CT brain this morning showing marked diffuse cerebral edema, effacement of the sulci basal cisterns and brainstem herniation. Also with suggestion of a few foci of subarachnoid hemorrhage at the right temporal occipital region and small subdural hematoma along the right side of the tentorium. Related to cardiac arrest and coagulopathy. Family aware and they plan to make patient comfortable. SHe is DNR now. Plan to withdraw care when family is ready. (2) Cardiac arrest: Code(s): I46.9 - Cardiac arrest, cause unspecified Status: Acute Assessment and Plan: Patient developed cardiac arrest in the ambulance in transit to the hospital. [place] arrest due to respiratory failure from PNA Required 5 rounds of CPR and epinephrine x 5 for ROSC with total downtime 15-20 minutes (per ED physician) CTA negative for PE but shows widespread bilateral PNA. Echo with EF 65-70% Supportive care including moderate TTM for encephalopathy, IV abx and mechanical ventilation (3) Acute respiratory failure: Code(s): J96.00 - Acute respiratory failure, unspecified whether with hypoxia or hypercapnia Status: Acute Assessment and Plan: Acute Respiratory failure secondary to diffuse PNA leading to cardiac arrest. Possible aspiration CTA chest negative for PE but shows widespread PNA Recently diagnosed with RSV and positive here as well. On fingolimod which increases her risk of infection Repeat CT chest showing groundglass and tree-in-bud opacities along side more dependent consolidation in the bilateral lower lobes and with mild patchy dependent consolidation the bilateral upper lobes consistent with pneumonia. Continue full mechanical ventilation support Appreciate process design chemical engineer input (4) Coagulopathy: Code(s): D68.9 - Coagulation defect, unspecified Status: Acute Assessment and Plan: INR 5.[address] brain showing possible SAH and SDH. FFP ordered. VitK once Follow (5) Septic shock: Code(s): A41.9 - Sepsis, unspecified organism; R65.21 - Severe sepsis with septic shock Status: Acute Assessment and Plan: Patient developed shock requiring pressors likely multifactorial from sepsis and possibly a cardiogenic component after cardiac arrest WILLIAMS, Lactic acidosis with LA 11.9 -> 8.4. Patient received 3L IV fluids. Imaging showing PNA. UA noted and UCx ordered BCx ordered. Was on Levophed and B AND B GANG WORKER. Epinephrine added. IV fluids and stress dose steroids started. Continue vancomycin and meropenem (6) Acute kidney injury: Code(s): N17.9 - Acute kidney failure, unspecified Status: Acute Assessment and Plan: Secondary to respiratory failure and septic shock. Has rhabdomyolysis She has normal baseline renal fxn. Cr 2.5 with BUN 51 on admission. Bicarb 16 with AG 20 related to lactic and resp acidosis Possibly present prior to the arrest related to her declining condition or a result of the arrest She received contrast in the ED. CTA abdomen showing normal kidneys and bladder Black replaced and some UOP noted. Cr stable at 2.4 Continue IV fluids Monitor urine output electrolytes and renal function (7) Upper GI bleed: Code(s): K92.2 - Gastrointestinal hemorrhage, unspecified Status: Acute Assessment and Plan: Blood suctioned from gastric tube. Could be aspirated blood versus upper GI bleed She ws started on IV Protonix q.12 hours Monitor hemoglobin. Hold anticoagulation (8) Encephalopathy: Code(s): G93.40 - Encephalopathy, unspecified Status: Acute Assessment and Plan: Patient unresponsive at this time. Initial head CT negative. TSH normal Repeat CT brain showing anoxic brain injury. As above (9) Pneumonia: Code(s
[2024-05-09 18:27] LABS: Lactic Acid 6.1 mmol/L (0.7-2.0)
[2024-05-09 19:35] LABS: Glucose Point of Care 291 mg/dl (65-105)
[2024-05-09] MEDS: EPINEPHrine INJ 1 MG in DEXTROSE 5% IN WATER 250 ML 90.36 MG IV CONT (21:51)
[2024-05-09] MEDS: ARTIFICIAL TEARS OPHTH SOLN 15 ML BOTTLE 1 DROP EACH EYE (21:54)
[2024-05-09 23:32] LABS: Glucose Point of Care 368 mg/dl (65-105)
--- NOTE | 2024-05-09 23:36 | PC.NURSE ---
Patient's blood pressure dropping rapidly and still waiting for patient's daughter to arrive from out of state. Epinephrine maxed out per MD Herzog order.
[2024-05-10] VITALS (33 sets, daily range): BP systolic 91–128; BP diastolic 46–91; PULSE 125–142; RESP 14–20; TEMP 37.4–37.5; O2SAT 91–99
[2024-05-10] MEDS: EPINEPHrine INJ 1 MG in DEXTROSE 5% IN WATER 250 ML 150.6 MG IV CONT ×3 (00:04→03:24)
[2024-05-10] MEDS: NOREPINEPHRINE 8 MG/D5W 250 ML 8 MG/250 ML BAG 56.25 MG IV CONT ×3 (00:06→08:21)
[2024-05-10] MEDS: VASOPRESSIN INJ 100 UNITS in DEXTROSE 5% 95 ML IV CONT (00:09)
[2024-05-10 04:15] LABS: Hemoglobin 8.6 g/dL (12.0-15.0); Mean Corpuscular HGB Conc 29.7 g/dl (32-36); Mean Corpuscular Hemoglobin 25.8 pg (26-34); Mean Corpuscular Volume 87.1 fl (80-100); Mean Platelet Volume 12.1 fl (7.4-10.4); Platelet Count Result 144 k/mm3 (150-375); Red Blood Count 3.33 M/mm3 (4.2-5.4); Red Cell Distribution Width 16.4 % (11.5-14.5); White Blood Count 14.6 K/mm3 (4.5-10.0)
[2024-05-10 04:27] LABS: INR 3.5; Prothrombin Time 35.6 Seconds (11.1-14.7)
[2024-05-10 04:32] LABS: Albumin Level 3.8 g/dL (3.5-5.1); Alkaline Phosphatase 105 U/L (38-126); Anion Gap 20 mmol/L (4-12); Blood Urea Nitrogen 55 mg/dL (7-17); Calcium 6.3 mg/dL (8.4-10.2); Carbon Dioxide 22 mmol/L (22-30); Chloride 92 mmol/L (98-107); Estimated CRCL calculation 17 ml/min; Estimated Glomerular Filt Rate 17; Glucose 461 mg/dL (65-110); Sodium 134 mmol/L (137-145)
[2024-05-10 04:36] LABS: Alanine Aminotransferase 423 U/L (6-35); Creatine Kinase 3059 U/L (30-135)
[2024-05-10 04:47] LABS: Aspartate Amino Transferase 1781 U/L (14-36)
[2024-05-10 04:48] LABS: Band Neutrophils Percent 12 % (0-6); Basophils Absolute Manual 0.14 K/mm3 (0.0-0.1); Basophils Percent Manual 1 % (0-1); Lymphocytes Absolute Manual 0.14 K/mm3 (1.1-4.5); Lymphocytes Percent Manual 1 % (18-44); Monocytes Absolute Manual 0.43 K/mm3 (0.1-0.90); Monocytes Percent Manual 3 % (3-9); Neutrophils Absolute Manual 13.87 K/mm3 (1.7-7.2); Neutrophils Percent Manual 83 % (46-73); Total Cells Counted 100
[2024-05-10 04:49] LABS: Anisocytosis 1+; Burr Cells 1+; Ovalocytes 1+; Platelet Estimate Slightly Decreased (Adequate); Schistocytes None Seen
[2024-05-10] MEDS: HYDROCORTISONE SODIUM SUCCINATE 100 MG/2 ML VIAL IV PUSH (04:55)
[2024-05-10] MEDS: CENTRAL LINE FLUSH 10 ML IV PUSH (04:58)
[2024-05-10] MEDS: ALBUMIN HUMAN 25% 25 GM/100 ML 100 ML IVPB (04:58)
[2024-05-10 04:59] LABS: Glucose Point of Care 444 mg/dl (65-105)
[2024-05-10] MEDS: EPINEPHrine INJ 4 MG in DEXTROSE 5% IN WATER 250 ML 38.1 MG IV CONT (05:01)
[2024-05-10 05:09] LABS: Vancomycin Random 12.4 ug/mL (10-20)
[2024-05-10 05:13] LABS: Alveolar/Arterial O2 Gradient 410.8 mmHg; Base Excess ABG -6.8 mEq/l (+/-2.0); Carboxyhemoglobin 0.3 % THb (0-2.0); Fractional Inspired Oxygen 80 %; HCO3 ABG 21.6 mEq/l (22.0-26.0); Oxygen Content ABG 13.3 %vol (16.0-22.0); Oxygen Saturation ABG 95.7 % (95.0-100.0); Oxyhemoglobin 95.5 % THb (90.0-100.0); PCO2 ABG 58.4 mmHg (35.0-45.0); PO2 ABG 98.3 mmHg (80.0-100.0); PO2 FiO2 Ratio Arterial Blood 1.23 %; Reduced Hemoglobin 4.2 %THb (0-5.0); Total Hemoglobin 9.8 g/dL (12.0-18.0)
[2024-05-10 05:16] LABS: Arterial Blood Gas PEEP 5 cmH2O; Arterial Blood Gas Tidal Volume 400 ml; Arterial Blood Gas Vent Mode CMV; Arterial Blood Gas Ventilator rate 14 /MIN; Device VENTILATOR; Modified Allen's Test Pass; Site Drawn RIGHT RADIAL; pH ABG 7.185 (7.350-7.450)
[2024-05-10] MEDS: INSULIN HUMAN REGULAR (*BKC) 100 UNITS/ML 10 UNITS IV PUSH ×2 (05:51→08:17)
[2024-05-10] MEDS: SODIUM BICARBONATE 8.4% 50 MEQ/50 ML SYRINGE IV PUSH (05:51)
[2024-05-10] MEDS: VANCOMYCIN 1,000 MG/NS 250 ML 1,000 MG/250 ML BAG 250 MG IVPB (05:52)
[2024-05-10 07:54] LABS: Glucose Point of Care 406 mg/dl (65-105)
--- NOTE | 2024-05-10 07:56 | WPDINTPN ---
Progress Note: A&P Assessment and Plan (1) Anoxic brain injury: Code(s): G93.1 - Anoxic brain damage, not elsewhere classified Status: Acute Assessment and Plan: On presentation patient was encephalopathic and unresponsive. Patient was suspected to be having Anoxic brain injury Head CT negative on presentation. Patient was started Moderate TTM with goal temperature less than 36 C in light of shock, PEA arrest, coagulopathy, upper GI bleed Patient did not receive any sedatives since her presentation Normal ammonia and TSH. On exam patient did have spontaneous respiratory effort and minimal cough reflex Over next 24 hours exam deteriorated and on 05/09 morning patient was unresponsive to pain, did not have spontaneous respiratory effort or cough and gag on exam exam. Neurology was consulted. EEG was ordered but despite multiple calls to ED department was not performed Repeat head CT was done showed IMPRESSION: 1. Marked diffuse cerebral edema of indeterminate etiology with decrease in size of the ventricles, effacement of the sulci basal cisterns and brainstem herniation with effacement of CSF at the level of the foramen magnum and ring of C1. 2. Suggestion of a few foci of subarachnoid hemorrhage at the right temporal occipital region and small subdural hematoma along the right side of the tentorium. Interpretation is however resulting increased density of the vessels, dura and choroid plexus in the ventricles. This and the diffuse cerebral edema with brainstem herniation were discussed with Dr. Vazquez at 9:02 AM. Results were discussed with patient's family. Patient was made DNR by her POA and they were waiting for other family members to arrive. There has been no significant change in exam over last 24 hours. Patient does not exhibit any clinical signs of neurological activity. Exam as above EEG is being done at this time will be reviewed by Neurology Depending on discussion with the family, I may have to proceed with exam for but neurological criteria but apnea test may not be feasible or diagnostic considering patient's tenuous hemodynamics and worsening oxygen requirement leading to significant hypoxia. Will discuss with Neurology and also with Radiology to see if we can do a cerebral perfusion scan. (2) Encephalopathy: Code(s): G93.40 - Encephalopathy, unspecified Status: Acute Assessment and Plan: see above (3) Cardiac arrest: Code(s): I46.9 - Cardiac arrest, cause unspecified Status: Acute Assessment and Plan: PE a cardiac arrest likely appears to be respiratory in etiology as patient was hypoxic and short of breath prior to the event. Required 5 rounds of CPR and epinephrine x 5 for ROSC Information obtained from ED physician as EMS report not available CTA negative for PE Supportive care including treatment for sepsis, shock and acidosis as above Patient was started on Moderate TTM for anoxic encephalopathy Echo Summary 1. Complete two-dimensional, color flow and Doppler transthoracic echocardiogram is performed. 2. Normal left and right ventricular size and systolic function. 3. Mild tricuspid insufficiency velocities indicate estimated RV systolic pressure of 42 mmHg. 4. No significant valvular dysfunction. (4) Acute respiratory failure: Code(s): J96.00 - Acute respiratory failure, unspecified whether with hypoxia or hypercapnia Status: Acute Assessment and Plan: Acute Respiratory failure secondary to cardiac arrest and ammonia which is likely aspiration CT scan negative for PE ABG and vent settings reviewed Increase PEEP to 8 rate to 18 Continue full mechanical ventilation support to prevent hypoxemia/hypercarbia and end organ damage. (5) Shock: Code(s): R57.9 - Shock, unspecified Status: Acute Assessment and Plan: Likely multifactorial shock secondary to sepsis and possible cardiogenic component after cardiac arrest Patient ap
[2024-05-10] MEDS: PANTOPRAZOLE SODIUM IV 40 MG VIAL IV PUSH (08:17)
[2024-05-10] MEDS: MEROPENEM 500 MG/NS 100 ML 500 MG/100 ML BAG 200 MG IVPB (08:28)
--- NOTE | 2024-05-10 10:07 | WPDNEUROLOGY ---
Neurology EEG Report General Information Date of Study: 05/10/24 TEST eeg DIAGNOSIS Anoxic brain injury CONDITION OF RECORDING Comatose EEG NUMBER [id number] CLINICAL HISTORY patient is in ICU on vent following respiratory cardiac arrest. Remains unresponsive with no sedation. EEG DESCRIPTION Whole record consists of flat line with no evidence of any cerebral activity. IMPRESSION Abnormal record compatible with electrocerebral silence.
--- NOTE | 2024-05-10 10:34 | P.PNCROSS_ITS ---
Event Note Event Note Event Note: I met with patient's daughter and other family members and the conference room and presence of patient's nurse Lexy. I updated them patient's EEG results which showed electrocerebral silence.. They all have now accepted the patient has no neurological activity and her organs are being being supported by life supporting measures. They all are in agreement to proceed with palliative extubation. Eating for the communication equipment repairer and another family member to arrive and once everyone is ready they are going to proceed with palliative extubation. I answered all their questions and explained the process.
[2024-05-10] MEDS: MORPHINE SULFATE INJ (*CRX) 10 MG/ML AMP 5 MG IV PUSH (10:59)
--- NOTE | 2024-05-10 14:46 | PM.DDS ---
Discharge Summary Date and Time Date of : 05/10/24 Time of : 11:09 Provider Pronounced By: 2 RNs Name of First RN That Pronounced: Lexy Zhu RN Name of Second RN That Pronounced: Eileen Sanchez RN Probable Cause of Probable Cause of : anoxic brain injury Summary Hospital Course: 58-year-old female with PMH multiple sclerosis with bilateral lower extremity weakness who is a permanent alf resident, history of PE, kidney stones, depression and anxiety was brought in to [place] ER after sustaining a cardiac arrest. She required 5 rounds of CPR and epinephrine before ROSC was obtained. Reported approximately 19 minutes code time. Subsequently patient was intubated, placed on IV fluids antibiotics and Levophed admitted to the ICU on 05/08/2024. With direction from the ICU team the family decided to pursue palliative extubation 05/10/2024. EEG demonstrated electrocerebral silence. Patient shortly after. The following are contributing factors to with most acute conditions listed at top in underlying disorders at the bottom: Anoxic brain injury Cardiac arrest/shock/WILLIAMS/rhabdomyolysis/upper GI bleed/transaminitis/lactic acidosis Bacteria pneumonia/RSV/aspiration pneumonia Multiple sclerosis Additional Data Confirmation of as documented by pronouncing clinician: Pupillary Reflex, Palpable Pulses, Response to Stimuli, Heart Tones and Breath Sounds Name of Provider Notified: dr. leos and dr. ashley Time Provider Notified: 11:10 Provider Requests Autopsy: No Family Requests Autopsy: No Assistant Press Operator Offset Notified: Yes Date [facility] Notified of : 05/10/24 Time [facility] Notified of : 11:09
== END 2024-05-10 11:09 | disposition expired | DRG 871 ==
LOC: ANHED 09:22 → ANHICU 12:05
PROVIDERS: Internal Medicine; Admitting Provider Internal Medicine; Emergency Provider Emergency Medicine; PCP Internal Medicine; Visit Provider Internal Medicine
DX: A41.9 Sepsis, unspecified organism (principal); G93.6 Cerebral edema; J15.9 Unspecified bacterial pneumonia; R65.21 Severe sepsis with septic shock; J18.9 Pneumonia, unspecified organism; J69.0 Pneumonitis due to inhalation of food and vomit; J96.01 Acute respiratory failure with hypoxia; N17.9 Acute kidney failure, unspecified; G93.1 Anoxic brain damage, not elsewhere classified; K92.2 Gastrointestinal hemorrhage, unspecified; M62.82 Rhabdomyolysis; E87.21 Acute metabolic acidosis; G93.40 Encephalopathy, unspecified; D68.9 Coagulation defect, unspecified; M96.A3 Multiple fractures of ribs associated with chest compression and cardiopulmonary resuscitation; N39.0 Urinary tract infection, site not specified; I46.8 Cardiac arrest due to other underlying condition; G35 Multiple sclerosis; R57.0 Cardiogenic shock; B97.4 Respiratory syncytial virus as the cause of diseases classified elsewhere; R74.8 Abnormal levels of other serum enzymes; R73.9 Hyperglycemia, unspecified; F32.A Depression, unspecified; F41.9 Anxiety disorder, unspecified; Z20.822 Contact with and (suspected) exposure to COVID-19; Z66 Do not resuscitate; Z74.01 Bed confinement status; Z86.711 Personal history of pulmonary embolism; Z87.442 Personal history of urinary calculi; Z87.891 Personal history of nicotine dependence
CPT/HCPCS: 31500; 36415; 36430; 36600; 70450; 71045; 71250; 71275; 74176; 74177; 80048; 80053; 80202; 81001; 82140; 82375; 82550; 82570; 82805; 82948; 83050; 83605; 83735; 84100; 84145; 84300; 84443; 84484; 85025; 85027; 85380; 85384; 85610; 85730; 86850; 86900; 86901; 87040; 87070; 87077; 87086; 87088; 87186; 87205; 87637; 87641; 93005; 93306; 94002; 94003; 95816; 96361; 96365; 96366; 96375; 99291; A9270; C1751; C9113; J0171; J0613; J1720; J1815; J2185; J2270; J3370; J3430; J7030; J7060; J7120; P9017; P9047; Q9967